=== PATIENT | female | born 1970 | race Caucasian/White ===

== ENCOUNTER 2016-11-12 00:38 | Emergency (ER) | payer MEDICARE, MEDICAID ==
[~2016-11-12] VITALS: Ht 149.9 cm; Wt 90.7 kg
[~2016-11-12 00:38] MED LIST: AC325T PO; ACET-461 PO; ACET-819 PO; ACHD5005 PO; ASP81CT; ASP81TEC PO; ASPI-875 PO; CLCX200C PO; CYAN100053 IM; DCS100C PO; ENXP40I.4 SC; FLT05NA16 NSEACH; FLUT16SP22 NSEACH; HYDR-2997 PO; INSA10V; INSASP10V SC; INSU100I10 SQ; INSU100I14 SQ; INSU100V6; LEVE1U SQ; LISI-594 PO; LISI5TAB PO; LOPE2TAB17 PO; LVT.112T PO; LVT.1T PO; MEDR150D4 IM; MEDR5TAB4; METF-380 PO; OXYC-12 PO; POLY17PO23 PO; SIMV20TA3 PO; SIMV40TA2; SRTR100T PO; TRM50T PO; VITAMIN B12 IM
--- OUTSIDE RECORDS SUMMARY | 2016-11-12 00:45 | XMS REPORT | Continuity of Care Document ---
Author Author [facility] Organization [facility] Address Unknown Phone Unavailable Care Team Providers Care Practice Architect Name Role Phone ELIZABETHOMAIRA HAMMOND III DO PP Insurance Providers Payer Name Policy Number Subscriber Name Relationship [facility] [id number] Leonides Cedeno 01 Self / Same As Patient Wps Medicare [id number] Leonides Cedeno Self / Same As Patient Advance Directives Directive Response Recorded Date Advance Directives N 01/07/13 3:52pm Health Care Power of Infant Lead Teacher N 01/07/13 3:52pm Organ Donor N 01/07/13 3:52pm Problems No Known Problems or Medical conditions. Social History History Response Recorded Date/Time Alcohol Use Denies Use 01/07/13 3:53pm Recreational Drug Use N 01/07/13 3:53pm Recent Foreign Travel N 01/07/13 3:53pm Recent Infectious Disease Exposure N 3:53pm Hospitalization with Isolation Denies 3:53pm Allergies, Adverse Reactions, Alerts Allergen Type Severity Reaction Last Updated Cephalexin Allergy Mild 04/22/09 Medications Medication Dose Units Route Sig Qty Days Levothyroxine Sodium (Levothyroxine 112 Mcg Tab) 1 Each PO daily@0630 Insulin Detemir (Levemir Pen) 24 Units SQ HS Insulin Aspart (Novolog) 10 Unit SQ 1700 Insulin Aspart (Novolog Vial) 3 Unit SC 06,11 Fluticasone Propionate (Flonase 0.05% Nasal Baggs) 1 Sprays NSEACH HS [vitamin b-12 inj] 1000 Mcg IM monthly Celecoxib (Celebrex) 1 Each PO BID Loperamide HCl (Imodium A-D) 0 PO UD Medroxyprogesterone Acet (Medroxyprogesterone Acetate) 150 Mg IM EVERY 3 MONTHS Sertraline HCl (Zoloft) 100 Mg PO HS Simvastatin 20 Mg PO HS Metformin HCl (Metformin 1000 Mg) 1000 Mg PO BID Acetaminophen (Pain Relief Extra Strength) 1000 Mg PO Q6H PRN Fluticasone Propionate (Flonase 0.05% Nasal Baggs) 1 Baggs NSEACH HS Insulin Glargine (Lantus Solostar) 24 Units SQ HS Aspirin (Aspirin Ec 81 Mg) 81 Mg PO DAILY Lisinopril (Zestril) 5 Mg PO DAILY Levothyroxine Sodium (Levothyroxine 100 Mcg Tab) 100 Mcg PO DAILY Acetaminophen/Hydrocodone Bitart (Lortab 7.5/500 Tablet) 1 Each PO Q4HR PRN 15 Tramadol HCl (Ultram) 1 Tab PO QID 40 Insulin Aspart (Novolog Mix 70/30) Medroxyprogesterone Acetate (Medroxyprogesterone Acetatae) Immunizations Name Given Type Date of Pneumonia Vaccine 12/18/09 H Date of Influenza Vaccine 05/17/12 H Response Recorded Date/Time Status not known Unknown Results Test Date Result Interp. Ref. Range Activated Partial Thromboplast Time December 18, 2012 2:45pm 32 SEC N 24-35 Adrenocorticotropic Hormone January 15, 2013 5:45am 14 PG/ML - Alanine Aminotransferase (ALT/SGPT) September 27, 2011 12: 30pm 38 U/L N 30-65 Albumin September 27, 2011 12:30pm 3.4 G/ DL N 3.4-5.0 Alkaline Phosphatase September 27, 2011 12:30pm 84 U/L N 50-136 Aspartate Amino Transf (AST/SGOT) September 27, 2011 12:30pm 19 U/L N 15-37 BUN/Creatinine Ratio January 08, 2013 5:55am 17 - Basophils # (Auto) December 18, 2012 2:45pm 0.0 10^3/uL N 0.0-0.1 Basophils (%) (Auto) December 18, 2012 2:45pm 1 % N 0-10 Blood Urea Nitrogen January 08, 2013 5:55am 25 MG/DL H 7-18 Calcium Level January 08, 2013 5:55am 8.0 MG/DL L 8.5-10.1 Carbon Dioxide Level January 08, 2013 5:55am 27 MMOL/L N 21-32 Chloride Level January 08, 2013 5:55am 111 MMOL/L H 101-110 Cholesterol Level September 27, 2011 12:30pm 127 MG/DL N -200 Cortisol Baseline January 10, 2013 8:06am 0 24.5 - Cortisol Response to ACTH 1 Hour January 10, 2013 8:06am 3480 32.7 - Cortisol Response to ACTH 1/2 Hour January 10, 2013 8:06am 1560 29.9 - Creatinine January 14, 2013 6:22am 1.2 MG/ DL N 0.6-1.3 Eosinophils # (Auto) December 18, 2012 2:45pm 0.2 10^3/uL N 0.0-0.3 Eosinophils (%) (Auto) December 18, 2012 2:45pm 2 % N 0-10 Glucose Level January 08, 2013 5:55am 173 MG/DL H 74-106 HDL Cholesterol September 27, 2011 12:30pm 41 MG/DL N 35-60 Hematocrit January 08, 2013 5:55am 24 % L 35-52 Hemoglobin January 08, 2013 5:55am 7.7 G/ DL L 11.5-16.0 Hemoglobin A1c September 27, 2011 12:30pm 6.2 % N 4.5-6.2 Human Growth Hormone January 15, 2013 5:45am 0.4 NG/ML - LDL Cholesterol September 27, 2011 12:30pm 60 MG/DL N 0-129 Lipase January 16, 2006 6:37pm 129 U/L N 114-286 Lymphocytes # (Auto) December 18, 2012 2:45pm 3.0 X 10^3 N 1.0-4.0 Lymphocytes (%) (Auto) December 18, 2012 2:45pm 42 % N 12-44 Mean Corpuscular Hemoglobin December 18, 2012 2:45pm 32 PG N 25-34 Mean Corpuscular Hemoglobin Concent December 18, 2012 2:45pm 33 G/DL N 32-36 Mean Corpuscular Volume December 18, 2012 2:45pm 97 FL N 80-99 Mean Platelet Volume December 18, 2012 2:45pm 9.4 FL N 7.4-10.4 Miscellaneous Test Result January 10, 2013 8:06am ANTI-ADRENAL AB - Monocytes # (Auto) December 18, 2012 2:45pm 0.6 X 10^3 N 0.0-1.0 Monocytes (%) (Auto) December 18, 2012 2:45pm 8 % N 0-12 Neutrophils # (Auto) December 18, 2012 2:45pm 3.4 X 10^3 N 1.8-7.8 Neutrophils (%) (Auto) December 18, 2012 2:45pm 48 % N 42-75 Platelet Count December 18, 2012 2:45pm 365 10^3/uL N 130-400 Potassium Level January 08, 2013 5:55am 5.9 MMOL/L H 3.6-5.0 Prolactin January 15, 2013 5:45am 18.2 NG/ ML - Prothrombin Time December 18, 2012 2:45pm 12.9 SEC N 12.2-14.7 Red Blood Count December 18, 2012 2:45pm 3.88 10^6/uL L 4.35-5.85 Red Cell Distribution Width December 18, 2012 2:45pm 14.2 % N 10.0-14.5 Serum Test, Qualitative April 22, 2009 6:50pm NEGATIVE - Sodium Level January 08, 2013 5:55am 141 MMOL/L N 135-145 Thyroid Stimulating Hormone (TSH) January 07, 2013 5:40am 2.53 UIU/ML N 0.34-5.60 Total Bilirubin September 27, 2011 12:30pm 0.3 MG/DL N 0.0-1.0 Total Cortisol January 08, 2013 5:55am 4.7 L UG/DL - Total Protein September 27, 2011 12:30pm 7.5 G/DL N 6.4-8.2 Triglycerides Level September 27, 2011 12:30pm 128 MG/DL N 30.0-150.0 Urine Bacteria December 18, 2012 2:45pm MODERATE /HPF H - Urine Bilirubin December 18, 2012 2:45pm NEGATIVE - Urine Casts December 18, 2012 2:45pm NONE / LPF - Urine Clarity December 18, 2012 2:45pm CLEAR - Urine Color December 18, 2012 2:45pm YELLOW - Urine Creatinine Calculated September 27, 2011 12:30pm 1.32 G/L - Urine Crystals December 18, 2012 2:45pm NONE /LPF - Urine Culture Indicated December 18, 2012 2:45pm YES - Urine Glucose (UA) December 18, 2012 2:45pm NEGATIVE - Urine HCG, Qualitative January 16, 2006 6:37pm Negative - Urine Hyaline Casts January 16, 2006 6:28pm 0 -2 H - Urine Ketones December 18, 2012 2:45pm NEGATIVE - Urine Leukocyte Esterase December 18, 2012 2:45pm TRACE H - Urine Microalbumin/Creatinine Ratio September 27, 2011 12: 30pm 214.9 H MG/GCR - Urine Mucus December 18, 2012 2:45pm NEGATIVE /LPF - Urine Nitrate January 16, 2006 6:28pm Negative - Urine Nitrite December 18, 2012 2:45pm NEGATIVE - Urine Test January 05, 2013 10:40am NEGATIVE - Urine Protein December 18, 2012 2:45pm 2+ H - Urine RBC December 18, 2012 2:45pm NONE / HPF - Urine Random Microalbumin September 27, 2011 12:30pm 283.7 H MG/L - Urine Specific Prole December 18, 2012 2:45pm 1.015 L - Urine Squamous Epithelial Cells December 18, 2012 2:45pm 0-2 /HPF - Urine Urobilinogen December 18, 2012 2:45pm NORMAL MG/DL - Urine WBC December 18, 2012 2:45pm 0-2 / HPF - Urine pH December 18, 2012 2:45pm 6 - VLDL Cholesterol September 27, 2011 12:30pm 26 MG/DL N 5-40 Vitamin B12 Level January 08, 2013 5:55am 223 PG/ML - White Blood Count December 18, 2012 2:45pm 7.2 10^3/uL N 4.3-11.0 Urine Creatinine mg/dL September 27, 2011 12:30pm 132 MG/DL - Glucometer January 16, 2013 11:00am 114 MG/ DL H 70-110 Smear Scan January 16, 2006 6:37pm Yes - Estimat Glomerular Filtration Rate December 18, 2012 2:45pm 42 - Urine RBC (Auto) December 18, 2012 2:45pm NEGATIVE - INR Comment December 18, 2012 2:45pm 1.0 N 0.8-1.4 Procedures Procedure Code Date TOTAL HIP REPLACEMENT 81.51 01/05/13 MRSA Screen 01/05/13 Urine Culture 12/18/12 Encounters Encounter Location Date/Time Discharged Inpatient [facility] 3:05pm Registered Emergency Room [facility] 12:00am Departed Emergency Room [facility] 12 :00am
[2016-11-12 01:00] LABS: BASOPHILS % (AUTO) 1 % (0-10); EOSINOPHILS # (AUTO) 0.1 10^3/uL (0.0-0.3); EOSINOPHILS % (AUTO) 1 % (0-10); LYMPHOCYTES # (AUTO) 2.2 X 10^3 (1.0-4.0); LYMPHOCYTES % (AUTO) 31 % (12-44); MEAN CORPUSCULAR HEMOGLOBIN 28 PG (25-34); MEAN CORPUSCULAR HGB CONC 31 G/DL (32-36); MEAN CORPUSCULAR VOLUME 90 FL (80-99); MONOCYTES # (AUTO) 0.7 X 10^3 (0.0-1.0); MONOCYTES % (AUTO) 9 % (0-12); NEUTROPHILS % (AUTO) 58 % (42-75); PLATELET COUNT 600 10^3/uL (130-400); RED BLOOD COUNT 3.08 10^6/uL (4.35-5.85); RED CELL DISTRIBUTION WIDTH 15.7 % (10.0-14.5); WHITE BLOOD COUNT 6.9 10^3/uL (4.3-11.0)
[2016-11-12] MEDS ORDERED: DEXTROSE 50% 50 ML (IMS) SYR IV ONE (01:00)
[2016-11-12 01:16] LABS: ALBUMIN 2.8 G/DL (3.2-4.5); BILIRUBIN,TOTAL 0.2 MG/DL (0.1-1.0); CALCIUM 8.5 MG/DL (8.5-10.1); CREATININE SERUM 2.76 MG/DL (0.60-1.30); POTASSIUM 5.5 MMOL/L (3.6-5.0)
[2016-11-12] MEDS ORDERED: D5 NS 1000 ML IV SOLUTION 1,000 ML IV ONE (01:57)
--- NOTE | 2016-11-12 02:15 | ED General ---
General Chief Complaint: Glucose Problems Stated Complaint: GLUCOSE PROBLEMS Nursing Triage Note: BROUGHT IN BY [facility] FOR C/O ALTERED MENTAL STATUS, LOW BLOOD GLUCOSE. Nursing Sepsis Screen: No Definite Risk Source of Information: Patient (LIMITED HISTORIAN), Caregiver (FACILITY NURSE) , EMS History of Present Illness Time Seen by Provider: 00:35 Initial Comments PT ARRIVES VIA EMS FROM [place] PT IS INSULIN DEPENDENT DIABETIC. BLOOD GLUCOSE WAS 68 AT [facility], WAS GIVEN LONG ACTING INSULIN AT 2100 AFTER A SNACK OF COTTAGE CHEESEALCIRA PER SPECIAL PROJECTS MANAGER. PT BEGAN TO HAVE DECREASED MENTATION AND ACCUCHECK WAS 23 PER [facility]FF EMS REPORT THAT ACCUCHECK WAS 43 ON THEIR ARRIVAL AND THEY GAVE PT ORAL GLUCOSE ACCUCHECK IS 44 ON ARRIVAL HERE PT HAS NO COMPLAINTS PT STATES SHE FEELS FINE. SPECIAL PROJECTS MANAGER REPORTS THAT BLOOD SUGAR WAS IN 300'S YESTERDAY. NO CHANGE IN INSULIN DOSE Allergies and Home Medications Allergies Coded Allergies: Cephalexin (Unverified Allergy, Mild, 04/22/09) Home Medications Acetaminophen 500 Mg Tablet 1,000 MG PO Q6H PRN PRN (Reported) PRN PAIN/ ELEVATED TEMP TAKES 2 OF 500MG TABS EVERY 6 HOURS NEEDED Acetaminophen 325 Mg Tablet 650 MG PO Q4hrs. PRN PRN (Reported) Aspirin 81 Mg Tablet.dr 81 MG PO DAILY (Reported) Cyanocobalamin 1,000 Mcg/Ml Vial 1,000 MCG IM MONTHLY (Reported) Docusate Sodium 100 Mg Capsule 100 MG PO DAILY PRN PRN (Reported) PRN CONSTIPATION WHILE TAKING PAIN MEDS Enoxaparin Sodium 40 Mg/0.4 Ml Soln 40 MG SC DAILY (Reported) Lovenox 40mg sc daily; STOP on 03/16/13. Fluticasone Propionate 16 Gm Naspr 1 SPRAY NSEACH HS (Reported) Insulin Glargine,Hum.rec.anlog 300 Unit/3 Ml Insuln.pen 24 UNITS SQ HS (Reported ) Levothyroxine Sodium 112 Mcg Tablet 112 MCG PO DAILY (Reported) Lisinopril 5 Mg Tablet 5 MG PO DAILY (Reported) Loperamide Hcl 2 Mg Tablet 0 PO UD PRN PRN (Reported) 2 CAPS INITIALLY, THEN 1 CAP AFTER EACH LOOSE STOOL. NOT TO EXCEED 8/24 HRS PRN PRN DIARRHEA Medroxyprogesterone Acet 150 Mg/1 Ml Disp.syrin 150 MG IM EVERY 3 MONTHS ( Reported) Metformin Hcl 1,000 Mg Tablet 1,000 MG PO BID (Reported) Oxycodone Hcl/Acetaminophen 1 Each Tablet #90 1-2 TAB PO Q4HRS. PRN PRN ( Reported) PERCOCET 5/325: 1-2 TABS P.O. Q4HRS.PRN PAIN. Polyethylene Glycol 17 Gm Pack 17 GM PO DAILY @ 1999 (Reported) Sertraline Hcl 100 Mg Tab 100 MG PO HS (Reported) Simvastatin 20 Mg Tablet 20 MG PO HS (Reported) Constitutional: see HPI Respiratory: no symptoms reportedNo short of breath Cardiovascular: no symptoms reportedNo chest pain, No syncope Gastrointestinal: no symptoms reported Genitourinary: other (CHRONIC RENAL INSUFFICIENCY--LAST GFR WAS 23 PER SPECIAL PROJECTS MANAGER) Musculoskeletal: other (PT RECENTLY HAD SURGERY ON LEFT LEG--POSTERIOR/ LATERAL TO LEFT KNEE. ---PT HAD PART OF HARDWARE REMOVED (HAD PLATE PLACED IN FEMUR AND SCREWS WERE POKING THROUGH SKIN) --SURGERY DONE IN [place] BY DR. ESPINOZA. WOUND HAS COMPLETELY DEHISCED. NO DRESSING IS OVER THE WOUND. NO DRAINAGE OR REDNESS FROM WOUND. PT IS NON-AMBULATORY) Skin: other ( ABOVE) Psychiatric/Neurological: See HPI Hematologic/Lymphatic: Anemia Past Sqaodte-Toyxlb-Ofknrp Hx Patient Social History Alcohol Use: Denies Use Recreational Drug Use: No Smoking Status: Never a Smoker Recent Foreign Travel: No Contact w/Someone Who Travel: No Recent Infectious Disease Expo: No Recent Hopitalizations: Yes (HARDWARE REMOVAL FROM LEFT LEG) Immunizations Up To Date Tetanus Booster (TDap): Less than 5yrs Date of Pneumonia Vaccine: Jun 15, 2011 Date of Influenza Vaccine: May 17, 2012 Seasonal Allergies Seasonal Allergies: No Surgeries HX Surgeries: Yes (LEFT HIP FUSION WHEN 4; LEFT HIP REPLACEMENT/ REMOVAL DUE TO FAILURE AND INFECTED HARDWARE AND FEMUR FRACTURE; REPAIR OF FEMUR FRACTURE AND REVISION OF HIP REPLACEMENT; PART OF HARDWARE REMOVED LEFT DISTAL FEMUR 2016--DR. ESPINOZA. ) Surgeries: Orthopedic Respiratory Hx Respiratory Disorders: No Cardiovascular Hx Cardiac Disorders: Yes Cardiac Disorders: Hypertension Neurological Hx Neurological Disorders: Yes (DOWN'S SYNDROME; MR) Neurological Disorders: Developmental Disorder Reproductive System : No Hx Reproductive Disorders: No Genitourinary Hx Genitourinary Disorders: Yes (CHRONIC RENAL FAILURE--GFR 23 PER SPECIAL PROJECTS MANAGER ON 11/12/16) Genitourinary Disorders: Renal Failure Gastrointestinal Hx Gastrointestinal Disorders: No Musculoskeletal Hx Musculoskeletal Disorders: Yes (LEFT HIP AND FEMUR SURGERIES. NON-AMBLATORY BUT CAN STAND FOR TRANSFERS WITH ASSIST, PER CAREGIVER ON 11/12/16) Musculoskeletal Disorders: Arthritis Endocrine Hx Endocrine Disorders: Yes Endocrine Disorders: Diabetes, Insulin dep, Hypothyroidsim HEENT HX ENT Disorders: Yes (GLASSES; POOR DENTITION) Cancer Hx Cancer: No Psychosocial Hx Psychiatric Problems: Yes (DOWN'S ; DEVELOPMENTAL DISORDER) Integumentary HX Skin/Integumentary Disorder: No Blood Transfusions Hx Blood Disorders: Yes (CHRONIC ANEMIA--BASELINE 9-10, PER SPECIAL PROJECTS MANAGER ON ) Physical Exam Vital Signs Vital Sign - Last 12Hours 11/12/16 00:41 Temp 97.9 Pulse 86 Resp 18 B/P 150/103 Pulse Ox 97 O2 Delivery Room Air Capillary Refill : Less Than 3 Seconds General Appearance: No Apparent Distress WD/WN Obese Other (SMILING, VERY TALKATIVE. ) HEENT: Other (POOR DENTITION) Neck: Normal Inspection Respiratory: Normal Breath Sounds No Accessory Muscle Use No Respiratory Distress Cardiovascular: Regular Rate, Rhythm No Murmur Normal Peripheral Pulses Gastrointestinal: Non Tender Soft Extremity: Other (APPROXIMATELY 3 X 4 CM DEHISCED WOUND TO LEFT POSTERIOR/ LATERAL KNEE AREA. NO DRAINAGE, NO SIGNIFICANT ERYTHEMA. LEFT LOWER LEG WITH HEAVY ЕЛЕНА BANDAGE-SPECIAL PROJECTS MANAGER REPORTS IT IS IN PLACE TO PREVENT SWELLING, BUT NO DRESSING IS OVER THE SURGICAL WOUND. ) Neurologic/Psychiatric: Alert No Motor/Sensory Deficits Normal Mood/Affect personnel technician II-XII Norm as Tested Other (NORMAL BASELINE OF --ORIENTED TO PERSON, KNOWS SHE LIVES IN [place], DOES NOT KNOW TIME, MONTH, YEAR. KNOWS SHE IS HERE BECAUSE BLOOD SUGAR WAS LOW BUT DOES NOT RECALL EVENTS OF TONIGHT. ) Skin: Normal Color Warm/Dry Other (SURGICAL WOUND ABOVE) Progress/Results/Core Measures Results/Orders Lab Results Laboratory Tests Test 11/12/16 00:43 11/12/16 00:55 11/12/16 01:41 11/12/16 02:25 Range/Units Glucometer 44 *L 141 H 70-110 MG/DL Alanine Aminotransferase (ALT/SGPT) 21 0-55 U/L Albumin 2.8 L 3.2-4.5 G/DL Alkaline Phosphatase 77 40-136 U/L Anion Gap 11 5-14 MMOL/L Aspartate Amino Transf (AST/SGOT) 21 5-34 U/L BUN/Creatinine Ratio 18 Basophils # (Auto) 0.0 0.0-0.1 10^3/uL Basophils (%) (Auto) 1 0-10 % Blood Urea Nitrogen 50 H 7-18 MG/DL Calcium Level 8.5 8.5-10.1 MG/DL Carbon Dioxide Level 20 L 21-32 MMOL/L Chloride Level 111 H 98-107 MMOL/L Creatinine 2.76 H 0.60-1.30 MG/DL Eosinophils # (Auto) 0.1 0.0-0.3 10^3/uL Eosinophils (%) (Auto) 1 0-10 % Estimat Glomerular Filtration Rate 19 Glucose Level 47 *L 70-105 MG/DL Hematocrit 28 L 35-52 % Hemoglobin 8.6 L 11.5-16.0 G/DL Lymphocytes # (Auto) 2.2 1.0-4.0 X 10^3 Lymphocytes (%) (Auto) 31 12-44 % Mean Corpuscular Hemoglobin 28 25-34 PG Mean Corpuscular Hemoglobin Concent 31 L 32-36 G/DL Mean Corpuscular Volume 90 80-99 FL Mean Platelet Volume 9.0 7.4-10.4 FL Monocytes # (Auto) 0.7 0.0-1.0 X 10^3 Monocytes (%) (Auto) 9 0-12 % Neutrophils # (Auto) 4.0 1.8-7.8 X 10^3 Neutrophils (%) (Auto) 58 42-75 % Platelet Count 600 H 130-400 10^3/uL Potassium Level 5.5 H 3.6-5.0 MMOL/L Red Blood Count 3.08 L 4.35-5.85 10^6/uL Red Cell Distribution Width 15.7 H 10.0-14.5 % Sodium Level 142 135-145 MMOL/L Total Bilirubin 0.2 0.1-1.0 MG/DL Total Protein 8.0 6.4-8.2 G/DL White Blood Count 6.9 4.3-11.0 10^3/uL Urine Bacteria NEGATIVE /HPF Urine Bilirubin NEGATIVE NEGATIVE Urine Casts NONE /LPF Urine Clarity CLEAR Urine Color YELLOW Urine Crystals NONE /LPF Urine Culture Indicated NO Urine Glucose (UA) NEGATIVE NEGATIVE Urine Ketones NEGATIVE NEGATIVE Urine Leukocyte Esterase 2+ H NEGATIVE Urine Mucus NEGATIVE /LPF Urine Nitrite NEGATIVE NEGATIVE Urine Protein 3+ H NEGATIVE Urine RBC NONE /HPF Urine RBC (Auto) 1+ H NEGATIVE Urine Specific Albin 1.015 L 1.016-1.022 Urine Squamous Epithelial Cells RARE /HPF Urine Urobilinogen NORMAL NORMAL MG/DL Urine WBC RARE /HPF Urine pH 6 5-9 Test 11/12/16 02:54 Range/Units Glucometer 323 H 70-110 MG/DL My Orders Orders-GABRIELLE WALLACE DO Accucheck Stat ONCE (11/12/16 00:51) Saline Lock/Iv-Start (11/12/16 00:51) Cbc With Automated Diff (11/12/16 00:51) Comprehensive Metabolic Panel (11/12/16 00:51) Ua Culture If Indicated (11/12/16 00:51) D50w (Emergency) Syringe (Dextrose 50% 5 (11/12/16 01:00) Saline Lock/Iv-Start (11/12/16 01:57) D5 Ns 1000 Ml Iv Solution (Dextrose 5%/0 (11/12/16 01:57) Accucheck Stat ONCE (11/12/16 02:52) Medications Given in ED Current Medications Medications Dose Ordered Sig/Merary Route Start Time Stop Time Status Last Admin Dose Admin Dextrose 50 ml 50 ml ONCE ONCE IV 11/12/16 01:00 11/12/16 01:01 DC 11/12/16 00:57 50 ML Dextrose/Sodium Chloride 1,000 ml @ 0 mls/hr Q0M ONCE IV 11/12/16 01:57 11/12/16 01:58 DC 11/12/16 02:05 0 MLS/HR Vital Signs/I&O Vital Sign - Last 12Hours 11/12/16 11/12/16 00:41 03:00 Temp 97.9 98.0 Pulse 86 84 Resp 18 16 B/P 150/103 Pulse Ox 97 100 O2 Delivery Room Air Blood Pressure Mean: 74 Point of Care Testing Finger Stick Blood Glucose: 141 Blood Glucose Action Taken: ERP NOTIFIED Progress Note : Progress Note REPEAT ACCUCHECK 141 REPEAT ACCUCHECK 323 PRIOR TO DISMISSAL DRESSING PLACED OVER WOUND TO LEFT LEG Departure Impression Impression: Primary Impression: Hypoglycemia associated with diabetes Disposition: HOME, SELF-CARE Condition: Improved Departure-Patient Inst. Referrals: PIERRE PEOPLES MD (PCP) Primary Care Physician Patient Instructions: HYPOGLYCEMIA Add. Discharge Instructions: CHECK BLOOD SUGAR EVERY HOUR X 4 TONIGHT, THEN IF STABLE, MAY RESUME ACCUCHECKS 4 TIMES A DAY-BEFORE EACH MEAL AND AT BEDTIME CONTINUE REGULAR INSULIN DOSES IF BLOOD SUGAR READINGS ARE >100 RETURN TO ER IF SYMPTOMS PERSIST All discharge instructions reviewed with patient and/or family. Voiced understanding. GABRIELLE WALLACE DO Nov 12, 2016 02:15
[2016-11-12 02:33] LABS: BILIRUBIN,URINE NEGATIVE (NEGATIVE); KETONES,URINE NEGATIVE (NEGATIVE); LEUKOCYTE ESTERASE ,URINE 2+ (NEGATIVE); NITRITE,URINE NEGATIVE (NEGATIVE); PH,URINE 6 (5-9); PROTEIN,URINE 3+ (NEGATIVE); UROBILINOGEN,URINE NORMAL (NORMAL)
[2016-11-12 02:44] LABS: SQUAMOUS EPITHELIAL CELL,UR RARE /HPF; WBC,URINE RARE /HPF
[2016-11-12 03:00] VITALS: BP 137/69
== END 2016-11-12 03:00 | disposition home or self-care (01) ==
LOC: EDUNIT# 00:38 → ER 00:40
DX: E11.649 Type 2 diabetes mellitus with hypoglycemia without coma (principal); Q90.9 Down syndrome, unspecified; T81.31XA Disruption of external operation (surgical) wound, not elsewhere classified, initial encounter; Z79.4 Long term (current) use of insulin; Z79.84 Long term (current) use of oral hypoglycemic drugs; Z79.899 Other long term (current) drug therapy
CPT/HCPCS: 36415; 80053; 81000; 82962; 85025; 96361; 96374

== ENCOUNTER → 2016-11-25 | Outpatient (CLI) | payer MEDICARE, MEDICAID ==
[2016-11-25 08:02] LABS: CALCIUM 8.2 MG/DL (8.5-10.1); CREATININE SERUM 2.28 MG/DL (0.60-1.30); POTASSIUM 5.2 MMOL/L (3.6-5.0)
== END ==
PROVIDERS: ATTEND Family Medicine
DX: Z51.81 Encounter for therapeutic drug level monitoring (principal); Z79.2 Long term (current) use of antibiotics
CPT/HCPCS: 80048; 80202

== ENCOUNTER → 2016-12-01 | Outpatient (CLI) | payer MEDICARE, MEDICAID ==
[2016-12-01 09:28] LABS: CALCIUM 8.1 MG/DL (8.5-10.1); CREATININE SERUM 2.12 MG/DL (0.60-1.30); POTASSIUM 5.2 MMOL/L (3.6-5.0)
== END ==
PROVIDERS: ATTEND Family Medicine
DX: M86.9 Osteomyelitis, unspecified (principal)
CPT/HCPCS: 80048; 80202

== ENCOUNTER → 2016-12-02 | Outpatient (CLI) | payer MEDICARE, MEDICAID | PROVIDERS: ATTEND Family Medicine | DX: M86.9 Osteomyelitis, unspecified (principal) | CPT/HCPCS: 80202 ==

== ENCOUNTER 2017-09-23 13:00 | Outpatient (RCR) | payer MEDICARE, MEDICAID | END 2017-10-31 16:11 | disposition home or self-care (01) | PROVIDERS: ATTEND Orthopaedic Surgery Sports Medicine | DX: Z98.890 Other specified postprocedural states (principal) ==

== ENCOUNTER 2017-10-08 13:43 | Outpatient (RCR) | payer MEDICARE, MEDICAID ==
[2017-08-01 13:36] LABS: ABSOLUTE RETIC # 49 10e9/L (24-90); BASOPHILS % (AUTO) 1 % (0-10); EOSINOPHILS # (AUTO) 0.1 10^3/uL (0.0-0.3); EOSINOPHILS % (AUTO) 2 % (0-10); HEMATOCRIT 27 % (35-52); HEMOGLOBIN 8.8 G/DL (11.5-16.0); LYMPHOCYTES # (AUTO) 2.5 X 10^3 (1.0-4.0); LYMPHOCYTES % (AUTO) 31 % (12-44); MEAN CORPUSCULAR HEMOGLOBIN 30 PG (25-34); MEAN CORPUSCULAR HGB CONC 32 G/DL (32-36); MEAN CORPUSCULAR VOLUME 93 FL (80-99); MEAN PLATELET VOLUME 9.3 FL (7.4-10.4); MONOCYTES # (AUTO) 0.6 X 10^3 (0.0-1.0); MONOCYTES % (AUTO) 8 % (0-12); NEUTROPHILS # (AUTO) 4.6 X 10^3 (1.8-7.8); NEUTROPHILS % (AUTO) 58 % (42-75); PLATELET COUNT 461 10^3/uL (130-400); RED BLOOD COUNT 2.93 10^6/uL (4.35-5.85); RED CELL DISTRIBUTION WIDTH 14.3 % (10.0-14.5); RETICULOCYTE % 1.68 % (0.50-2.40); WHITE BLOOD COUNT 7.9 10^3/uL (4.3-11.0)
[2017-08-01 14:13] LABS: BILIRUBIN,TOTAL 0.3 MG/DL (0.1-1.0); CALCIUM 9.1 MG/DL (8.5-10.1); CREATININE SERUM 3.92 MG/DL (0.60-1.30); POTASSIUM 4.3 MMOL/L (3.6-5.0); TOTAL PROTEIN 7.7 GM/DL (6.4-8.2)
[~2017-10-08 13:43] MED LIST changes: +DARBEPOETIN 40 MCG/ML (ARANESP) 1 ML VIAL SC SCH
== END 2017-10-30 | disposition home or self-care (01) ==
LOC: ONC 13:43
PROVIDERS: ATTEND Internal Medicine Hematology & Oncology
DX: N18.4 Chronic kidney disease, stage 4 (severe) (principal); D63.1 Anemia in chronic kidney disease; I12.9 Hypertensive chronic kidney disease with stage 1 through stage 4 chronic kidney disease, or unspecified chronic kidney disease; E11.22 Type 2 diabetes mellitus with diabetic chronic kidney disease; E03.9 Hypothyroidism, unspecified; D47.3 Essential (hemorrhagic) thrombocythemia; E66.01 Morbid (severe) obesity due to excess calories; Z68.41 Body mass index [BMI] 40.0-44.9, adult; Z79.899 Other long term (current) drug therapy
CPT/HCPCS: 36415; 80053; 82728; 83540; 85025; 85045; 96372

== ENCOUNTER 2018-02-11 13:52 | Outpatient (RCR) | payer MEDICARE, MEDICAID ==
[2017-12-03 13:47] LABS: ABSOLUTE RETIC # 38 10e9/L (24-90); BASOPHILS % (AUTO) 0 % (0-10); EOSINOPHILS # (AUTO) 0.1 10^3/uL (0.0-0.3); EOSINOPHILS % (AUTO) 2 % (0-10); HEMATOCRIT 30 % (35-52); HEMOGLOBIN 9.6 G/DL (11.5-16.0); LYMPHOCYTES # (AUTO) 2.1 X 10^3 (1.0-4.0); LYMPHOCYTES % (AUTO) 31 % (12-44); MEAN CORPUSCULAR HEMOGLOBIN 31 PG (25-34); MEAN CORPUSCULAR HGB CONC 32 G/DL (32-36); MEAN CORPUSCULAR VOLUME 96 FL (80-99); MEAN PLATELET VOLUME 9.3 FL (7.4-10.4); MONOCYTES # (AUTO) 0.6 X 10^3 (0.0-1.0); MONOCYTES % (AUTO) 8 % (0-12); NEUTROPHILS # (AUTO) 3.9 X 10^3 (1.8-7.8); NEUTROPHILS % (AUTO) 58 % (42-75); PLATELET COUNT 388 10^3/uL (130-400); RED BLOOD COUNT 3.12 10^6/uL (4.35-5.85); RED CELL DISTRIBUTION WIDTH 15.5 % (10.0-14.5); RETICULOCYTE % 1.21 % (0.50-2.40); WHITE BLOOD COUNT 6.7 10^3/uL (4.3-11.0)
[2017-12-03 14:04] LABS: ALBUMIN 3.2 GM/DL (3.2-4.5); BILIRUBIN,TOTAL 0.3 MG/DL (0.1-1.0); CALCIUM 9.1 MG/DL (8.5-10.1); CREATININE SERUM 4.3 MG/DL (0.60-1.30); POTASSIUM 4.5 MMOL/L (3.6-5.0); TOTAL PROTEIN 7.8 GM/DL (6.4-8.2)
[2018-02-11 14:06] LABS: BASOPHILS % (AUTO) 0 % (0-10); EOSINOPHILS # (AUTO) 0.2 10^3/uL (0.0-0.3); EOSINOPHILS % (AUTO) 2 % (0-10); HEMATOCRIT 31 % (35-52); HEMOGLOBIN 9.9 G/DL (11.5-16.0); LYMPHOCYTES # (AUTO) 2.3 X 10^3 (1.0-4.0); LYMPHOCYTES % (AUTO) 33 % (12-44); MEAN CORPUSCULAR HEMOGLOBIN 31 PG (25-34); MEAN CORPUSCULAR HGB CONC 32 G/DL (32-36); MEAN CORPUSCULAR VOLUME 96 FL (80-99); MEAN PLATELET VOLUME 9.6 FL (7.4-10.4); MONOCYTES # (AUTO) 0.5 X 10^3 (0.0-1.0); MONOCYTES % (AUTO) 7 % (0-12); NEUTROPHILS # (AUTO) 3.9 X 10^3 (1.8-7.8); NEUTROPHILS % (AUTO) 58 % (42-75); PLATELET COUNT 380 10^3/uL (130-400); RED BLOOD COUNT 3.18 10^6/uL (4.35-5.85); RED CELL DISTRIBUTION WIDTH 15.1 % (10.0-14.5); WHITE BLOOD COUNT 6.8 10^3/uL (4.3-11.0)
== END 2018-02-18 | disposition home or self-care (01) ==
LOC: ONC 13:52
PROVIDERS: ATTEND Internal Medicine Hematology & Oncology
DX: N18.4 Chronic kidney disease, stage 4 (severe) (principal); D63.1 Anemia in chronic kidney disease; I12.9 Hypertensive chronic kidney disease with stage 1 through stage 4 chronic kidney disease, or unspecified chronic kidney disease; E11.22 Type 2 diabetes mellitus with diabetic chronic kidney disease; E03.9 Hypothyroidism, unspecified; D47.3 Essential (hemorrhagic) thrombocythemia; E66.01 Morbid (severe) obesity due to excess calories; Z68.41 Body mass index [BMI] 40.0-44.9, adult; Z79.899 Other long term (current) drug therapy
CPT/HCPCS: 36415; 80053; 82728; 85025; 85045; 96372

== ENCOUNTER 2018-03-21 13:00 | Outpatient (RCR) | payer MEDICARE, MEDICAID ==
[~2018-03-21 13:00] MED LIST changes: -DARBEPOETIN 40 MCG/ML (ARANESP) 1 ML VIAL SC SCH
== END 2018-03-21 13:51 | disposition home or self-care (01) ==
PROVIDERS: ATTEND Internal Medicine Nephrology
DX: R26.9 Unspecified abnormalities of gait and mobility (principal); Z96.642 Presence of left artificial hip joint

== ENCOUNTER 2018-05-20 15:20 | Outpatient (RCR) | payer MEDICARE, MEDICAID ==
[2018-02-25 12:16] LABS: BASOPHILS % (AUTO) 1 % (0-10); EOSINOPHILS # (AUTO) 0.1 10^3/uL (0.0-0.3); EOSINOPHILS % (AUTO) 2 % (0-10); HEMATOCRIT 31 % (35-52); HEMOGLOBIN 10.4 G/DL (11.5-16.0); LYMPHOCYTES # (AUTO) 1.7 X 10^3 (1.0-4.0); LYMPHOCYTES % (AUTO) 30 % (12-44); MEAN CORPUSCULAR HEMOGLOBIN 32 PG (25-34); MEAN CORPUSCULAR HGB CONC 33 G/DL (32-36); MEAN CORPUSCULAR VOLUME 96 FL (80-99); MEAN PLATELET VOLUME 9.7 FL (7.4-10.4); MONOCYTES # (AUTO) 0.4 X 10^3 (0.0-1.0); MONOCYTES % (AUTO) 8 % (0-12); NEUTROPHILS # (AUTO) 3.4 X 10^3 (1.8-7.8); NEUTROPHILS % (AUTO) 60 % (42-75); PLATELET COUNT 380 10^3/uL (130-400); RED BLOOD COUNT 3.26 10^6/uL (4.35-5.85); RED CELL DISTRIBUTION WIDTH 14.8 % (10.0-14.5); WHITE BLOOD COUNT 5.7 10^3/uL (4.3-11.0)
[2018-03-11 12:55] LABS: BASOPHILS % (AUTO) 1 % (0-10); EOSINOPHILS # (AUTO) 0.1 10^3/uL (0.0-0.3); EOSINOPHILS % (AUTO) 2 % (0-10); HEMATOCRIT 31 % (35-52); HEMOGLOBIN 10.2 G/DL (11.5-16.0); LYMPHOCYTES # (AUTO) 1.9 X 10^3 (1.0-4.0); LYMPHOCYTES % (AUTO) 29 % (12-44); MEAN CORPUSCULAR HEMOGLOBIN 31 PG (25-34); MEAN CORPUSCULAR HGB CONC 33 G/DL (32-36); MEAN CORPUSCULAR VOLUME 95 FL (80-99); MEAN PLATELET VOLUME 9.1 FL (7.4-10.4); MONOCYTES # (AUTO) 0.4 X 10^3 (0.0-1.0); MONOCYTES % (AUTO) 6 % (0-12); NEUTROPHILS % (AUTO) 62 % (42-75); PLATELET COUNT 390 10^3/uL (130-400); RED BLOOD COUNT 3.27 10^6/uL (4.35-5.85); RED CELL DISTRIBUTION WIDTH 14.5 % (10.0-14.5); WHITE BLOOD COUNT 6.4 10^3/uL (4.3-11.0)
[2018-04-08 14:56] LABS: BASOPHILS % (AUTO) 1 % (0-10); EOSINOPHILS # (AUTO) 0.1 10^3/uL (0.0-0.3); EOSINOPHILS % (AUTO) 2 % (0-10); HEMATOCRIT 29 % (35-52); HEMOGLOBIN 9.3 G/DL (11.5-16.0); LYMPHOCYTES # (AUTO) 1.8 X 10^3 (1.0-4.0); LYMPHOCYTES % (AUTO) 28 % (12-44); MEAN CORPUSCULAR HEMOGLOBIN 32 PG (25-34); MEAN CORPUSCULAR HGB CONC 33 G/DL (32-36); MEAN CORPUSCULAR VOLUME 97 FL (80-99); MEAN PLATELET VOLUME 9.1 FL (7.4-10.4); MONOCYTES # (AUTO) 0.5 X 10^3 (0.0-1.0); MONOCYTES % (AUTO) 7 % (0-12); NEUTROPHILS # (AUTO) 4.2 X 10^3 (1.8-7.8); NEUTROPHILS % (AUTO) 63 % (42-75); PLATELET COUNT 374 10^3/uL (130-400); RED BLOOD COUNT 2.94 10^6/uL (4.35-5.85); RED CELL DISTRIBUTION WIDTH 15.2 % (10.0-14.5); WHITE BLOOD COUNT 6.6 10^3/uL (4.3-11.0)
[2018-04-23 10:54] LABS: BASOPHILS # (AUTO) 0.1 10^3/uL (0.0-0.1); BASOPHILS % (AUTO) 1 % (0-10); EOSINOPHILS # (AUTO) 0.1 10^3/uL (0.0-0.3); EOSINOPHILS % (AUTO) 2 % (0-10); HEMATOCRIT 32 % (35-52); HEMOGLOBIN 10.6 G/DL (11.5-16.0); LYMPHOCYTES # (AUTO) 1.9 X 10^3 (1.0-4.0); LYMPHOCYTES % (AUTO) 28 % (12-44); MEAN CORPUSCULAR HEMOGLOBIN 32 PG (25-34); MEAN CORPUSCULAR HGB CONC 33 G/DL (32-36); MEAN CORPUSCULAR VOLUME 98 FL (80-99); MEAN PLATELET VOLUME 9.5 FL (7.4-10.4); MONOCYTES # (AUTO) 0.5 X 10^3 (0.0-1.0); MONOCYTES % (AUTO) 8 % (0-12); NEUTROPHILS # (AUTO) 4.1 X 10^3 (1.8-7.8); NEUTROPHILS % (AUTO) 61 % (42-75); PLATELET COUNT 394 10^3/uL (130-400); RED BLOOD COUNT 3.28 10^6/uL (4.35-5.85); RED CELL DISTRIBUTION WIDTH 15.9 % (10.0-14.5); WHITE BLOOD COUNT 6.7 10^3/uL (4.3-11.0)
[~2018-05-20 15:20] MED LIST changes: +DARBEPOETIN 40 MCG/ML (ARANESP) 1 ML VIAL SC SCH
== END 2018-05-26 | disposition home or self-care (01) ==
LOC: ONC 15:20
PROVIDERS: ATTEND Internal Medicine Hematology & Oncology
DX: N18.4 Chronic kidney disease, stage 4 (severe) (principal); D63.1 Anemia in chronic kidney disease; I12.9 Hypertensive chronic kidney disease with stage 1 through stage 4 chronic kidney disease, or unspecified chronic kidney disease; E11.22 Type 2 diabetes mellitus with diabetic chronic kidney disease; E03.9 Hypothyroidism, unspecified; D47.3 Essential (hemorrhagic) thrombocythemia; E66.01 Morbid (severe) obesity due to excess calories; Z68.41 Body mass index [BMI] 40.0-44.9, adult; Z79.899 Other long term (current) drug therapy
CPT/HCPCS: 36415; 85025; 96372

== ENCOUNTER 2018-06-03 12:37 | Outpatient (RCR) | payer MEDICARE, MEDICAID | END 2018-06-15 | disposition home or self-care (01) | LOC: ONC 12:37 | PROVIDERS: ATTEND Internal Medicine Hematology & Oncology | DX: N18.4 Chronic kidney disease, stage 4 (severe) (principal); D63.1 Anemia in chronic kidney disease; I12.9 Hypertensive chronic kidney disease with stage 1 through stage 4 chronic kidney disease, or unspecified chronic kidney disease; E11.22 Type 2 diabetes mellitus with diabetic chronic kidney disease; E03.9 Hypothyroidism, unspecified; D47.3 Essential (hemorrhagic) thrombocythemia; E66.01 Morbid (severe) obesity due to excess calories; Z68.41 Body mass index [BMI] 40.0-44.9, adult; Z79.899 Other long term (current) drug therapy | CPT/HCPCS: 96372 ==

== ENCOUNTER 2018-08-28 13:43 | Emergency (ER) | payer MEDICARE ==
[~2018-08-28] VITALS: Ht 157.5 cm; Wt 85.7 kg
[~2018-08-28 13:43] MED LIST changes: -ENOX80DI12 SQ; -WARF3TAB56 PO
--- OUTSIDE RECORDS SUMMARY | 2018-08-28 13:52 | XMS REPORT ---
Author Author JANUSZ AVILA Organization [employer] Address Unknown Phone Unavailable Care Team Providers Care Offensive Coordinator Name Role Phone JANUSZ AVILA CP Unavailable Allergies No Known Allergies Problems Problem Type Condition ICD-9 Code Onset Dates Condition Status Assessment Dental examination V72.2 Active Medications No Known Medications Procedures Procedure Coding System Code Date INTRAORL-PERIAPICAL 1 FILM 71102 CPT-4 D0220 May 10, 2015 EXTRAC ERUPTED TOOTH/EXPOSED ROOT CPT-4 D7140 May 10, 2015 LTD ORAL EVALUATION - PROBLEM FOCUS CPT-4 D0140 May 10, 2015 Results No Known Results Summary Purpose [employer] Submission
--- OUTSIDE RECORDS SUMMARY | 2018-08-28 13:53 | XMS REPORT | Continuity of Care Document ---
Author Author [facility] Organization [facility] Address Unknown Phone Unavailable Care Team Providers Care Emery Grinder Name Role Phone PIERRE PEOPLES MD PP Insurance Providers Payer Name Policy Number Subscriber Name Relationship [facility] [id number] Leonides Cedeno 01 Self / Same As Patient Wps Medicare [id number] Leonides Cedeno Self / Same As Patient Advance Directives Directive Response Recorded Date Advance Directives N 02/20/13 1:07pm Health Care Power of Bread Wrapping Machine Feeder N 02/20/13 1:07pm Organ Donor N 02/20/13 1:07pm Problems No Known Problems or Medical conditions. Social History History Response Recorded Date/Time Alcohol Use Denies Use 02/20/13 4:33pm Recreational Drug Use N 02/20/13 4:33pm Recent Foreign Travel N 02/20/13 4:33pm Recent Infectious Disease Exposure N 03/28 4:33pm Hospitalization with Isolation Denies 4:34pm Allergies, Adverse Reactions, Alerts Allergen Type Severity Reaction Last Updated Cephalexin Allergy Mild 04/22/09 Medications Medication Dose Units Route Sig Qty Days Oxycodone Hcl/Acetaminophen (Percocet 5-325 Mg Tablet) 1 - 2 Tab PO Q4HRS. PRN 90 Enoxaparin Sodium (Lovenox Injection) 40 Mg SC DAILY Acetaminophen (Tylenol) 650 Mg PO Q4hrs. PRN Aspirin ([place] Aspirin) 81 Mg PO DAILY Lisinopril (Zestril) 5 Mg PO DAILY Polyethylene Glycol (Miralax 17 Gm Packet) 17 Gm PO DAILY @ 1999 Insulin Glargine (Lantus Solostar) 24 Units SQ HS Cyanocobalamin 1000 Mcg IM MONTHLY Acetaminophen (Tylenol Extra Strength [place]) 1000 Mg PO Q6H PRN Docusate Sodium (Colace) 100 Mg PO DAILY PRN Fluticasone Propionate (Flonase Nasal [place]) 1 [place] NSEACH HS Levothyroxine Sodium (Levothyroxine 112 Mcg Tab) 112 Mcg PO DAILY Loperamide HCl (Imodium A-D) 0 PO UD PRN Medroxyprogesterone Acet (Medroxyprogesterone Acetate) 150 Mg IM EVERY 3 MONTHS Sertraline HCl (Zoloft) 100 Mg PO HS Simvastatin 20 Mg PO HS Metformin HCl (Metformin 1000 Mg) 1000 Mg PO BID Insulin Detemir (Levemir Pen) 24 Units SQ HS Insulin Aspart (Novolog) 10 Unit SQ 1700 Insulin Aspart (Novolog Vial) 3 Unit SC [vitamin b-12 inj] 1000 Mcg IM monthly Acetaminophen (Pain Relief Extra Strength) 1000 Mg PO Q6H PRN Fluticasone Propionate (Flonase 0.05% Nasal [place]) 1 [place] NSEACH HS Insulin Glargine (Lantus Solostar) 24 [...] Name Given Type Date of Pneumonia Vaccine 06/15/11 H Date of Influenza Vaccine 05/17/12 H Response Recorded Date/Time Status not known Unknown Results Test Date Result Interp. Ref. Range Activated Partial Thromboplast Time February 17, 2013 2:00pm 27 SEC N 24-35 Adrenocorticotropic Hormone January 15, 2013 5:45am 14 PG/ML - Alanine Aminotransferase (ALT/SGPT) September 27, 2011 12: 30pm 38 U/L N 30-65 Albumin September 27, 2011 12:30pm 3.4 G/ DL N 3.4-5.0 Alkaline Phosphatase September 27, 2011 12:30pm 84 U/L N 50-136 Aspartate Amino Transf (AST/SGOT) September 27, 2011 12:30pm 19 U/L N 15-37 BUN/Creatinine Ratio February 17, 2013 2:00pm 28 - Basophils # (Auto) February 17, 2013 2:00pm 0.1 10^3/uL N 0.0-0.1 Basophils (%) (Auto) February 17, 2013 2:00pm 1 % N 0-10 Blood Urea Nitrogen February 17, 2013 2:00pm 44 MG/DL H 7-18 Calcium Level February 17, 2013 2:00pm 8.3 MG/DL L 8.5-10.1 Carbon Dioxide Level February 17, 2013 2:00pm 25 MMOL/L N 21-32 Chloride Level February 17, 2013 2:00pm 100 MMOL/L L 101-110 Cholesterol Level September 27, 2011 12:30pm 127 MG/DL N -200 Cortisol Baseline January 10, 2013 8:06am 0 24.5 - Cortisol Response to ACTH 1 Hour January 10, 2013 8:06am 3480 32.7 - Cortisol Response to ACTH 1/2 Hour January 10, 2013 8:06am 1560 29.9 - Creatinine February 17, 2013 2:00pm 1.6 MG/ DL H 0.6-1.3 Eosinophils # (Auto) February 17, 2013 2:00pm 0.3 10^3/uL N 0.0-0.3 Eosinophils (%) (Auto) February 17, 2013 2:00pm 4 % N 0-10 Glucose Level February 17, 2013 2:00pm 208 MG/DL H 74-106 HDL Cholesterol September 27, 2011 12:30pm 41 MG/DL N 35-60 Hematocrit February 17, 2013 2:00pm 33 % L 35-52 Hemoglobin February 17, 2013 2:00pm 10.3 G/ DL L 11.5-16.0 Hemoglobin A1c September 27, 2011 12:30pm 6.2 % N 4.5-6.2 Human Growth Hormone January 15, 2013 5:45am 0.4 NG/ML - LDL Cholesterol September 27, 2011 12:30pm 60 MG/DL N 0-129 Lipase January 16, 2006 6:37pm 129 U/L N 114-286 Lymphocytes # (Auto) February 17, 2013 2:00pm 2.4 X 10^3 N 1.0-4.0 Lymphocytes (%) (Auto) February 17, 2013 2:00pm 35 % N 12-44 Mean Corpuscular Hemoglobin February 17, 2013 2:00pm 31 PG N 25-34 Mean Corpuscular Hemoglobin Concent February 17, 2013 2:00pm 32 G/DL N 32-36 Mean Corpuscular Volume February 17, 2013 2:00pm 97 FL N 80-99 Mean Platelet Volume February 17, 2013 2:00pm 9.4 FL N 7.4-10.4 Miscellaneous Test Result January 10, 2013 8:06am ANTI-ADRENAL AB - Monocytes # (Auto) February 17, 2013 2:00pm 0.4 X 10^3 N 0.0-1.0 Monocytes (%) (Auto) February 17, 2013 2:00pm 6 % N 0-12 Neutrophils # (Auto) February 17, 2013 2:00pm 3.8 X 10^3 N 1.8-7.8 Neutrophils (%) (Auto) February 17, 2013 2:00pm 55 % N 42-75 Platelet Count February 17, 2013 2:00pm 468 10^3/uL H 130-400 Potassium Level February 17, 2013 2:00pm 5.1 MMOL/L H 3.6-5.0 Prolactin January 15, 2013 5:45am 18.2 NG/ ML - Prothrombin Time February 17, 2013 2:00pm 12.7 SEC N 12.2-14.7 Red Blood Count February 17, 2013 2:00pm 3.36 10^6/uL L 4.35-5.85 Red Cell Distribution Width February 17, 2013 2:00pm 15.8 % H 10.0-14.5 Serum Test, Qualitative April 22, 2009 6:50pm NEGATIVE - Sodium Level February 17, 2013 2:00pm 133 MMOL/L L 135-145 Thyroid Stimulating Hormone (TSH) January 07, 2013 5:40am 2.53 UIU/ML N 0.34-5.60 Total Bilirubin September 27, 2011 12:30pm 0.3 MG/DL N 0.0-1.0 Total Cortisol January 08, 2013 5:55am 4.7 L UG/DL - Total Protein September 27, 2011 12:30pm 7.5 G/DL N 6.4-8.2 Triglycerides Level September 27, 2011 12:30pm 128 MG/DL N 30.0-150.0 Urine Bacteria February 17, 2013 2:00pm FEW /HPF H - Urine Bilirubin February 17, 2013 2:00pm NEGATIVE - Urine Casts February 17, 2013 2:00pm NONE / LPF - Urine Clarity February 17, 2013 2:00pm CLEAR - Urine Color February 17, 2013 2:00pm YELLOW - Urine Creatinine Calculated September 27, 2011 12:30pm 1.32 G/L - Urine Crystals February 17, 2013 2:00pm NONE /LPF - Urine Culture Indicated February 17, 2013 2:00pm YES - Urine Glucose (UA) February 17, 2013 2:00pm NEGATIVE - Urine HCG, Qualitative January 16, 2006 6:37pm Negative - Urine Hyaline Casts January 16, 2006 6:28pm 0 -2 H - Urine Ketones February 17, 2013 2:00pm NEGATIVE - Urine Leukocyte Esterase February 17, 2013 2:00pm 1+ H - Urine Microalbumin/Creatinine Ratio September 27, 2011 12: 30pm 214.9 H MG/GCR - Urine Mucus February 17, 2013 2:00pm NEGATIVE /LPF - Urine Nitrate January 16, 2006 6:28pm Negative - Urine Nitrite February 17, 2013 2:00pm NEGATIVE - Urine Test January 05, 2013 10:40am NEGATIVE - Urine Protein February 17, 2013 2:00pm NEGATIVE - Urine RBC February 17, 2013 2:00pm NONE / HPF - Urine Random Microalbumin September 27, 2011 12:30pm 283.7 H MG/L - Urine Specific [place] February 17, 2013 2:00pm 1.020 - Urine Squamous Epithelial Cells February 17, 2013 2:00pm 0-2 /HPF - Urine Urobilinogen February 17, 2013 2:00pm NORMAL MG/DL - Urine WBC February 17, 2013 2:00pm 5-10 / HPF H - Urine pH February 17, 2013 2:00pm 5 - VLDL Cholesterol September 27, 2011 12:30pm 26 MG/DL N 5-40 Vitamin B12 Level January 08, 2013 5:55am 223 PG/ML - White Blood Count February 17, 2013 2:00pm 6.8 10^3/uL N 4.3-11.0 Urine Creatinine mg/dL September 27, 2011 12:30pm 132 MG/DL - Glucometer January 16, 2013 11:00am 114 MG/ DL H 70-110 Smear Scan January 16, 2006 6:37pm Yes - Estimat Glomerular Filtration Rate February 17, 2013 2:00pm 36 - Urine RBC (Auto) February 17, 2013 2:00pm NEGATIVE - INR Comment February 17, 2013 2:00pm 1.0 N 0.8-1.4 Procedures Procedure Code Date TOTAL HIP REPLACEMENT 81.51 01/05/13 ANGEL OF HIP REPLACEMENT, FEMORAL COMPONENT 00.72 02/20/13 MRSA Screen 02/17/13 Urine Culture 02/17/13 Encounters Encounter Location Date/Time Discharged Inpatient [facility] 6:56am Registered Emergency Room [facility] 12:00am Departed Emergency Room [facility] 12 :00am
--- OUTSIDE RECORDS SUMMARY | 2018-08-28 13:53 | XMS REPORT | Continuity of Care Document ---
Author Author [facility] Organization [facility] Address Unknown Phone Unavailable Care Team Providers Care Die Sinking Machine Operator Name Role Phone PIERRE PEOPLES MD PP Insurance Providers Payer Name Policy Number Subscriber Name Relationship [facility] [id number] Leonides Cedeno 01 Self / Same As Patient Wps Medicare [id number] Leonides Cedeno Self / Same As Patient Advance Directives Directive Response Recorded Date Advance Directives N 02/20/13 1:07pm Health Care Power of Auto Leasing Manager N 02/20/13 1:07pm Organ Donor N 02/20/13 [...] (Tylenol) 650 Mg PO Q4hrs. PRN Aspirin ([place] Aspirin) 81 Mg PO DAILY Lisinopril (Zestril) 5 Mg PO DAILY Polyethylene Glycol (Miralax 17 Gm Packet) 17 Gm PO DAILY @ 1999 Insulin Glargine (Lantus Solostar) 24 Units SQ HS Cyanocobalamin 1000 Mcg IM MONTHLY Acetaminophen (Tylenol Extra Strength Arthrit) 1000 Mg PO Q6H PRN Docusate Sodium (Colace) 100 Mg PO DAILY PRN Fluticasone Propionate (Flonase Nasal [place]) 1 [place] NSEACH HS Levothyroxine Sodium (Levothyroxine 112 Mcg [...] Q6H PRN Fluticasone Propionate (Flonase 0.05% Nasal [place]) 1 [place] NSEACH HS Insulin Glargine (Lantus Solostar) 24 [...] 12:30pm 283.7 H MG/L - Urine Specific [place] February 17, 2013 2:00pm 1.020 - Urine [...]
--- OUTSIDE RECORDS SUMMARY | 2018-08-28 13:55 | XMS REPORT | Continuity of Care Document ---
Author Author [facility] Organization [facility] Address Unknown Phone Unavailable Allergies Active Description Code Type Severity Reaction Onset Reported/Identified Relationship to Patient Clinical Status Yes KEFLEX KEFLEX UNKNOWN Yes ЕЛЕНА INHIBITORS UNKNOWN OTHER Yes KEFLEX UNKNOWN DERMATOLOGICAL - HIV Yes cephalexin [id number] Drug Allergy Mild N/A 04/22/2009 Medications Medication Packaging Start Date Stop Date Route Dosage Sig NORMAL SALINE 1000CC IV BAG INJ 0.9 % (NS 1000CC IV BAG) ml 11/06/2016 11/07/2016 CONTINUOUSEVERY 0 Hour CLINDAMYCIN 600MG/50CC BAG IV 600 MG/50CC (CLEOCIN PREMIX 600MG/ 50CC) MG 11/06/2016 11/06/2016 ONCE&0830 FENTANYL AMP INJ 100 MCG/2CC MCG 11/13/2016 ONCE&1023 MEDROXYPROGESTERONE SYRINGE INJ 150 MG (DEPO-PROVERA SYRINGE) MG 11/13/2016 11/13/2016 ONCE&1054 NORMAL SALINE 1000CC IV BAG INJ 0.9 % (NS 1000CC IV BAG) ml 11/13/2016 11/14/2016 CONTINUOUSEVERY 0 Hour CYANOCBALAMIN VIAL INJ 1000 MCG/CC (VIT B12 VIAL) MCG 11/13/2016 11/13/2016 PRN Q4WK MEDROXYPROGESTERONE SYRINGE INJ 150 MG (DEPO-PROVERA SYRINGE) MG 11/13/2016 11/13/2016 ONCE&1328 NORMAL SALINE 250CC IV BAG INJ 0.9 % (NS 250CC IV BAG) ml 11/13/2016 11/13/2016 ONCE&1345 HYDROCODONE/APAP 7.5/325 TAB 0 (NEGRITO-TAB 7.5/325) TAB 11/13/2016 11/28/2016 PRN Q4H ACETAMINOPHEN ORAL TABLET 325mg(Tylenol) MG 11/13/2016 11/23/2016 PRN EVERY 4 Hour D5 1/2 NS 1000CC IV BAG INJ 0 ml 11/20/2016 CONTINUOUSEVERY 0 Hour OXYCODONE 5MG/APAP 325MG TAB 0 (PERCOCET-5) TAB 11/13/2016 11/20/2016 PRN Q4H ONDANSETRON VIAL INJ 4 MG/2CC (ZOFRAN 2CC VIAL) MG 11/13/2016 11/20/2016 PRN Q4H MEPERIDINE SYRINGE INJ 75 MG/CC (DEMEROL SYRINGE) MG 11/13/2016 11/20/2016 PRN Q4H MEPERIDINE SYRINGE INJ 50 MG/CC (DEMEROL SYRINGE) MG 11/13/2016 11/20/2016 PRN Q4H Docusate sodium 100mg oral capsule (COLACE) MG 11/13/2016 11/23/2016 BID&0800,2000 INSULIN DETEMIR PEN INJ 100 UNITS/CC (LEVEMIR FLEXPEN) UNITS 11/13/2016 11/27/2016 QHS&2100 NORMAL SALINE 250CC IV BAG INJ 0.9 % (NS 250CC IV BAG) ml 11/13/2016 11/17/2016 Q12H - 11:59, 23:59&1159,2359 NORMAL SALINE 1000CC IV BAG INJ 0.9 % (NS 1000CC IV BAG) ml 11/14/2016 11/29/2016 CONTINUOUSEVERY 0 Hour NEOSTIGMINE VIAL INJ 1 MG/CC (BLOXIVERZ 10CC VIAL) MG 11/14/2016 11/29/2016 PRN Daily METOPROLOL XR TAB 25 MG (TOPROL XL) MG 11/14/2016 11/28/2016 Daily&0900 SERTRALINE TAB 50 MG (ZOLOFT) MG 12/13/2016 Daily&0900 CYANOCBALAMIN VIAL INJ 1000 MCG/CC (VIT B12 VIAL) MCG 11/14/2016 11/29/2016 PRN Q4WK FLUTICASONE NASAL INHALER MDI 50 MCG (FLONASE NOSE SPRAY) PUFF(S) 11/14/2016 11/28/2016 Daily&0900 GLIMEPIRIDE TAB 2 MG (AMARYL) MG 11/28/2016 Daily&0900 POLYETHYLENE GLYCOL POWDER UD PWD 0 (MIRALAX 17GM UNIT DOSE PAKS) gm 11/14/2016 11/28/2016 Daily&0900 LEVOTHYROXINE TAB 125 MCG (SYNTHROID) MCG 11/14/2016 11/28/2016 Daily&0900 FUROSEMIDE VIAL INJ 20 MG (LASIX VIAL) MG 11/14/2016 11/14/2016 ONCE&0925 INSULIN ASPART PEN INJ 100 UNITS/CC (NOVOLOG FLEXPEN) 11/14/2016 12/14/2016 ACHS&0630,1130,1630,2100 NORMAL SALINE 250CC IV BAG INJ 0.9 % (NS 250CC IV BAG) ml 11/14/2016 11/23/2016 Q24H&2359 ACETAMINOPHEN ORAL TABLET 325mg(Tylenol) MG 11/15/2016 11/25/2016 PRN EVERY 4 Hour D5 1/2 NS 1000CC IV BAG INJ 0 ml 11/22/2016 CONTINUOUSEVERY 0 Hour NORMAL SALINE 1000CC IV BAG INJ 0.9 % (NS 1000CC IV BAG) ml 11/15/2016 11/30/2016 CONTINUOUSEVERY 0 Hour OXYCODONE 5MG/APAP 325MG TAB 0 (PERCOCET-5) TAB 11/15/2016 11/22/2016 PRN Q4H ONDANSETRON VIAL INJ 4 MG/2CC (ZOFRAN 2CC VIAL) MG 11/15/2016 11/22/2016 PRN Q4H MEPERIDINE SYRINGE INJ 75 MG/CC (DEMEROL SYRINGE) MG 11/15/2016 11/22/2016 PRN Q4H INSULIN ASPART PEN INJ 100 UNITS/CC (NOVOLOG FLEXPEN) 11/16/2016 12/16/2016 ACHS&0630,1130,1630,2100 NORMAL SALINE 0.9 % (NS 100cc) (plain bag) ml 11/16/2016 11/25/2016 Q24H&2359 sodium polystyrene sulfonate (Kayexalate) oral suspension GMS 11/17/2016 11/17/2016 ONCE&0909 sodium polystyrene sulfonate (Kayexalate) oral suspension GMS 11/17/2016 11/17/2016 ONCE&1653 sodium polystyrene sulfonate (Kayexalate) oral suspension GMS 11/18/2016 11/19/2016 TID&1400,2200 sodium polystyrene sulfonate (Kayexalate) oral suspension GMS 11/18/2016 11/19/2016 TID&0800,2000 sodium polystyrene sulfonate (Kayexalate) oral suspension GMS 11/19/2016 11/19/2016 TID&1400,2200 HYDROCODONE/APAP 5MG/325MG TAB 5 MG/325MG (NEGRITO-TAB 5/325) TAB 08/13/2017 08/13/2017 ONCE&1259 NORMAL SALINE 250CC IV BAG INJ 0.9 % (NS 250CC IV BAG) ml 08/13/2017 08/13/2017 ONCE&1346 CALCIUM CARBONATE TAB 500 MG (TUMS) Dose(s) 08/13/2017 08/20/2017 PRN Q4H NORMAL SALINE 1000CC IV BAG INJ 0.9 % (NS 1000CC IV BAG) ml 08/13/2017 08/28/2017 CONTINUOUSEVERY 0 Hour HYDROCODONE/APAP 5MG/325MG TAB 5 MG/325MG (NEGRITO-TAB 5/325) TAB 08/13/2017 08/23/2017 PRN Q4H DIPHENHYDRAMINE CAP 25 MG (BENADRYL) Dose(s) 08/13/2017 08/20/2017 PRN Q6H ACETAMINOPHEN TAB 500 MG (TYLENOL) MG 08/13/2017 08/27/2017 PRN Q6H Docusate sodium 100mg oral capsule (COLACE) Dose(s) 08/13/2017 08/23/2017 BID&0800,2000 MILK OF IRINA JANSENQ Dose(s) 201608/20/2017 PRN BID SERTRALINE TAB 50 MG (ZOLOFT) Dose(s) 08/13/2017 08/19/2017 QHS&2100 FERROUS SULFATE TAB 325 MG (FEOSOL) MG 08/14/2017 08/20/2017 TID&0800,1400,2000 FLUTICASONE NASAL INHALER MDI 50 MCG (FLONASE NOSE SPRAY) Dose(s) 08/14/2017 08/20/2017 Daily&0900 GLIMEPIRIDE TAB 2 MG (AMARYL) Dose(s) 08/14/2017 08/20/2017 Daily&0900 POLYETHYLENE GLYCOL POWDER UD PWD (MIRALAX 17GM UNIT DOSE PAKS) Dose(s) 08/14/2017 08/20/2017 Daily&0900 METOPROLOL TAB 25 MG (LOPRESSOR) MG 08/14/2017 08/20/2017 Daily&0900 VITAMIN D-3 TAB 1000 UNITS (VITAMIN D-3) Dose( s) 08/14/2017 08/20/2017 Daily&0900 INSULIN ASPART PEN INJ 100 UNITS/CC (NOVOLOG FLEXPEN) UNITS 08/14/2017 09/12/2017 Daily&2100 LEVOTHYROXINE TAB 125 MCG (SYNTHROID) MCG 08/14/2017 08/20/2017 Daily&0900 PANTOPAZOLE VIAL INJ 40 MG (PROTONIX IV) MG 08/14/2017 08/20/2017 Daily&0900 INSULIN ASPART PEN INJ 100 UNITS/CC (NOVOLOG FLEXPEN) UNITS 08/14/2017 08/16/2017 Daily&1700 Problems Date Dx Coded Attending Type Code Diagnosis Diagnosed By 08/15/1350 ETHAN ORTEGA, BEATA Ot R26.9 UNSPECIFIED ABNORMALITIES OF GAIT AND MO 08/15/1350 ETHAN ORTEGA, BEATA Ot Z96.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 08/15/1610 OLGA ORTEGA, TUNG Aguilera Ot Z98.890 OTHER SPECIFIED POSTPROCEDURAL STATES 01/07/2013 Ot 244.9 01/07/2013 Ot 250.00 01/07/2013 Ot 272.4 01/07/2013 Ot 276.50 01/07/2013 Ot 276.7 01/07/2013 Ot 278.01 01/07/2013 Ot 285.1 01/07/2013 Ot 311 01/07/2013 Ot 401.9 01/07/2013 Ot 715.25 01/07/2013 Ot 755.63 01/07/2013 Ot 758.0 01/07/2013 Ot 788.5 01/07/2013 Ot 791.0 01/07/2013 Ot V85.41 03/03/2013 OMAIRA HAYS DO Ot 244.9 03/03/2013 OMAIRA HAYS DO Ot 250.00 03/03/2013 OMAIRA HAYS DO Ot 276.1 03/03/2013 OMAIRA HAYS DO Ot 276.7 03/03/2013 OMAIRA HAYS DO Ot 285.1 03/03/2013 OMAIRA HAYS DO Ot 403.90 03/03/2013 OMAIRA HAYS DO Ot 585.9 03/03/2013 OMAIRA HAYS DO Ot 758.0 03/03/2013 [facility] OMAIRA TRIPP Ot 996.44 03/03/2013 [facility] OMAIRA TRIPP Ot 996.47 03/03/2013 [facility] OMAIRA TRIPP Ot 996.66 03/03/2013 [facility] 998.32 03/03/2013 [facility] OMAIRA TRIPP Ot V43.64 11/03/2016 Chey Pascual 996.49 OTHER MECHANICAL COMPLICATION OF OTHER INTERNAL ORTHOPEDIC DEVICE, IMPLANT, AND GRAFT 11/03/2016 Chey Pascual T84.125A DISPLACEMENT OF INTERNAL FIXATION DEVICE OF LEFT FEMUR, INIT 11/06/2016 TUNG ESPINOZA 041.11 METHICILLIN SUSCEPTIBLE STAPHYLOCOCCUS AUREUS INFECTION IN CONDITIONS CLASSIFIED ELSEWHERE AND OF UNSPECIFIED SITE 11/06/2016 TUNG ESPINOZA 719.46 PAIN IN JOINT INVOLVING LOWER LEG 11/06/2016 TUNG ESPINOZA 758.0 DOWN' S SYNDROME 11/06/2016 TUNG ESPINOZA 996.49 OTHER MECHANICAL COMPLICATION OF OTHER INTERNAL ORTHOPEDIC DEVICE, IMPLANT, AND GRAFT 11/06/2016 TUNG ESPINOZA A49.01 METHICILLIN SUSCEP STAPH INFECTION, UNSP SITE 11/06/2016 TUNG ESPINOZA M25.562 PAIN IN LEFT KNEE 11/06/2016 TUNG ESPINOZA Q90.9 DOWN SYNDROME, UNSPECIFIED 11/06/2016 TUNG ESPINOZA T84.125A DISPLACEMENT OF INTERNAL FIXATION DEVICE OF LEFT FEMUR, INIT 11/12/2016 GABRIELLE WALLACE DO Ot E11.649 TYPE 2 DIABETES MELLITUS WITH HYPOGLYCEM 11/12/2016 GABRIELLE WALLACE DO K Ot Q90.9 DOWN SYNDROME, UNSPECIFIED 11/12/2016 GABRIELLE WALLACE DO K Ot T81.31XA DISRUPTION OF EXTERNAL OPERATION (SURGIC 11/12/2016 GABRIELLE WALLACE DO Ot Z79.4 ACID POLYMERIZATION OPERATOR (CURRENT) USE OF INSULIN 11/12/2016 [place] TRIPP GABRIELLE K Ot Z79.84 MCC (CURRENT) USE OF ORAL HYPOGLYC 11/12/2016 GABRIELLE WALLACE DO K Ot Z79.899 OTHER MCC (CURRENT) DRUG THERAPY 11/13/2016 TUNG ESPINOZA 244.9 11/13/2016 TUNG ESPINOZA 250.80 11/13/2016 OLGA, TUNG W 263.0 11/13/2016 OLGA, TUNG W 272.4 11/13/2016 OLGA, TUNG Villalba 285.21 11/13/2016 OLGA, TUNG W 401.0 11/13/2016 OLGA, TUNG Villalba B95.62 11/13/2016 OLGA, TUNG Villalba D63.1 ANEMIA IN CHRONIC KIDNEY DISEASE 11/13/2016 OLGA, TUNG Villalba E03.9 HYPOTHYROIDISM, UNSPECIFIED 11/13/2016 OLGA, TUNG Orly E11.649 11/13/2016 OLGA, TUNG Villalba E44.0 MODERATE PROTEIN-CALORIE MALNUTRITION 11/13/2016 OLGA, TUNG Orly E78.5 HYPERLIPIDEMIA, UNSPECIFIED 11/13/2016 OLGA, TUNG Villalba I10 ESSENTIAL (PRIMARY) HYPERTENSION 11/13/2016 OLGA, TUNG Villalba N18.4 11/13/2016 OLGA, TUNG Villalba T81.31XA 11/13/2016 OLGA, TUNG Villalba T81.4XXA 11/13/2016 GABRIELLE WALLACE DO Ot E11.649 TYPE 2 DIABETES MELLITUS WITH HYPOGLYCEM 11/13/2016 GABRIELLE WALLACE DO K Ot Q90.9 DOWN SYNDROME, UNSPECIFIED 11/13/2016 GABRIELLE WALLACE DO K Ot T81.31XA DISRUPTION OF EXTERNAL OPERATION (SURGIC 11/13/2016 GABRIELLE WALLACE DO K Ot Z79.4 MCC (CURRENT) USE OF INSULIN 11/13/2016 GABRIELLE WALLACE DO K Ot Z79.84 ACID POLYMERIZATION OPERATOR (CURRENT) USE OF ORAL HYPOGLYC 11/13/2016 GABRIELLE WALLACE DO Ot Z79.899 OTHER ACID POLYMERIZATION OPERATOR (CURRENT) DRUG THERAPY 11/18/2016 OLGA, TUNG Villalba 250.40 DIABETES MELLITUS WITH RENAL MANIFESTATIONS, TYPE II OR UNSPECIFIED TYPE, NOT STATED UNCONTROLLED 11/18/2016 OLGA, TUNG Villalba 276.7 HYPERPOTASSEMIA 11/18/2016 OLGA, TUNG Villalba 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ITH DIABETIC CHRONIC KIDNEY DISEASE 11/18/2016 OLGA, TUNG Villalba E87.5 HYPERKALEMIA 11/18/2016 OLGA, TUNG Villalba 041.12 METHICILLIN RESISTANT STAPHYLOCOCCUS AUREUS INFECTION IN CONDITIONS CLASSIFIED ELSEWHERE AND OF UNSPECIFIED SITE 11/18/2016 OLGA, TUNG W 250.40 DIABETES MELLITUS WITH RENAL MANIFESTATIONS, TYPE II OR UNSPECIFIED TYPE, NOT STATED UNCONTROLLED 11/18/2016 OLGA, TUNG W 276.7 HYPERPOTASSEMIA 11/18/2016 OLGA, TUNG W 585.4 CHRONIC KIDNEY DISEASE, STAGE IV (SEVERE) 11/18/2016 OLGA, TUNG W A41.02 SEPSIS DUE TO METHICILLIN RESISTANT STAPHYLOCOCCUS AUREUS 11/18/2016 OLGA, TUNG W 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ITH DIABETIC CHRONIC KIDNEY DISEASE 11/18/2016 OLGA, TUNG W E87.5 HYPERKALEMIA 11/18/2016 OLGA, TUNG W I12.9 HYPERTENSIVE CHRONIC KIDNEY DISEASE WITH STAGE 1 THROUGH STAGE 4 CHRONIC KIDNEY DISEASE, OR UNSPECIFIED CHRONIC KIDNEY DISEASE 11/19/2016 OLGA, TUNG W 041.12 METHICILLIN RESISTANT STAPHYLOCOCCUS AUREUS INFECTION IN CONDITIONS CLASSIFIED ELSEWHERE AND OF UNSPECIFIED SITE 11/19/2016 OLGA, TUNG Villalba 250.40 DIABETES MELLITUS WITH RENAL MANIFESTATIONS, TYPE II OR UNSPECIFIED TYPE, NOT STATED UNCONTROLLED 11/19/2016 OLGA, TUNG W 276.7 HYPERPOTASSEMIA 11/19/2016 OLGA, TUNG Villalba 585.4 CHRONIC KIDNEY DISEASE, STAGE IV (SEVERE) 11/19/2016 OLGA, TUNG Villalba A41.02 SEPSIS DUE TO METHICILLIN RESISTANT STAPHYLOCOCCUS AUREUS 11/19/2016 OLGA, TUNG W 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ITH DIABETIC CHRONIC KIDNEY DISEASE 11/19/2016 OLGA, TUNG W E87.5 HYPERKALEMIA 11/19/2016 OLGA, TUNG W I12.9 HYPERTENSIVE CHRONIC KIDNEY DISEASE WITH STAGE 1 THROUGH STAGE 4 CHRONIC KIDNEY DISEASE, OR UNSPECIFIED CHRONIC KIDNEY DISEASE 11/20/2016 OLGA, TUNG W 041.12 METHICILLIN RESISTANT STAPHYLOCOCCUS AUREUS INFECTION IN CONDITIONS CLASSIFIED ELSEWHERE AND OF UNSPECIFIED SITE 11/20/2016 OLGA, TUNG Villalba 250.40 DIABETES MELLITUS WITH RENAL MANIFESTATIONS, TYPE II OR UNSPECIFIED TYPE, NOT STATED UNCONTROLLED 11/20/2016 OLGA, TUNG 250.80 11/20/2016 OLGA, TUNG W 276.7 HYPERPOTASSEMIA 11/20/2016 OLGA, TUGN 285.21 11/20/2016 OLGA, TUNG Villalba 585.4 CHRONIC KIDNEY DISEASE, STAGE IV (SEVERE) 11/20/2016 OLGA, TUNG Villalba A41.02 SEPSIS DUE TO METHICILLIN RESISTANT STAPHYLOCOCCUS AUREUS 11/20/2016 OLGA, TUNG W 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ITH DIABETIC CHRONIC KIDNEY DISEASE 11/20/2016 TUNG ESPINOZA E87.5 HYPERKALEMIA 11/20/2016 TUNG ESPINOZA I12.9 HYPERTENSIVE CHRONIC KIDNEY DISEASE WITH STAGE 1 THROUGH STAGE 4 CHRONIC KIDNEY DISEASE, OR UNSPECIFIED CHRONIC KIDNEY DISEASE 11/28/2016 PIERRE PEOPLES MD, Ot Z51.81 ENCOUNTER FOR THERAPEUTIC DRUG LEVEL MON 11/28/2016 PIERRE PEOPLES MD Ot Z79.2 ACID POLYMERIZATION OPERATOR (CURRENT) USE OF ANTIBIOTICS 12/03/2016 PIERRE PEOPLES MD Ot M86.9 OSTEOMYELITIS, UNSPECIFIED 12/07/2016 PIERRE PEOPLES MD, Ot M86.9 OSTEOMYELITIS, UNSPECIFIED 12/18/2016 PIERRE PEOPLES MD, Ot Z51.81 ENCOUNTER FOR THERAPEUTIC DRUG LEVEL MON 12/18/2016 PIERRE PEOPLES MD, Ot Z79.2 MCC (CURRENT) USE OF ANTIBIOTICS 12/24/2016 PIERRE PEOPLES MD Ot M86.9 OSTEOMYELITIS, UNSPECIFIED 12/26/2016 PIERRE PEOPLES MD Ot M86.9 OSTEOMYELITIS, UNSPECIFIED 08/02/2017 YNES KURTZ MD Ot 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) THROMBOCYTHEMIA 08/02/2017 YNES KURTZ MD, Ot D63.1 ANEMIA IN CHRONIC KIDNEY DISEASE 08/02/2017 YNES KURTZ MD, Ot E03.9 HYPOTHYROIDISM, UNSPECIFIED 08/02/2017 YNES KURTZ MD, Ot 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 08/02/2017 YNES KURTZ MD, Ot E66.01 MORBID (SEVERE) OBESITY DUE TO EXCESS CA 08/02/2017 YNES KURTZ MD, Ot I12.9 HYPERTENSIVE CHRONIC KIDNEY DISEASE W ST 08/02/2017 YNES KURTZ MD Ot N18.4 CHRONIC KIDNEY DISEASE, STAGE 4 (SEVERE) 08/02/2017 YNES KURTZ MD, Ot Z68.41 BODY MASS INDEX (BMI) 40.0-44.9, ADULT 08/02/2017 YNES KURTZ MD, Ot Z79.899 OTHER ACID POLYMERIZATION OPERATOR (CURRENT) DRUG THERAPY 08/13/2017 TUNG ESPINOZA 585.9 CHRONIC KIDNEY DISEASE, UNSPECIFIED 08/13/2017 TUNG ESPINOZA 823.30 OPEN FRACTURE OF SHAFT OF TIBIA 08/13/2017 OLGA, TUNG Orly N19 UNSPECIFIED KIDNEY FAILURE 08/13/2017 OLGA, TUNG Villalba S82.20 UNSPECIFIED FRACTURE OF SHAFT OF TIBIA 08/13/2017 OLGA, TUNG Villalba S82.63 DISPLACED FRACTURE OF LATERAL MALLEOLUS OF UNSPECIFIED FIBULA 08/14/2017 OLGA, TUNG Villalba 585.9 CHRONIC KIDNEY DISEASE, UNSPECIFIED 08/14/2017 OLGA, TUNG Villalba 823.30 OPEN FRACTURE OF SHAFT OF TIBIA 08/14/2017 OLGA, TUNG W N19 UNSPECIFIED KIDNEY FAILURE 08/14/2017 OLGA, TUNG Villalba S82.20 UNSPECIFIED FRACTURE OF SHAFT OF TIBIA 08/14/2017 OLGA, TUNG Villalba S82.63 DISPLACED FRACTURE OF LATERAL MALLEOLUS OF UNSPECIFIED FIBULA 08/14/2017 OLGA, TUNG Villalba 585.9 CHRONIC KIDNEY DISEASE, UNSPECIFIED 08/14/2017 OLGA, TUNG Villalba 823.30 OPEN FRACTURE OF SHAFT OF TIBIA 08/14/2017 OLGA, TUNG Villalba N19 UNSPECIFIED KIDNEY FAILURE 08/14/2017 OLGA, TUNG Villalba S82.20 UNSPECIFIED FRACTURE OF SHAFT OF TIBIA 08/14/2017 OLAG, TUNG Villalba S82.63 DISPLACED FRACTURE OF LATERAL MALLEOLUS OF UNSPECIFIED FIBULA 08/14/2017 OLGA, TUNG Villalba 585.9 CHRONIC KIDNEY DISEASE, UNSPECIFIED 08/14/2017 OLGA, TUNG Villalba 823.30 OPEN FRACTURE OF SHAFT OF TIBIA 08/14/2017 OLGA, TUNG Villalba N19 UNSPECIFIED KIDNEY FAILURE 08/14/2017 OLGA, TUNG Villalba S82.20 UNSPECIFIED FRACTURE OF SHAFT OF TIBIA 08/14/2017 OLGA, TUNG Villalba S82.63 DISPLACED FRACTURE OF LATERAL MALLEOLUS OF UNSPECIFIED FIBULA 08/20/2017 TUNG ESPINOZA MD Ot Z98.890 OTHER SPECIFIED POSTPROCEDURAL STATES 09/02/2017 YNES KURTZ MD Ot 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) THROMBOCYTHEMIA 09/02/2017 YNES KURTZ MD, Ot D63.1 ANEMIA IN CHRONIC KIDNEY DISEASE 09/02/2017 YNES KURTZ MD Ot E03.9 HYPOTHYROIDISM, UNSPECIFIED 09/02/2017 YNES KURTZ MD Ot 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 09/02/2017 YNES KURTZ MD, Ot E66.01 MORBID (SEVERE) OBESITY DUE TO EXCESS CA 09/02/2017 YNES KURTZ MD, Ot I12.9 HYPERTENSIVE CHRONIC KIDNEY DISEASE W ST 09/02/2017 YNES KURTZ MD, Ot N18.4 CHRONIC KIDNEY DISEASE, STAGE 4 (SEVERE) 09/02/2017 YNES KURTZ MD Ot Z68.41 BODY MASS INDEX (BMI) 40.0-44.9, ADULT 09/02/2017 YNES KURTZ MD, Ot Z79.899 OTHER MCC (CURRENT) DRUG THERAPY 09/10/2017 TUNG ESPINOZA MD Ot Z98.890 OTHER SPECIFIED POSTPROCEDURAL STATES 09/27/2017 YNES KURTZ MD, Ot 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) THROMBOCYTHEMIA 09/27/2017 YNES KURTZ MD Ot D63.1 ANEMIA IN CHRONIC KIDNEY DISEASE 09/27/2017 YNES KURTZ MD Ot E03.9 HYPOTHYROIDISM, UNSPECIFIED 09/27/2017 YNES KURTZ MD Ot 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 09/27/2017 YNES KURTZ MD Ot E66.01 MORBID (SEVERE) OBESITY DUE TO EXCESS CA 09/27/2017 YNES KURTZ MD, Ot I12.9 HYPERTENSIVE CHRONIC KIDNEY DISEASE W ST 09/27/2017 YNES KURTZ MD, Ot N18.4 CHRONIC KIDNEY DISEASE, STAGE 4 (SEVERE) 09/27/2017 YNES KURTZ MD, Ot Z68.41 BODY MASS INDEX (BMI) 40.0-44.9, ADULT 09/27/2017 YNES KURTZ MD, Ot Z79.899 OTHER ACID POLYMERIZATION OPERATOR (CURRENT) DRUG THERAPY 10/14/2017 TUNG ESPINOZA MD, Ot Z98.890 OTHER SPECIFIED POSTPROCEDURAL STATES 10/30/2017 YNES KURTZ MD, Ot 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) THROMBOCYTHEMIA 10/30/2017 YNES KURTZ MD, Ot D63.1 ANEMIA IN CHRONIC KIDNEY DISEASE 10/30/2017 YNES KURTZ MD Ot E03.9 HYPOTHYROIDISM, UNSPECIFIED 10/30/2017 YNES KURTZ MD Ot 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 10/30/2017 YNES KURTZ MD Ot E66.01 MORBID (SEVERE) OBESITY DUE TO EXCESS CA 10/30/2017 YNES KURTZ MD Ot I12.9 HYPERTENSIVE CHRONIC KIDNEY DISEASE W ST 10/30/2017 YNES KURTZ MD, Ot N18.4 CHRONIC KIDNEY DISEASE, STAGE 4 (SEVERE) 10/30/2017 YNES KURTZ MD Ot Z68.41 BODY MASS INDEX (BMI) 40.0-44.9, ADULT 10/30/2017 YNES KURTZ MD Ot Z79.899 OTHER ACID POLYMERIZATION OPERATOR (CURRENT) DRUG THERAPY 10/31/2017 YNES KURTZ MD Ot 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) THROMBOCYTHEMIA 10/31/2017 YNES KURTZ MD Ot D63.1 ANEMIA IN CHRONIC KIDNEY DISEASE 10/31/2017 YNES KURTZ MD Ot E03.9 HYPOTHYROIDISM, UNSPECIFIED 10/31/2017 YNES KURTZ MD Ot 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 10/31/2017 YNES KURTZ MD Ot E66.01 MORBID (SEVERE) OBESITY DUE TO EXCESS CA 10/31/2017 YNES KURTZ MD Ot I12.9 HYPERTENSIVE CHRONIC KIDNEY DISEASE W ST 10/31/2017 YNES KURTZ MD Ot N18.4 CHRONIC KIDNEY DISEASE, STAGE 4 (SEVERE) 10/31/2017 YNES KURTZ MD Ot Z68.41 BODY MASS INDEX (BMI) 40.0-44.9, ADULT 10/31/2017 YNES KURTZ MD Ot Z79.899 OTHER MCC (CURRENT) DRUG THERAPY 10/31/2017 TUNG ESPINOZA MD Ot Z98.890 OTHER SPECIFIED POSTPROCEDURAL STATES 11/14/2017 YNES KURTZ MD, Ot 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) THROMBOCYTHEMIA 11/14/2017 YNES KURTZ MD Ot D63.1 ANEMIA IN CHRONIC KIDNEY DISEASE 11/14/2017 YNES KURTZ MD Ot E03.9 HYPOTHYROIDISM, UNSPECIFIED 11/14/2017 YNES KURTZ MD Ot 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 11/14/2017 YNES KURTZ MD Ot E66.01 MORBID (SEVERE) OBESITY DUE TO EXCESS CA 11/14/2017 YNES KURTZ MD Ot I12.9 HYPERTENSIVE CHRONIC KIDNEY DISEASE W ST 11/14/2017 YNES KURTZ MD Ot N18.4 CHRONIC KIDNEY DISEASE, STAGE 4 (SEVERE) 11/14/2017 YNES KURTZ MD Ot Z68.41 BODY MASS INDEX (BMI) 40.0-44.9, ADULT 11/14/2017 YNES KURTZ MD Ot Z79.899 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 ACID POLYMERIZATION OPERATOR (CURRENT) DRUG THERAPY 11/21/2017 YNES KURTZ MD, Ot 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) THROMBOCYTHEMIA 11/21/2017 YNES KURTZ MD Ot D63.1 ANEMIA IN CHRONIC KIDNEY DISEASE 11/21/2017 YNSE KURTZ MD Ot E03.9 HYPOTHYROIDISM, UNSPECIFIED 11/21/2017 YNES KURTZ MD Ot 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 11/21/2017 YNES KURTZ MD Ot E66.01 MORBID (SEVERE) OBESITY DUE TO EXCESS CA 11/21/2017 YNES KURTZ MD, Ot I12.9 HYPERTENSIVE CHRONIC KIDNEY DISEASE W ST 11/21/2017 YNES KURTZ MD Ot N18.4 CHRONIC KIDNEY DISEASE, STAGE 4 (SEVERE) 11/21/2017 YNES KURTZ MD Ot Z68.41 BODY MASS INDEX (BMI) 40.0-44.9, ADULT 11/21/2017 YNES KURTZ MD, Ot Z79.899 OTHER ACID POLYMERIZATION OPERATOR (CURRENT) DRUG THERAPY 01/08/2018 YNES KURTZ MD Ot 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) THROMBOCYTHEMIA 01/08/2018 YNES KURTZ MD Ot D63.1 ANEMIA IN CHRONIC KIDNEY DISEASE 01/08/2018 YNES KURTZ MD Ot E03.9 HYPOTHYROIDISM, UNSPECIFIED 01/08/2018 YNES KURTZ MD Ot 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 01/08/2018 YNES KURTZ MD Ot E66.01 MORBID (SEVERE) OBESITY DUE TO EXCESS CA 01/08/2018 YNES KURTZ MD Ot I12.9 HYPERTENSIVE CHRONIC KIDNEY DISEASE W ST 01/08/2018 YNES KURTZ MD Ot N18.4 CHRONIC KIDNEY DISEASE, STAGE 4 (SEVERE) 01/08/2018 YNES KURTZ MD Ot Z68.41 BODY MASS INDEX (BMI) 40.0-44.9, ADULT 01/08/2018 YNES KURTZ MD Ot Z79.899 OTHER [facility] (CURRENT) DRUG THERAPY 01/17/2018 YNES KURTZ MD Ot 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) THROMBOCYTHEMIA 01/17/2018 YNES KURTZ MD Ot D63.1 ANEMIA IN CHRONIC KIDNEY DISEASE 01/17/2018 YNES KURTZ MD Ot E03.9 HYPOTHYROIDISM, UNSPECIFIED 01/17/2018 YNES KURTZ MD Ot 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 01/17/2018 YNES KURTZ MD Ot E66.01 MORBID (SEVERE) OBESITY DUE TO EXCESS CA 01/17/2018 YNES KURTZ MD Ot I12.9 HYPERTENSIVE CHRONIC KIDNEY DISEASE W ST 01/17/2018 YNES KURTZ MD Ot N18.4 CHRONIC KIDNEY DISEASE, STAGE 4 (SEVERE) 01/17/2018 YNES KURTZ MD, Ot Z68.41 BODY MASS INDEX (BMI) 40.0-44.9, ADULT 01/17/2018 YNES KURTZ MD Ot Z79.899 OTHER ACID POLYMERIZATION OPERATOR (CURRENT) DRUG THERAPY 02/18/2018 YNES KURTZ MD, Ot 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) THROMBOCYTHEMIA 02/18/2018 YNES KURTZ MD Ot D63.1 ANEMIA IN CHRONIC KIDNEY DISEASE 02/18/2018 YNES KURTZ MD Ot E03.9 HYPOTHYROIDISM, UNSPECIFIED 02/18/2018 YNES KURTZ MD Ot 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 02/18/2018 YNES KURTZ MD Ot E66.01 MORBID (SEVERE) OBESITY DUE TO EXCESS CA 02/18/2018 YNES KURTZ MD Ot I12.9 HYPERTENSIVE CHRONIC KIDNEY DISEASE W ST 02/18/2018 YNES KURTZ MD Ot N18.4 CHRONIC KIDNEY DISEASE, STAGE 4 (SEVERE) 02/18/2018 YNES KURTZ MD Ot Z68.41 BODY MASS INDEX (BMI) 40.0-44.9, ADULT 02/18/2018 YNES KURTZ MD Ot Z79.899 OTHER [facility] (CURRENT) DRUG THERAPY 02/24/2018 YNES KURTZ MD Ot 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) THROMBOCYTHEMIA 02/24/2018 YNES KURTZ MD Ot D63.1 ANEMIA IN CHRONIC KIDNEY DISEASE 02/24/2018 YNES KURTZ MD Ot E03.9 HYPOTHYROIDISM, UNSPECIFIED 02/24/2018 YNES KURTZ MD Ot 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 02/24/2018 YNES KURTZ MD Ot E66.01 MORBID (SEVERE) OBESITY DUE TO EXCESS CA 02/24/2018 YNES KURTZ MD Ot I12.9 HYPERTENSIVE CHRONIC KIDNEY DISEASE W ST 02/24/2018 YNES KURTZ MD Ot N18.4 CHRONIC KIDNEY DISEASE, STAGE 4 (SEVERE) 02/24/2018 YNES KURTZ MD, Ot Z68.41 BODY MASS INDEX (BMI) 40.0-44.9, ADULT 02/24/2018 YNES KURTZ MD, Ot Z79.899 OTHER M[facility] (CURRENT) DRUG THERAPY 02/26/2018 YNES KURTZ MD, Ot 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) THROMBOCYTHEMIA 02/26/2018 YNES KURTZ MD Ot D63.1 ANEMIA IN CHRONIC KIDNEY DISEASE 02/26/2018 YNES KURTZ MD Ot E03.9 HYPOTHYROIDISM, UNSPECIFIED 02/26/2018 YNES KURTZ MD Ot 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 02/26/2018 YNES KURTZ MD Ot E66.01 MORBID (SEVERE) OBESITY DUE TO EXCESS CA 02/26/2018 YNES KURTZ MD, Ot I12.9 HYPERTENSIVE CHRONIC KIDNEY DISEASE W ST 02/26/2018 YNES KURTZ MD, Ot N18.4 CHRONIC KIDNEY DISEASE, STAGE 4 (SEVERE) 02/26/2018 YNES KURTZ MD, Ot Z68.41 BODY MASS INDEX (BMI) 40.0-44.9, ADULT 02/26/2018 YNES KURTZ MD, Ot Z79.899 OTHER ACID POLYMERIZATION OPERATOR (CURRENT) DRUG THERAPY 03/06/2018 BEATA LONG MD Ot R26.9 UNSPECIFIED ABNORMALITIES OF GAIT AND MO 03/06/2018 BEATA LONG MD Ot Z96.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 03/10/2018 BEATA LONG MD Ot R26.9 UNSPECIFIED ABNORMALITIES OF GAIT AND MO 03/10/2018 ETHAN ORTEGA, BEATA Ot Z96.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 03/21/2018 BEATA LONG MD Ot R26.9 UNSPECIFIED ABNORMALITIES OF GAIT AND MO 03/21/2018 BEATA LONG MD Ot Z96.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 04/07/2018 YNES KURTZ MD, Ot 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) THROMBOCYTHEMIA 04/07/2018 YNES KURTZ MD, Ot D63.1 ANEMIA IN CHRONIC KIDNEY DISEASE 04/07/2018 YNES KURTZ MD Ot E03.9 HYPOTHYROIDISM, UNSPECIFIED 04/07/2018 YNES KURTZ MD Ot 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 04/07/2018 YNES KURTZ MD Ot E66.01 MORBID (SEVERE) OBESITY DUE TO EXCESS CA 04/07/2018 YNES KURTZ MD Ot I12.9 HYPERTENSIVE CHRONIC KIDNEY DISEASE W ST 04/07/2018 YNES KURTZ MD Ot N18.4 CHRONIC KIDNEY DISEASE, STAGE 4 (SEVERE) 04/07/2018 YNES KURTZ MD Ot Z68.41 BODY MASS INDEX (BMI) 40.0-44.9, ADULT 04/07/2018 YNES KURTZ MD Ot Z79.899 OTHER [facility] (CURRENT) DRUG THERAPY 05/26/2018 YENS KURTZ MD, Ot 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) THROMBOCYTHEMIA 05/26/2018 YNES KURTZ MD Ot D63.1 ANEMIA IN CHRONIC KIDNEY DISEASE 05/26/2018 YNES KURTZ MD Ot E03.9 HYPOTHYROIDISM, UNSPECIFIED 05/26/2018 YNES KUTRZ MD Ot 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 05/26/2018 YNES KURTZ MD Ot E66.01 MORBID (SEVERE) OBESITY DUE TO EXCESS CA 05/26/2018 YNES KURTZ MD Ot I12.9 HYPERTENSIVE CHRONIC KIDNEY DISEASE W ST 05/26/2018 YNES KURTZ MD Ot N18.4 CHRONIC KIDNEY DISEASE, STAGE 4 (SEVERE) 05/26/2018 YNES KURTZ MD Ot Z68.41 BODY MASS INDEX (BMI) 40.0-44.9, ADULT 05/26/2018 YNES UKRTZ MD Ot Z79.899 OTHER ACID POLYMERIZATION OPERATOR (CURRENT) DRUG THERAPY 06/03/2018 YNES KURTZ MD Ot 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) THROMBOCYTHEMIA 06/03/2018 YNES KURTZ MD Ot D63.1 ANEMIA IN CHRONIC KIDNEY DISEASE 06/03/2018 YNES KURTZ MD Ot E03.9 HYPOTHYROIDISM, UNSPECIFIED 06/03/2018 YNES KURTZ MD Ot 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 06/03/2018 YNES KURTZ MD Ot E66.01 MORBID (SEVERE) OBESITY DUE TO EXCESS CA 06/03/2018 YNES KURTZ MD Ot I12.9 HYPERTENSIVE CHRONIC KIDNEY DISEASE W ST 06/03/2018 YNES KURTZ MD Ot N18.4 CHRONIC KIDNEY DISEASE, STAGE 4 (SEVERE) 06/03/2018 YNES KURTZ MD Ot Z68.41 BODY MASS INDEX (BMI) 40.0-44.9, ADULT 06/03/2018 YNES KURTZ MD Ot Z79.899 OTHER ACID POLYMERIZATION OPERATOR (CURRENT) DRUG THERAPY 06/04/2018 YNES KURTZ MD Ot 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) THROMBOCYTHEMIA 06/04/2018 YNES KURTZ MD Ot D63.1 ANEMIA IN CHRONIC KIDNEY DISEASE 06/04/2018 YNES KURTZ MD Ot E03.9 HYPOTHYROIDISM, UNSPECIFIED 06/04/2018 YNES KURTZ MD Ot 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 06/04/2018 YNES KURTZ MD Ot E66.01 MORBID (SEVERE) OBESITY DUE TO EXCESS CA 06/04/2018 YNES KURTZ MD Ot I12.9 HYPERTENSIVE CHRONIC KIDNEY DISEASE W ST 06/04/2018 YNES KURTZ MD Ot N18.4 CHRONIC KIDNEY DISEASE, STAGE 4 (SEVERE) 06/04/2018 YNES KURTZ MD Ot Z68.41 BODY MASS INDEX (BMI) 40.0-44.9, ADULT 06/04/2018 YNES KURTZ MD Ot Z79.899 OTHER [facility] (CURRENT) DRUG THERAPY 06/15/2018 YNES KURTZ MD Ot 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) THROMBOCYTHEMIA 06/15/2018 YNES KURTZ MD, Ot D63.1 ANEMIA IN CHRONIC KIDNEY DISEASE 06/15/2018 YNES KURTZ MD, Ot E03.9 HYPOTHYROIDISM, UNSPECIFIED 06/15/2018 YNES KURTZ MD, Ot 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 06/15/2018 YNES KURTZ MD, Ot E66.01 MORBID (SEVERE) OBESITY DUE TO EXCESS CA 06/15/2018 YNES KURTZ MD, Ot I12.9 HYPERTENSIVE CHRONIC KIDNEY DISEASE W ST 06/15/2018 YNES KURTZ MD, Ot N18.4 CHRONIC KIDNEY DISEASE, STAGE 4 (SEVERE) 06/15/2018 YNES KURTZ MD, Ot Z68.41 BODY MASS INDEX (BMI) 40.0-44.9, ADULT 06/15/2018 YNES KURTZ MD, Ot Z79.899 OTHER [facility] (CURRENT) DRUG THERAPY 06/29/2018 PIERRE PEOPLES 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 06/29/2018 PIERRE PEOPLES M66.0 RUPTURE OF POPLITEAL CYST 06/29/2018 PIERRE PEOPLES V13.59 PERSONAL HISTORY OF OTHER MUSCULOSKELETAL DISORDERS 06/29/2018 PIERRE PEOPLES Z87.39 PERSONAL HISTORY OF OTHER DISEASES OF THE MUSCULOSKELETAL SYSTEM AND CONNECTIVE TISSUE 06/29/2018 PIERRE PEOPLES 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 06/29/2018 PIERRE PEOPLES M66.0 RUPTURE OF POPLITEAL CYST 06/29/2018 PIERRE PEOPLES V13.59 PERSONAL HISTORY OF OTHER MUSCULOSKELETAL DISORDERS 06/29/2018 PIERRE PEOPLES Z87.39 PERSONAL HISTORY OF OTHER DISEASES OF THE MUSCULOSKELETAL SYSTEM AND CONNECTIVE TISSUE 08/26/2018 ETHAN ORTEGA, BEATA Ot E11.29 TYPE 2 DIABETES MELLITUS W OTH DIABETIC 08/28/2018 OMAIRA HAYS DO Ot V58.81 FIT/ADJ VASCULAR CATHETER 08/28/2018 OMAIRA HAYS DO Ot 733.82 NONUNION OF FRACTURE 08/28/2018 OMAIRA HAYS DO Ot 996.67 INFEC INFLAM REAC DUE OT INTRN ORTH D 08/28/2018 OMAIRA HAYS DO Ot 719.46 JOINT PAIN-L/LEG 08/28/2018 OMAIRA HAYS DO Ot 729.5 PAIN IN LIMB 08/28/2018 OMAIRA HAYS DO Ot 733.42 ASEPTIC NECROSIS FEMUR 08/28/2018 OMAIRA HAYS DO Ot 785.6 ENLARGEMENT LYMPH NODES 08/28/2018 PIERRE PEOPLES MD, Ot Z51.81 ENCOUNTER FOR THERAPEUTIC DRUG LEVEL MON 08/28/2018 PIERRE PEOPLES MD, Ot Z79.2 ACID POLYMERIZATION OPERATOR (CURRENT) USE OF ANTIBIOTICS 08/28/2018 PIERRE PEOPLES MD Ot M86.9 OSTEOMYELITIS, UNSPECIFIED 08/28/2018 PIERRE PEOPLES MD, Ot M86.9 OSTEOMYELITIS, UNSPECIFIED 08/28/2018 YNES KURTZ MD, Ot 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) THROMBOCYTHEMIA 08/28/2018 YNES KURTZ MD, Ot D63.1 ANEMIA IN CHRONIC KIDNEY DISEASE 08/28/2018 YNES KURTZ MD Ot E03.9 HYPOTHYROIDISM, UNSPECIFIED 08/28/2018 YNES KURTZ MD Ot 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 Results Test Result Range Other Culture - 10/15/16 09:45 FINAL CULTURE RESULTS No Growth 48 hours MEDIA PLATED Setup at 16:40 on 10/15/2016 EKG - 11/06/16 06:49 EKG Complete MRSA Screen - 11/06/16 06:49 FINAL CULTURE RESULTS MRSA POSITIVE Nasal Culture MEDIA PLATED Setup at 07:20 on 11/06/2016 Other Culture - 11/06/16 08:49 PRELIM CULTURE RESULTS Moderate Coag Positive Staph JOCELYN/ID to Follow MEDIA PLATED Setup at 09:59 on 11/06/2016 Sensi - 11/06/16 08:49 FINAL CULTURE RESULTS Staphylococcus aureus (Isolate 1) Ampicillin/Sulbactam <=8/4 Ampicillin 4 Amoxicillin/K Clavulanate <=4/2 Ceftriaxone <=8 Clindamycin >4 Cefoxitin Screen <=4 Ciprofloxacin >2 Daptomycin <=0.5 Erythromycin >4 Nitrofurantoin <=32 Gentamicin <=4 Gentamicin Synergy Screen N/R Inducible Clindamycin N/R Levofloxacin >4 Linezolid 4 Moxifloxacin >4 Oxacillin 0.5 Penicillin >8 Rifampin <=1 Streptomycin Synergy N/R Synercid <=0.5 Trimethoprim/ Sulfamethoxazole <=0.5/9.5 Tetracycline <=4 Vancomycin 1 Anaerobic Culture - 11/06/16 08:49 ANAEROBIC CULTURE FINAL REPORT RESULT 1 NO ANAEROBIC GROWTH IN 72 HOURS. Capillary blood glucose measurement by glucometer (mass/volume) - 11/12/16 00: 43 Capillary blood glucose measurement by glucometer (mass/volume) 44 mg/dL 70-110 Complete blood count (CBC) with automated white blood cell (WBC) differential - 11/12/16 00:55 Blood leukocytes automated count (number/volume) 6.9 10*3/uL 4.3-11.0 Blood erythrocytes automated count (number/volume) 3.08 10*6/uL 4.35-5.85 Venous blood hemoglobin measurement (mass/volume) 8.6 g/dL 11.5-16.0 Blood hematocrit (volume fraction) 28 % 35-52 Automated erythrocyte mean corpuscular volume 90 [foz_us] 80-99 Automated erythrocyte mean corpuscular hemoglobin (mass per erythrocyte) 28 pg 25-34 Automated erythrocyte mean corpuscular hemoglobin concentration measurement ( mass/volume) 31 g/dL 32-36 Automated erythrocyte distribution width ratio 15.7 % 10.0-14.5 Automated blood platelet count (count/volume) 600 10*3/uL 130-400 Automated blood platelet mean volume measurement 9.0 [foz_us] 7.4-10.4 Automated blood neutrophils/100 leukocytes 58 % 42-75 Automated blood lymphocytes/100 leukocytes 31 % 12-44 Blood monocytes/100 leukocytes 9 % 0-12 Automated blood eosinophils/100 leukocytes 1 % 0-10 Automated blood basophils/100 leukocytes 1 % 0-10 Blood neutrophils automated count (number/volume) 4.0 10*3 1.8-7.8 Blood lymphocytes automated count (number/volume) 2.2 10*3 1.0-4.0 Blood monocytes automated count (number/volume) 0.7 10*3 0.0-1.0 Automated eosinophil count 0.1 10*3/uL 0.0-0.3 Automated blood basophil count (count/volume) 0.0 10*3/uL 0.0-0.1 Comprehensive metabolic panel - 11/12/16 00:55 Serum or plasma sodium measurement (moles/volume) 142 mmol/L 135-145 Serum or plasma potassium measurement (moles/volume) 5.5 mmol/L 3.6-5.0 Serum or plasma chloride measurement (moles/volume) 111 mmol/L 98-107 Carbon dioxide 20 mmol/L 21-32 Serum or plasma anion gap determination (moles/volume) 11 mmol/L 5-14 Serum or plasma urea nitrogen measurement (mass/volume) 50 mg/dL 7-18 Serum or plasma creatinine measurement (mass/volume) 2.76 mg/dL 0.60-1.30 Serum or plasma urea nitrogen/creatinine mass ratio 18 NRG Serum or plasma creatinine measurement with calculation of estimated glomerular filtration rate 19 NRG Serum or plasma glucose measurement (mass/volume) 47 mg/dL 70-105 Serum or plasma calcium measurement (mass/volume) 8.5 mg/dL 8.5-10.1 Serum or plasma total bilirubin measurement (mass/volume) 0.2 mg/dL 0.1-1.0 Serum or plasma alkaline phosphatase measurement (enzymatic activity/volume) 77 U/L 40-136 Serum or plasma aspartate aminotransferase measurement (enzymatic activity/ volume) 21 U/L 5-34 Serum or plasma alanine aminotransferase measurement (enzymatic activity/volume ) 21 U/L 0-55 Serum or plasma protein measurement (mass/volume) 8.0 g/dL 6.4-8.2 Serum or plasma albumin measurement (mass/volume) 2.8 g/dL 3.2-4.5 Capillary blood glucose measurement by glucometer (mass/volume) - 11/12/16 01: 41 Capillary blood glucose measurement by glucometer (mass/volume) 141 mg/dL 70-110 Complete urinalysis with reflex to culture - 11/12/16 02:25 Urine color determination YELLOW NRG Urine clarity determination CLEAR NRG Urine pH measurement by test strip 6 5-9 Specific gravity of urine by test strip 1.015 1.016- 1.022 Urine protein assay by test strip, semi-quantitative 3+ NEGATIVE Urine glucose detection by automated test strip NEGATIVE NEGATIVE Erythrocytes detection in urine sediment by light microscopy 1+ NEGATIVE Urine ketones detection by automated test strip NEGATIVE NEGATIVE Urine nitrite detection by test strip NEGATIVE NEGATIVE Urine total bilirubin detection by test strip NEGATIVE NEGATIVE Urine urobilinogen measurement by automated test strip (mass/volume) NORMAL NORMAL Urine leukocyte esterase detection by dipstick 2+ NEGATIVE Automated urine sediment erythrocyte count by microscopy (number/high power field) NONE NRG Automated urine sediment leukocyte count by microscopy (number/high power field ) RARE NRG Bacteria detection in urine sediment by light microscopy NEGATIVE NRG Squamous epithelial cells detection in urine sediment by light microscopy RARE NRG Crystals detection in urine sediment by light microscopy NONE NRG Casts detection in urine sediment by light microscopy NONE NRG Mucus detection in urine sediment by light microscopy NEGATIVE NRG Complete urinalysis with reflex to culture NO NRG Capillary blood glucose measurement by glucometer (mass/volume) - 11/12/16 02: 54 Capillary blood glucose measurement by glucometer (mass/volume) 323 mg/dL 70-110 Other Culture - 11/13/16 10:07 PRELIM CULTURE RESULTS Moderate Coag Positive Staph JOCELYN/ID to follow MEDIA PLATED Setup at 10:36 on 11/13/2016 Sensi - 11/13/16 10:07 FINAL CULTURE RESULTS Methicillin Resistant Staphylococcus aureus ( Isolate 1) Ampicillin/Sulbactam <=8/4 Ampicillin 8 Amoxicillin/K Clavulanate >4/2 Ceftriaxone 32 Clindamycin >4 Cefoxitin Screen >4 Ciprofloxacin >2 Daptomycin <=0.5 Erythromycin >4 Nitrofurantoin <=32 Gentamicin <=4 Gentamicin Synergy Screen N/R Inducible Clindamycin N/R Levofloxacin >4 Linezolid 4 Moxifloxacin >4 Oxacillin >2 Penicillin 8 Rifampin <=1 Streptomycin Synergy N/R Synercid <=0.5 Trimethoprim/ Sulfamethoxazole <=0.5/9.5 Tetracycline <=4 Vancomycin 1 Anaerobic Culture - 11/13/16 10:07 ANAEROBIC CULTURE FINAL REPORT RESULT 1 NO ANAEROBIC GROWTH IN 72 HOURS. Comprehensive Metabolic Panel - 11/13/16 12:08 Albumin 2.5 g/dL 3.6-5.1 ALP 56 U/L 35-130 ALT 27 U/L 6-45 Anion Gap 13 6-14 AST 26 U/L 2-40 BUN 46 mg/dL 5-25 Calcium 8.3 mg/dL 8.3-10.4 Chloride 112 mmol/L 95-114 CO2 21 mEq/L 22-33 Creat 2.45 mg/dL 0.50-1.50 eGFR 21 mL/min/1.73m2 >59 Globulin 5.1 g/dL 2.3-3.5 Glucose 92 mg/dL 70-110 Osmo 302 280-295 Potassium 5.0 mmol/L 3.5-5.3 Sodium 141 mmol/L 134-148 TBil 0.2 mg/dL 0.2-1.2 TP 7.6 g/dL 6.0-8.3 Anaerobic Culture - 11/13/16 13:50 ANAEROBIC CULTURE FINAL REPORT RESULT 1 NO ANAEROBIC GROWTH IN 72 HOURS. Other Culture - 11/13/16 13:55 PRELIM CULTURE RESULTS Abundant Coag Positive Staph JOCELYN/ID to follow MEDIA PLATED Setup at 15:34 on 11/13/2016 Sensi - 11/13/16 13:55 FINAL CULTURE RESULTS Methicillin Resistant Staphylococcus aureus ( Isolate 1) Ampicillin/Sulbactam <=8/4 Ampicillin 8 Amoxicillin/K Clavulanate >4/2 Ceftriaxone 32 Clindamycin >4 Cefoxitin Screen >4 Ciprofloxacin >2 Daptomycin <=0.5 Erythromycin >4 Nitrofurantoin <=32 Gentamicin <=4 Gentamicin Synergy Screen N/R Inducible Clindamycin N/R Levofloxacin >4 Linezolid 2 Moxifloxacin >4 Oxacillin >2 Penicillin 8 Rifampin <=1 Streptomycin Synergy N/R Synercid <=0.5 Trimethoprim/ Sulfamethoxazole <=0.5/9.5 Tetracycline <=4 Vancomycin 1 Hemoglobin - 11/14/16 05:20 Hgb 7.1 g/dL 13.0-15.0 Vancomycin Trough - 11/14/16 10:22 Vanco Trough 24.3 ug/mL 10.0-20.0 Leukoreduced Packed RBC Unit Checkout - 11/14/16 13:39 LRPRBC Checkout Checked Out. Leukoreduced Packed RBC Unit Checkout - 11/14/16 21:05 LRPRBC Checkout Checked Out. HH - 11/15/16 02:20 Hct 29.0 % 36.0-46.0 Hgb 9.3 g/dL 13.0-15.0 CBC with Auto Diff - 11/15/16 07:11 Baso% 0.50 % 0.00-2.50 Eos 0.2 K/uL 0.0-0.7 Eos% 3.0 % 0.0-7.0 Hct 29.9 % 36.0-46.0 Hgb 9.4 g/dL 13.0-15.0 Lym 2.39 K/uL 0.60-3.40 Lym% 40.4 % 10.0-50.0 MCH 29.1 pg 27.0-31.0 MCHC 31.4 g/dL 32.0-36.0 MCV 92.6 fL 80.0-97.0 [place]% 10.3 % 0.0-12.0 MPV 9.8 fL 7.4-10.0 Ginny% 45.8 % 37.0-80.0 Plt 459 K/uL 150-400 RBC 3.23 M/uL 3.60-5.00 RDW 15.8 % 11.6-14.8 WBC 5.92 K/uL 5.00-10.00 Ginny 2.71 K/uL 2.00-6.90 [place] 0.6 K/uL 0.0-0.9 Baso 0.0 K/uL 0.0-0.2 Gram Stain - 11/15/16 09:30 GRAM STAIN Gram Positive Cocci in [id number] to surgery CULTURE SOURCE left knee Vancomycin Trough - 11/15/16 23:00 Vanco Trough 23.1 ug/mL 10.0-20.0 BMP - 11/16/16 06:02 Anion Gap 14 6-14 BUN 45 mg/dL 5-25 Calcium 7.9 mg/dL 8.3-10.4 Chloride 113 mmol/L 95-114 CO2 21 mEq/L 22-33 Creat 1.93 mg/dL 0.50-1.50 eGFR 28 mL/min/1.73m2 >59 Glucose 47 mg/dL 70-110 Osmo 301 280-295 Potassium 5.5 mmol/L 3.5-5.3 Sodium 142 mmol/L 134-148 Other Culture - 11/16/16 08:00 PRELIM CULTURE RESULTS No Growth 24 hours FINAL CULTURE RESULTS No Growth 48 hours MEDIA PLATED Setup at 13:13 on 11/16/2016 Vancomycin Trough - 11/16/16 23:00 Vanco Trough 25.5 ug/mL 10.0-20.0 CBC with Auto Diff - 11/17/16 07:00 Baso% 0.50 % 0.00-2.50 Eos 0.2 K/uL 0.0-0.7 Eos% 3.2 % 0.0-7.0 Hct 30.6 % 36.0-46.0 Hgb 9.7 g/dL 13.0-15.0 Lym 2.71 K/uL 0.60-3.40 Lym% 42.8 % 10.0-50.0 MCH 29.2 pg 27.0-31.0 MCHC 31.7 g/dL 32.0-36.0 MCV 92.2 fL 80.0-97.0 [place]% 7.4 % 0.0-12.0 MPV 9.1 fL 7.4-10.0 Ginny% 46.1 % 37.0-80.0 Plt 422 K/uL 150-400 RBC 3.32 M/uL 3.60-5.00 RDW 15.7 % 11.6-14.8 WBC 6.33 K/uL 5.00-10.00 Ginny 2.92 K/uL 2.00-6.90 [place] 0.5 K/uL 0.0-0.9 Baso 0.0 K/uL 0.0-0.2 BMP - 11/17/16 07:00 Anion Gap 14 6-14 BUN 49 mg/dL 5-25 Calcium 8.2 mg/dL 8.3-10.4 Chloride 113 mmol/L 95-114 CO2 20 mEq/L 22-33 Creat 2.17 mg/dL 0.50-1.50 eGFR 25 mL/min/1.73m2 >59 Glucose 129 mg/dL 70-110 Osmo 305 280-295 Potassium 6.2 mmol/L 3.5-5.3 Sodium 141 mmol/L 134-148 Potassium - 11/17/16 16:00 Potassium 5.6 mmol/L 3.5-5.3 Vancomycin Trough - 11/17/16 22:58 Vanco Trough 17.3 ug/mL 10.0-20.0 BMP - 11/18/16 07:00 Anion Gap 13 6-14 BUN 48 mg/dL 5-25 Calcium 8.2 mg/dL 8.3-10.4 Chloride 112 mmol/L 95-114 CO2 23 mEq/L 22-33 Creat 2.05 mg/dL 0.50-1.50 eGFR 26 mL/min/1.73m2 >59 Glucose 94 mg/dL 70-110 Osmo 305 280-295 Potassium 5.9 mmol/L 3.5-5.3 Sodium 142 mmol/L 134-148 BMP - 11/19/16 07:00 Anion Gap 14 6-14 BUN 48 mg/dL 5-25 Calcium 7.9 mg/dL 8.3-10.4 Chloride 112 mmol/L 95-114 CO2 23 mEq/L 22-33 Creat 2.02 mg/dL 0.50-1.50 eGFR 27 mL/min/1.73m2 >59 Glucose 83 mg/dL 70-110 Osmo 308 280-295 Potassium 4.5 mmol/L 3.5-5.3 Sodium 144 mmol/L 134-148 BMP - 11/20/16 07:00 Anion Gap 16 6-14 BUN 49 mg/dL 5-25 Calcium 8.2 mg/dL 8.3-10.4 Chloride 110 mmol/L 95-114 CO2 21 mEq/L 22-33 Creat 2.15 mg/dL 0.50-1.50 eGFR 25 mL/min/1.73m2 >59 Glucose 107 mg/dL 70-110 Osmo 306 280-295 Potassium 4.6 mmol/L 3.5-5.3 Sodium 142 mmol/L 134-148 Whole blood basic metabolic panel - 11/25/16 06:30 Serum or plasma sodium measurement (moles/volume) 143 mmol/L 135-145 Serum or plasma potassium measurement (moles/volume) 5.2 mmol/L 3.6-5.0 Serum or plasma chloride measurement (moles/volume) 114 mmol/L 98-107 Carbon dioxide 21 mmol/L 21-32 Serum or plasma anion gap determination (moles/volume) 8 mmol/L 5-14 Serum or plasma urea nitrogen measurement (mass/volume) 56 mg/dL 7-18 Serum or plasma creatinine measurement (mass/volume) 2.28 mg/dL 0.60-1.30 Serum or plasma urea nitrogen/creatinine mass ratio 25 NRG Serum or plasma creatinine measurement with calculation of estimated glomerular filtration rate 23 NRG Serum or plasma glucose measurement (mass/volume) 134 mg/dL 70-105 Serum or plasma calcium measurement (mass/volume) 8.2 mg/dL 8.5-10.1 Vancomycin trough - 11/25/16 06:30 Vancomycin trough 19.9 ug/mL 10.0-20.0 Whole blood basic metabolic panel - 12/01/16 08:43 Serum or plasma sodium measurement (moles/volume) 138 mmol/L 135-145 Serum or plasma potassium measurement (moles/volume) 5.2 mmol/L 3.6-5.0 Serum or plasma chloride measurement (moles/volume) 109 mmol/L 98-107 Carbon dioxide 22 mmol/L 21-32 Serum or plasma anion gap determination (moles/volume) 7 mmol/L 5-14 Serum or plasma urea nitrogen measurement (mass/volume) 57 mg/dL 7-18 Serum or plasma creatinine measurement (mass/volume) 2.12 mg/dL 0.60-1.30 Serum or plasma urea nitrogen/creatinine mass ratio 27 NRG Serum or plasma creatinine measurement with calculation of estimated glomerular filtration rate 25 NRG Serum or plasma glucose measurement (mass/volume) 208 mg/dL 70-105 Serum or plasma calcium measurement (mass/volume) 8.1 mg/dL 8.5-10.1 Vancomycin trough - 12/01/16 08:43 Vancomycin trough 17.7 ug/mL 10.0-20.0 Vancomycin trough - 12/02/16 07:20 Vancomycin trough 13.2 ug/mL 10.0-20.0 Renal Panel - 01/02/17 09:35 Albumin 3.0 g/dL 3.6-5.1 BUN 64 mg/dL 5-25 Calcium 8.3 mg/dL 8.3-10.4 Chloride 110 mmol/L 95-114 CO2 22 mEq/L 22-33 Creat 2.67 mg/dL 0.50-1.50 eGFR 19 mL/min/1.73m2 >59 Glucose 219 mg/dL 70-110 Phosphorus 5.7 mg/dL 2.5-4.8 Potassium 5.3 mmol/L 3.5-5.3 Sodium 140 mmol/L 134-148 Comprehensive Metabolic Panel - 08/13/17 13:13 Albumin 3.1 g/dL 3.6-5.1 ALP 57 U/L 35-130 ALT 16 U/L 6-45 Anion Gap 16 6-14 AST 17 U/L 2-40 BUN 73 mg/dL 5-25 Calcium 9.6 mg/dL 8.3-10.4 Chloride 107 mmol/L 95-114 CO2 21 mEq/L 22-33 Creat 4.27 mg/dL 0.50-1.50 eGFR 11 mL/min/1.73m2 >59 Globulin 5.1 g/dL 2.3-3.5 Glucose 321 mg/dL 70-110 Osmo 318 280-295 Potassium 4.6 mmol/L 3.5-5.3 Sodium 139 mmol/L 134-148 TBil 0.4 mg/dL 0.2-1.2 TP 8.2 g/dL 6.0-8.3 [facility] - 08/14/17 05:28 Anion Gap 14 6-14 BUN 63 mg/dL 5-25 Calcium 8.8 mg/dL 8.3-10.4 Chloride 112 mmol/L 95-114 CO2 22 mEq/L 22-33 Creat 3.85 mg/dL 0.50-1.50 eGFR 13 mL/min/1.73m2 >59 Glucose 89 mg/dL 70-110 Osmo 311 280-295 Potassium 4.7 mmol/L 3.5-5.3 Sodium 143 mmol/L 134-148 Gram Stain - 07/23/18 14:18 GRAM STAIN No WBCs or organisms seen. CULTURE SOURCE L [id number]\ Other Culture - 07/23/18 14:18 PRELIM CULTURE RESULTS No Growth 24 hours FINAL CULTURE RESULTS No Growth 48 hours MEDIA PLATED Setup at 14:29 on 07/23/2018 Encounters ACCT No. Visit Date/Time Discharge Status Pt. Type Provider Facility Loc./Unit Complaint [id number] 06/20/2018 11:00:00 06/20/2018 23:59:59 CLS Preadmit RICHELLE ORTEGA, PIERRE Jacinto [facility] CARD HEART MURMUR [id number] 06/03/2018 12:37:00 06/15/2018 00:01:00 DIS Outpatient YNES KURTZ MD [facility] ONC [id number] 05/20/2018 15:20:00 05/26/2018 00:01:00 DIS Outpatient YNES KURTZ MD [facility] ONC [id number] 03/21/2018 13:00:00 03/21/2018 13:51:00 DIS Outpatient BEATA LONG MD [facility] REHAB GAIT INSTABILITY; DECONDITIONING [id number] 02/11/2018 13:52:00 02/18/2018 00:01:00 DIS Outpatient YNES KURTZ MD [facility] ONC [id number] 09/23/2017 13:00:00 10/31/2017 16:11:00 DIS Outpatient TUNG ESPINOZA MD [facility] REHAB S/P L TIB/FIB FX [id number] 10/08/2017 13:43:00 10/30/2017 00:01:00 DIS Outpatient YNES KURTZ MD [facility] ONC [id number] 12/02/2016 07:51:00 12/02/2016 23:59:59 CLS Outpatient PIERRE PEOPLES MD [facility] M86.9, IV THERAPY [id number] 12/01/2016 09:09:00 12/01/2016 23:59:59 CLS Outpatient PIERRE PEOPLES MD [facility] OSTEOMYELITIS, UNSPECIFIED [id number] 11/25/2016 07:37:00 11/25/2016 23:59:59 CLS Outpatient PIERRE PEOPLES MD [facility] VANCO THERAPY [id number] 11/12/2016 00:40:00 11/12/2016 03:00:00 DIS Emergency GABRIELLE WALLACE DO [facility] ER GLUCOSE PROBLEMS [id number] 02/23/2014 09:47:00 02/23/2014 23:59:59 CLS Outpatient OMAIRA HAYS DO [facility] RAD LEFT HIP/FEMUR PAIN [id number] 07/28/2013 10:32:00 07/28/2013 23:59:59 CLS Outpatient OMAIRA HAYS DO [facility] RAD NON UNION FX,FEMORAL SHAFT FX,INFECTED HARDWARE [id number] 04/23/2013 14:48:00 04/23/2013 23:59:59 CLS Outpatient ELIZABETHTEROMAIRA REYEZ DO [facility] SDC DISCONT PICC LINE [id number] 02/20/2013 06:56:00 03/03/2013 14:10:00 DIS Inpatient SATTEROMAIAR REYEZ DO [facility] ICU [id number] 02/16/2013 11:14:00 02/24/2013 14:28:00 DIS Outpatient [id number] 02/17/2013 13:31:00 02/17/2013 23:59:59 CLS Outpatient [id number] 01/07/2013 15:05:00 01/16/2013 16:45:00 DIS Inpatient [id number] 08/28/2018 13:43:00 ACT Emergency LUIS ORTEGA, BLAKE Correa [facility] ER BLOOD CLOT IN L ARM [id number] 08/28/2018 12:45:00 ACT Outpatient BEATA LONG MD [facility] RAD CHRONIC KIDNEY DISEASE STAGE III [id number] 08/28/2018 11:58:00 ACT Outpatient JERARDO ORTEGA, YNES [facility] ONC [id number] 01/05/2013 11:12:00 Document Registration [id number] 07/23/2018 14:16:00 07/23/2018 23:59:00 DIS Outpatient TUNG ESPINOZA [id number] 06/29/2018 07:37:00 06/29/2018 23:59:00 DIS Outpatient PIERRE PEOPLES [id number] 11/15/2017 09:21:00 11/15/2017 23:59:00 DIS Outpatient TUNG ESPINOZA [id number] 10/04/2017 09:35:00 10/04/2017 23:59:00 DIS Outpatient TUNG ESPINOZA [id number] 08/30/2017 11:07:00 08/30/2017 23:59:00 DIS Outpatient OLGA, TUNG [id number] 08/21/2017 10:52:00 08/21/2017 23:59:00 DIS Outpatient OLGA, TUNG [id number] 08/13/2017 12:32:00 08/14/2017 11:30:00 DIS Outpatient OLGA, [facility] [id number] 08/13/2017 11:55:00 08/13/2017 23:59:00 DIS Outpatient PIERRE PEOPLES [id number] 01/02/2017 09:14:00 01/02/2017 23:59:00 DIS Outpatient OLGATUNG KERN [id number] 11/13/2016 00:00:00 11/20/2016 13:20:00 DIS Inpatient OLGA TUNG [id number] 11/06/2016 00:00:00 11/06/2016 15:45:00 DIS Outpatient OLGATUNG KERN [id number] 11/03/2016 11:05:00 11/03/2016 12:00:00 DIS Outpatient Ankur, Chey [id number] 10/31/2016 09:57:00 10/31/2016 23:59:00 DIS Outpatient TUNG ESPINOZA [id number] 10/15/2016 13:57:00 10/15/2016 23:59:00 DIS Outpatient RICHELLE PIERRE [id number] 11/13/2016 10:06:00 Document Registration [id number] 11/13/2016 10:02:12 Document Registration [id number] 11/06/2016 08:40:40 Document Registration
[2018-08-28 14:31] LABS: BASOPHILS # (AUTO) 0.1 10^3/uL (0.0-0.1); BASOPHILS % (AUTO) 2 % (0-10); EOSINOPHILS # (AUTO) 0.3 10^3/uL (0.0-0.3); EOSINOPHILS % (AUTO) 4 % (0-10); HEMATOCRIT 27 % (35-52); HEMOGLOBIN 8.2 G/DL (11.5-16.0); LYMPHOCYTES # (AUTO) 1.5 X 10^3 (1.0-4.0); LYMPHOCYTES % (AUTO) 24 % (12-44); MEAN CORPUSCULAR HEMOGLOBIN 30 PG (25-34); MEAN CORPUSCULAR HGB CONC 30 G/DL (32-36); MEAN CORPUSCULAR VOLUME 100 FL (80-99); MEAN PLATELET VOLUME 9.3 FL (7.4-10.4); MONOCYTES # (AUTO) 0.5 X 10^3 (0.0-1.0); MONOCYTES % (AUTO) 9 % (0-12); NEUTROPHILS # (AUTO) 3.9 X 10^3 (1.8-7.8); NEUTROPHILS % (AUTO) 62 % (42-75); PLATELET COUNT 545 10^3/uL (130-400); RED BLOOD COUNT 2.71 10^6/uL (4.35-5.85); RED CELL DISTRIBUTION WIDTH 18.8 % (10.0-14.5); WHITE BLOOD COUNT 6.3 10^3/uL (4.3-11.0)
--- NOTE | 2018-08-28 14:45 | ED Upper Extremity ---
General Chief Complaint: Upper Extremity Stated Complaint: BLOOD CLOT IN L ARM Nursing Triage Note: TO ED PER W/C FROM [facility] WAS SENT FROM [facility] WITH CLOT IN L ARM. IS GETTING IV ANTIBIOTICS FOR LEG INFECTION. Nursing Sepsis Screen: No Definite Risk Source: patient Exam Limitations: no limitations (BLAKE SMITH MD) History of Present Illness Date Seen by Provider: Aug 28, 2018 Time Seen by Provider: 14:01 Initial Comments Here with concerns of blood clot in the left arm. Patient was a ultrasound and had findings. Ultrasound contacted ordered provider which was the fryline attendant in [place]. She wondered patient sent to the ER for evaluation. Patient here now for evaluation. Apparently she had PICC line in the left arm and accidentally pulled that. Afterwards she had swelling at some point later and this caused the concerns for evaluation. She is on chronic antibiotics IV for right leg wound. Onset: last week Severity: moderate Pain/Injury Location: left arm Method of Injury: unknown Modifying Factors: Worse With Movement; Improves With Rest (BLAKE SMITH MD) Allergies and Home Medications Allergies Coded Allergies: cephalexin (Unverified Allergy, Mild, 04/22/09) Home Medications Acetaminophen 500 Mg Tablet, 1,000 MG PO Q6H PRN, (Reported) PRN PAIN/ ELEVATED TEMP TAKES 2 OF 500MG TABS EVERY 6 HOURS NEEDED Acetaminophen 325 Mg Tablet, 650 MG PO Q4hrs. PRN, (Reported) Aspirin 81 Mg Tablet.dr, 81 MG PO DAILY, (Reported) Cyanocobalamin 1,000 Mcg/Ml Vial, 1,000 MCG IM MONTHLY, (Reported) Docusate Sodium 100 Mg Capsule, 100 MG PO DAILY PRN, (Reported) PRN CONSTIPATION WHILE TAKING PAIN MEDS Enoxaparin Sodium 40 Mg/0.4 Ml Soln, 40 MG SC DAILY, (Reported) Lovenox 40mg sc daily; STOP on 03/16/13. Enoxaparin Sodium 80 Mg/0.8 Ml Syringe, 80 MG SQ DAILY Prescribed by: QUYEN CRONIN on 08/28/18 1510 Fluticasone Propionate 16 Gm Naspr, 1 SPRAY NSEACH HS, (Reported) Insulin Glargine,Hum.rec.anlog 300 Unit/3 Ml Insuln.pen, 24 UNITS SQ HS, ( Reported) Levothyroxine Sodium 112 Mcg Tablet, 112 MCG PO DAILY, (Reported) Lisinopril 5 Mg Tablet, 5 MG PO DAILY, (Reported) Loperamide Hcl 2 Mg Tablet, 0 PO UD PRN, (Reported) 2 CAPS INITIALLY, THEN 1 CAP AFTER EACH LOOSE STOOL. NOT TO EXCEED 8/24 HRS PRN PRN DIARRHEA Medroxyprogesterone Acet 150 Mg/1 Ml Disp.syrin, 150 MG IM EVERY 3 MONTHS, ( Reported) Metformin Hcl 1,000 Mg Tablet, 1,000 MG PO BID, (Reported) Oxycodone Hcl/Acetaminophen 1 Each Tablet, 1-2 TAB PO Q4HRS. PRN, (Reported) PERCOCET 5/325: 1-2 TABS P.O. Q4HRS.PRN PAIN. Polyethylene Glycol 17 Gm Pack, 17 GM PO DAILY @ 1999, (Reported) Sertraline Hcl 100 Mg Tab, 100 MG PO HS, (Reported) Simvastatin 20 Mg Tablet, 20 MG PO HS, (Reported) Warfarin Sodium 3 Mg Tablet, 3 MG PO DAILY Prescribed by: QUYEN CRONIN on 08/28/18 1510 Patient Home Medication List Home Medication List Reviewed: Yes (BLAKE SMITH MD) Review of Systems Constitutional: see HPI; No chills, No fever Respiratory: no symptoms reported Cardiovascular: no symptoms reported Musculoskeletal: see HPI, muscle pain, other (swelling of left arm) Skin: change in color (redness to the left arm); No lesions (BLAKE SMITH MD) Past Ixezaef-Nlbdaq-Dnqhxd Hx Past Med/Social Hx: Reviewed Nursing Past Med/Soc Hx (BLAKE SMITH MD) Patient Social History Alcohol Use: Denies Use Recreational Drug Use: No Smoking Status: Never a Smoker Recent Foreign Travel: No Contact w/Someone Who Travel: No Recent Infectious Disease Expo: No Recent Hopitalizations: Yes (HARDWARE REMOVAL FROM LEFT LEG) (BLAKE SMITH MD) Immunizations Up To Date Tetanus Booster (TDap): Less than 5yrs Date of Pneumonia Vaccine: Jun 15, 2011 Date of Influenza Vaccine: May 17, 2012 (BLAKE SMITH MD) Seasonal Allergies Seasonal Allergies: No (BLAKE SMITH MD) Past Medical History Surgeries: Yes Orthopedic Respiratory: No Cardiac: Yes Hypertension Neurological: Yes (DOWN'S SYNDROME; MR) Developmental Disorder Reproductive Disorders: No Renal Failure Gastrointestinal: No Musculoskeletal: Yes Arthritis Endocrine: Yes Diabetes, Insulin dep, Hypothyroidsim Cancer: No Psychosocial: Yes (DOWN'S ; DEVELOPMENTAL DISORDER) Integumentary: No Blood Disorders: Yes (CHRONIC ANEMIA--BASELINE 9-10, 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 oz. [id number]; BMI Method:Stated General Appearance: WD/WN, no apparent distress Neck: full range of motion, supple Cardiovascular: regular rate, rhythm, no murmur Respiratory: lungs clear, normal breath sounds Gastrointestinal: non tender, soft Elbow/Forearm: normal ROM, Left, soft tissue tenderness, swelling (swelling from shoulder to hand) Wrist: Yes normal ROM Hand: normal ROM Neurologic/Psychiatric: alert, oriented x 3 Skin: warm/dry, other (mild redness of the left arm) (BLAKE SMITH MD) Progress/Results/Core Measures Results/Orders Lab Results Laboratory Tests Test 08/28/18 14:23 Range/Units White Blood Count 6.3 4.3-11.0 10^3/uL Red Blood Count 2.71 L 4.35-5.85 10^6/uL Hemoglobin 8.2 L 11.5-16.0 G/DL Hematocrit 27 L 35-52 % Mean Corpuscular Volume 100 H 80-99 FL Mean Corpuscular Hemoglobin 30 25-34 PG Mean Corpuscular Hemoglobin Concent 30 L 32-36 G/DL Red Cell Distribution Width 18.8 H 10.0-14.5 % Platelet Count 545 H 130-400 10^3/uL Mean Platelet Volume 9.3 7.4-10.4 FL Neutrophils (%) (Auto) 62 42-75 % Lymphocytes (%) (Auto) 24 12-44 % Monocytes (%) (Auto) 9 0-12 % Eosinophils (%) (Auto) 4 0-10 % Basophils (%) (Auto) 2 0-10 % Neutrophils # (Auto) 3.9 1.8-7.8 X 10^3 Lymphocytes # (Auto) 1.5 1.0-4.0 X 10^3 Monocytes # (Auto) 0.5 0.0-1.0 X 10^3 Eosinophils # (Auto) 0.3 0.0-0.3 10^3/uL Basophils # (Auto) 0.1 0.0-0.1 10^3/uL Sodium Level 141 135-145 MMOL/L Potassium Level 5.2 H 3.6-5.0 MMOL/L Chloride Level 107 98-107 MMOL/L Carbon Dioxide Level 22 21-32 MMOL/L Anion Gap 12 5-14 MMOL/L Blood Urea Nitrogen 39 H 7-18 MG/DL Creatinine 3.83 H 0.60-1.30 MG/DL Estimat Glomerular Filtration Rate 13 BUN/Creatinine Ratio 10 Glucose Level 192 H 70-105 MG/DL Calcium Level 9.1 8.5-10.1 MG/DL Corrected Calcium 10.1 8.5-10.1 MG/DL Total Bilirubin 0.2 0.1-1.0 MG/DL Aspartate Amino Transf (AST/SGOT) 11 5-34 U/L Alanine Aminotransferase (ALT/SGPT) 12 0-55 U/L Alkaline Phosphatase 47 40-136 U/L Total Protein 8.0 6.4-8.2 GM/DL Albumin 2.7 L 3.2-4.5 GM/DL (QUYEN CRONIN APRN) My Orders Orders - QUYEN CRONIN APRN Cbc With Automated Diff (08/28/18 14:01) Comprehensive Metabolic Panel (08/28/18 14:01) (QUYEN CRONIN APRN) Vital Signs/I&O 08/28/18 13:51 Temp 98.0 Pulse 99 Resp 18 B/P (MAP) Pulse Ox 97 (QUYEN CRONIN APRN) Progress Progress Note : Progress Note Seen and evaluated. Labs ordered. Monitor patient. (BLAKE SMITH MD) Diagnostic Imaging Diagonstic Imaging: Ultrasound Comments NAME: LEONIDES KRISHNAN [facility] REC#: [id number] PT STATUS: REG CLI : 1970 PHYSICIAN: BEATA LONG MD ADMIT DATE: 08/28/18/RAD Signed Date of Exam: 08/28/18 US VENOUS UPPER EXT LT INDICATION: Left arm pain and swelling. History of PICC line Left arm venous Doppler study performed in the routine fashion with color flow Doppler and waveform analysis. The left internal jugular vein, left subclavian vein, and left axillary vein are patent and compressible. There is thrombus seen in the left brachial vein throughout the upper arm as well as in the basilic vein in the upper arm. Cephalic vein is patent. Visualized portions of the radial vein are patent. Ulnar vein could not be visualized. IMPRESSION: Evidence of thrombus in the left basilic vein in the upper arm as well as in the brachial vein. Remaining structures were patent. Dictated by: Dictated on workstation # [id number] Dict: 08/28/18 1404 Trans: 08/28/18 1414 Interpreted by: RIMA SHEARER MD Electronically signed by: RIMA SHEARER MD 08/28/18 1414 (BLAKE SMITH MD) Departure Communication (Admissions) Her weight-based Lovenox dose should be 85 mg once a day while initiating warfarin. I'll start the warfarin 3 mg daily. The new her oral anticoagulants are not indicated in the case of severe renal impairment. Based on the severe renal impairment her Lovenox dosage will be adjusted to 85 mg subcutaneously once per day. I discussed with patient's primary care provider Dr. Brothers. She agrees with this plan and will touch base with nephrology to ensure there are no other concerns. First dose of Lovenox to be given here prior to discharge. (QUYEN CRONIN APRN) Impression Primary Impression: Deep vein thrombosis (DVT) of left upper extremity Qualified Codes: I82.622 - Acute embolism and thrombosis of deep veins of left upper extremity Disposition: 01 HOME, SELF-CARE Condition: Stable Departure-Patient Inst. Decision time for Depature: 15:07 (QUYEN CRONIN APRN) Referrals: PIERRE BROTHERS MD (PCP) Primary Care Physician Patient Instructions: Deep Vein Thrombosis (Blood Clots in the Legs) Add. Discharge Instructions: 1. Take both the warfarin and the Lovenox as directed. Lovenox is daily and warfarin is daily. She will need to have blood drawn in 2 days which would be on Saturday for determination of how to adjust her warfarin dosing. All discharge instructions reviewed with patient and/or family. Voiced understanding. Scripts Warfarin Sodium (Warfarin Sodium) 3 Mg Tablet 3 MG PO DAILY, #10 TAB Prov: QUYEN CRONIN APRN 08/28/18 Enoxaparin Sodium (Lovenox) 80 Mg/0.8 Ml Syringe 80 MG SQ DAILY, #5 SYRINGE Prov: QUYEN CRONIN APRN 08/28/18 Copy Copies To 1: PIERRE BROTHERS MD, TIMOTHY D MD Aug 28, 2018 14:45 QUYEN CRONIN APRN Aug 28, 2018 15:11
[2018-08-28 14:55] LABS: ALBUMIN 2.7 GM/DL (3.2-4.5); BILIRUBIN,TOTAL 0.2 MG/DL (0.1-1.0); CALCIUM 9.1 MG/DL (8.5-10.1); CREATININE SERUM 3.83 MG/DL (0.60-1.30); POTASSIUM 5.2 MMOL/L (3.6-5.0)
[2018-08-28] MEDS ORDERED: WARF3TAB56 PO (15:10)
[2018-08-28] MEDS ORDERED: ENOX80DI12 SQ (15:10)
[2018-08-28] MEDS: ENOXAPARIN 80 MG/0.8 ML (LOVENOX) SYR SC ONE (15:41)
[2018-08-28 15:44] VITALS: BP 0/0
== END 2018-08-28 15:43 | disposition home or self-care (01) ==
LOC: EDUNIT# 13:43 → ER 13:43
DX: I82.622 Acute embolism and thrombosis of deep veins of left upper extremity (principal); I10 Essential (primary) hypertension; E11.9 Type 2 diabetes mellitus without complications; E03.9 Hypothyroidism, unspecified; Q90.9 Down syndrome, unspecified; Z95.9 Presence of cardiac and vascular implant and graft, unspecified; Z88.8 Allergy status to other drugs, medicaments and biological substances; Z79.82 Long term (current) use of aspirin; Z79.4 Long term (current) use of insulin; Z79.01 Long term (current) use of anticoagulants
CPT/HCPCS: 36415; 80053; 85025; 96372; 99282

== ENCOUNTER → 2018-08-28 | Outpatient (CLI) | payer MEDICAID, MEDICARE ==
[~2018-08-28] MED LIST changes: -DARBEPOETIN 40 MCG/ML (ARANESP) 1 ML VIAL SC SCH; +ENOX80DI12 SQ; +WARF3TAB56 PO
--- NOTE | 2018-08-28 14:10 | Diagnostic Imaging Report ---
INDICATION: Left arm pain and swelling. History of PICC line Left arm venous Doppler study performed in the routine fashion with color flow Doppler and waveform analysis. The left internal jugular vein, left subclavian vein, and left axillary vein are patent and compressible. There is thrombus seen in the left brachial vein throughout the upper arm as well as in the basilic vein in the upper arm. Cephalic vein is patent. Visualized portions of the radial vein are patent. Ulnar vein could not be visualized. IMPRESSION: Evidence of thrombus in the left basilic vein in the upper arm as well as in the brachial vein. Remaining structures were patent. Dictated by: Dictated on workstation # [id number]
== END ==
LOC: RAD 12:45
PROVIDERS: ATTEND Internal Medicine Nephrology
DX: I82.612 Acute embolism and thrombosis of superficial veins of left upper extremity (principal); I82.622 Acute embolism and thrombosis of deep veins of left upper extremity; E11.22 Type 2 diabetes mellitus with diabetic chronic kidney disease; I13.11 Hypertensive heart and chronic kidney disease without heart failure, with stage 5 chronic kidney disease, or end stage renal disease; D64.9 Anemia, unspecified; E87.5 Hyperkalemia; E78.5 Hyperlipidemia, unspecified; M86.9 Osteomyelitis, unspecified; E55.9 Vitamin D deficiency, unspecified; E87.2 Acidosis; N18.5 Chronic kidney disease, stage 5; T45.2X1A Poisoning by vitamins, accidental (unintentional), initial encounter; I77.0 Arteriovenous fistula, acquired; Z95.828 Presence of other vascular implants and grafts

== ENCOUNTER 2018-09-25 09:38 | Outpatient (RCR) | payer MEDICARE, MEDICAID ==
[2018-07-29 14:22] LABS: BASOPHILS % (AUTO) 1 % (0-10); EOSINOPHILS # (AUTO) 0.1 10^3/uL (0.0-0.3); EOSINOPHILS % (AUTO) 1 % (0-10); HEMATOCRIT 33 % (35-52); HEMOGLOBIN 10.2 G/DL (11.5-16.0); LYMPHOCYTES # (AUTO) 1.9 X 10^3 (1.0-4.0); LYMPHOCYTES % (AUTO) 28 % (12-44); MEAN CORPUSCULAR HEMOGLOBIN 30 PG (25-34); MEAN CORPUSCULAR HGB CONC 31 G/DL (32-36); MEAN CORPUSCULAR VOLUME 97 FL (80-99); MEAN PLATELET VOLUME 9.5 FL (7.4-10.4); MONOCYTES # (AUTO) 0.7 X 10^3 (0.0-1.0); MONOCYTES % (AUTO) 9 % (0-12); NEUTROPHILS # (AUTO) 4.2 X 10^3 (1.8-7.8); NEUTROPHILS % (AUTO) 61 % (42-75); PLATELET COUNT 456 10^3/uL (130-400); RED BLOOD COUNT 3.43 10^6/uL (4.35-5.85); RED CELL DISTRIBUTION WIDTH 13.8 % (10.0-14.5); WHITE BLOOD COUNT 6.9 10^3/uL (4.3-11.0)
[2018-07-29 14:43] LABS: ALBUMIN 3.3 GM/DL (3.2-4.5); BILIRUBIN,TOTAL 0.3 MG/DL (0.1-1.0); CALCIUM 10.4 MG/DL (8.5-10.1); CREATININE SERUM 4.11 MG/DL (0.60-1.30); POTASSIUM 4.4 MMOL/L (3.6-5.0); TOTAL PROTEIN 8.7 GM/DL (6.4-8.2)
[~2018-09-25 09:38] MED LIST changes: +DARBEPOETIN 40 MCG/ML (ARANESP) 1 ML VIAL SC SCH; +DARBEPOETIN 60 MCG/ML ARANESP (CANCER CTR) INJ SCH; +ENOX80DI12 SQ; +WARF3TAB56 PO
[2018-09-25 10:18] LABS: BASOPHILS # (AUTO) 0.1 10^3/uL (0.0-0.1); BASOPHILS % (AUTO) 1 % (0-10); EOSINOPHILS # (AUTO) 0.3 10^3/uL (0.0-0.3); EOSINOPHILS % (AUTO) 4 % (0-10); HEMATOCRIT 29 % (35-52); LYMPHOCYTES # (AUTO) 1.7 X 10^3 (1.0-4.0); LYMPHOCYTES % (AUTO) 25 % (12-44); MEAN CORPUSCULAR HEMOGLOBIN 31 PG (25-34); MEAN CORPUSCULAR HGB CONC 31 G/DL (32-36); MEAN CORPUSCULAR VOLUME 99 FL (80-99); MEAN PLATELET VOLUME 9.4 FL (7.4-10.4); MONOCYTES # (AUTO) 0.5 X 10^3 (0.0-1.0); MONOCYTES % (AUTO) 7 % (0-12); NEUTROPHILS # (AUTO) 4.3 X 10^3 (1.8-7.8); NEUTROPHILS % (AUTO) 63 % (42-75); PLATELET COUNT 492 10^3/uL (130-400); RED BLOOD COUNT 2.94 10^6/uL (4.35-5.85); WHITE BLOOD COUNT 6.9 10^3/uL (4.3-11.0)
[2018-09-25 10:38] LABS: ALBUMIN 3.1 GM/DL (3.2-4.5); BILIRUBIN,TOTAL 0.2 MG/DL (0.1-1.0); CALCIUM 9.1 MG/DL (8.5-10.1); CREATININE SERUM 4.15 MG/DL (0.60-1.30); POTASSIUM 5.6 MMOL/L (3.6-5.0); TOTAL PROTEIN 8.1 GM/DL (6.4-8.2)
== END 2018-09-29 | disposition home or self-care (01) ==
LOC: ONC 09:38
PROVIDERS: ATTEND Internal Medicine Hematology & Oncology
DX: N18.4 Chronic kidney disease, stage 4 (severe) (principal); D63.1 Anemia in chronic kidney disease; I12.9 Hypertensive chronic kidney disease with stage 1 through stage 4 chronic kidney disease, or unspecified chronic kidney disease; E11.22 Type 2 diabetes mellitus with diabetic chronic kidney disease; E03.9 Hypothyroidism, unspecified; D47.3 Essential (hemorrhagic) thrombocythemia; E66.01 Morbid (severe) obesity due to excess calories; Z68.41 Body mass index [BMI] 40.0-44.9, adult; Z79.899 Other long term (current) drug therapy
CPT/HCPCS: 36415; 80053; 82728; 83540; 85025; 96372

== ENCOUNTER → 2018-10-03 | Outpatient (CLI) | payer MEDICARE ==
[~2018-10-03] MED LIST changes: -DARBEPOETIN 40 MCG/ML (ARANESP) 1 ML VIAL SC SCH; -DARBEPOETIN 60 MCG/ML ARANESP (CANCER CTR) INJ SCH
--- NOTE | 2018-10-03 15:49 | Diagnostic Imaging Report ---
INDICATION: Chronic osteomyelitis and draining sinus. TIME OF EXAM: 2:45 p.m. COMPARISON: Correlation is made with prior study from 03/02/2013. FINDINGS: Frontal and lateral views of the left knee were obtained. There is a lateral plate and screws transfixing the distal femur. There is now interruption of the distal femur in the supracondylar location with a gap of approximately 1 cm. A cerclage wire encircles the proximal portion. This appears to be chronic. Hardware is intact. There are degenerative changes at the knee. There appears to be soft tissue swelling about the knee. The tibia and fibula themselves appear to be intact without bony destructive changes. No acute fracture is seen. IMPRESSION: Chronic appearing deformity to the distal femur, as described. No acute abnormality is seen. Dictated by: Dictated on workstation # [id number]
== END ==
LOC: RAD 13:59
PROVIDERS: ATTEND Surgery
DX: M86.462 Chronic osteomyelitis with draining sinus, left tibia and fibula (principal)
CPT/HCPCS: 73560

== ENCOUNTER → 2018-10-03 | Outpatient (CLI) | payer MEDICARE | LOC: WOUNDCARE 12:13 | PROVIDERS: ATTEND Surgery | DX: E11.622 Type 2 diabetes mellitus with other skin ulcer (principal); M86.462 Chronic osteomyelitis with draining sinus, left tibia and fibula; L97.224 Non-pressure chronic ulcer of left calf with necrosis of bone; Z90.2 Acquired absence of lung [part of]; N18.5 Chronic kidney disease, stage 5; R53.81 Other malaise; B95.62 Methicillin resistant Staphylococcus aureus infection as the cause of diseases classified elsewhere | CPT/HCPCS: 99213 ==

== ENCOUNTER → 2018-10-17 | Outpatient (CLI) | payer MEDICARE | LOC: WOUNDCARE 09:31 | PROVIDERS: ATTEND Surgery | DX: E11.622 Type 2 diabetes mellitus with other skin ulcer (principal); M86.462 Chronic osteomyelitis with draining sinus, left tibia and fibula; L97.224 Non-pressure chronic ulcer of left calf with necrosis of bone; Z90.2 Acquired absence of lung [part of]; N18.5 Chronic kidney disease, stage 5; R53.81 Other malaise; B95.62 Methicillin resistant Staphylococcus aureus infection as the cause of diseases classified elsewhere | CPT/HCPCS: 99213 ==

== ENCOUNTER → 2018-10-28 | Outpatient (CLI) | payer MEDICARE ==
--- NOTE | 2018-10-28 16:48 | Diagnostic Imaging Report ---
INDICATION: Wrist pain. COMPARISON: None. FINDINGS: Three radiographic views of the left wrist were obtained and demonstrate advanced erosive appearance to the scaphoid and lunate. As a result, there is significant collapse and narrowing of the first carpal row. There is no prior available for comparison. Other remaining carpals appear to be intact. Included portions of the distal radius are unremarkable. There may be an old ulnar styloid fracture. No unexpected radiopaque foreign bodies are seen. There is significant soft tissue swelling and calcified arterial sclerosis. IMPRESSION: 1. 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 Correlation with known underlying arthritides is recommended. Dictated by: Dictated on workstation # [id number]
--- NOTE | 2018-10-28 18:07 | Diagnostic Imaging Report ---
INDICATION: Pain. COMPARISON: No priors. FINDINGS: There is chronic volume loss, sclerosis, and fragmentation of the scaphoid and lunate. The distal carpal row is unremarkable. There is a well-corticated density which is probably an old avulsed fragment off the tip of the ulnar styloid as a chronic finding. No acute abnormality. IMPRESSION: Profound volume loss, sclerosis, fragmentation, and loss of the scapholunate bones with likely old ulnar tip avulsion. Distal carpal row appears unremarkable. Dictated on workstation # [id number]
== END ==
LOC: RAD 15:23
PROVIDERS: ATTEND Family Medicine
DX: M89.9 Disorder of bone, unspecified (principal); M85.88 Other specified disorders of bone density and structure, other site; M25.532 Pain in left wrist; M79.642 Pain in left hand
CPT/HCPCS: 73110; 73130

== ENCOUNTER 2018-11-01 00:55 | Emergency (ER) | payer MEDICARE, MEDICAID ==
[~2018-11-01] VITALS: Ht 157.5 cm; Wt 85.7 kg
--- OUTSIDE RECORDS SUMMARY | 2018-11-01 01:04 | XMS REPORT | Continuity of Care Document ---
Author Author [facility] Organization [facility] Address Unknown Phone Unavailable Allergies Active Description Code Type Severity Reaction Onset Reported/Identified Relationship to Patient Clinical Status Yes KEFLEX KEFLEX UNKNOWN Yes ЕЛЕНА INHIBITORS UNKNOWN OTHER Yes KEFLEX UNKNOWN DERMATOLOGICAL - HIV Yes cephalexin [id number] Drug Allergy Mild N/A 04/22/2009 Medications Medication [...] Dose(s) 08/13/2017 08/23/2017 BID&0800,2000 MILK OF IRINA LIQ Dose(s) 201608/20/2017 PRN BID SERTRALINE TAB 50 [...] 03/03/2013 OMAIRA HAYS DO Ot 758.0 03/03/2013 [facility] OMAIRA TRIPP Ot 996.44 03/03[facility]2013 [facility] Ot 996.47 03/03/2013 [facility] Ot 996.66 03/03/2013 [facility] Ot 998.32 03/03/2013 [facility] Ot V43.64 11/03/2016 Chey Pascual 996.49 OTHER [...] MELLITUS WITH HYPOGLYCEM 11/12/2016 GABRIELLE WALLACE DO Ot Q90.9 DOWN SYNDROME, UNSPECIFIED 11/12/2016 GABRIELLE WALLACE DO Ot T81.31XA DISRUPTION OF EXTERNAL OPERATION (SURGIC 11/12/2016 GABRIELLE WALLACE DO Ot Z79.4 SUPERINTENDENT METERS (CURRENT) USE OF INSULIN 11/12/2016 GABRIELLE WALLACE DO Ot Z79.84 USP (CURRENT) USE OF ORAL HYPOGLYC 11/12/2016 GABRIELLE WALLACE DO K Ot Z79.899 OTHER USP (CURRENT) DRUG THERAPY 11/13/2016 TUNG ESPINOZA 244.9 11/13/2016 TUNG ESPINOZA 250.80 11/13/2016 OLGA, TUNG W 263.0 11/13/2016 OLGA, TUNG W 272.4 11/13/2016 OLGA, TUNG W 285.21 11/13/2016 OLGA, TUNG W 401.0 11/13/2016 OLGA, TUNG Villalba B95.62 11/13/2016 OLGA, TUNG Villalba D63.1 ANEMIA IN CHRONIC KIDNEY DISEASE 11/13/2016 OLGA, TUNG Villalba E03.9 HYPOTHYROIDISM, UNSPECIFIED 11/13/2016 OLGA, TUNG Orly E11.649 11/13/2016 OLAG, TUNG Villalba E44.0 MODERATE PROTEIN-CALORIE MALNUTRITION 11/13/2016 OLGA, TUNG Orly E78.5 HYPERLIPIDEMIA, UNSPECIFIED 11/13/2016 OLGA, TUNG Villalba I10 ESSENTIAL (PRIMARY) HYPERTENSION 11/13/2016 OLGA, TUNG Villalba N18.4 11/13/2016 OLGA, TUNG Villalba T81.31XA 11/13/2016 OLGA, TUNG Villalba T81.4XXA 11/13/2016 GABRIELLE WALLACE DO Ot E11.649 TYPE 2 DIABETES MELLITUS WITH HYPOGLYCEM 11/13/2016 GABRIELLE WALLACE DO K Ot Q90.9 DOWN SYNDROME, UNSPECIFIED 11/13/2016 SUDHIR WALLACE DOA K Ot T81.31XA DISRUPTION OF EXTERNAL OPERATION (SURGIC 11/13/2016 SUDHIR WALLACE DOA K Ot Z79.4 SUPERINTENDENT METERS (CURRENT) USE OF INSULIN 11/13/2016 MADISON TRIPP GABRIELLE K Ot Z79.84 SUPERINTENDENT METERS (CURRENT) USE OF ORAL HYPOGLYC 11/13/2016 GABRIELLE WALLACE DO K Ot Z79.899 OTHER SUPERINTENDENT METERS (CURRENT) DRUG THERAPY 11/18/2016 OLGA, TUNG Villalba [...] AND OF UNSPECIFIED SITE 11/18/2016 OLGA, TUNG Villalba 250.40 DIABETES MELLITUS [...] TYPE, NOT STATED UNCONTROLLED 11/19/2016 OLGA, TUNG Villalba 276.7 HYPERPOTASSEMIA 11/19/2016 OLGA, TUNG Villalba 585.4 CHRONIC KIDNEY DISEASE, STAGE IV (SEVERE) 11/19/2016 OLGA, TUNG Villalba A41.02 SEPSIS DUE TO METHICILLIN RESISTANT STAPHYLOCOCCUS AUREUS 11/19/2016 OLGA, TUNG W 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ITH DIABETIC CHRONIC KIDNEY DISEASE 11/19/2016 OLGA, TUNG Villalba E87.5 HYPERKALEMIA 11/19/2016 OLGA, TUNG W I12.9 [...] 11/20/2016 OLGA, TUNG 250.80 11/20/2016 OLGA, TUNG Villalba 276.7 HYPERPOTASSEMIA 11/20/2016 OLGA, TUNG 285.21 11/20/2016 OLGA, TUNG Villalba 585.4 CHRONIC KIDNEY DISEASE, STAGE IV (SEVERE) 11/20/2016 OLGA, TUNG Villalba A41.02 SEPSIS DUE TO METHICILLIN RESISTANT STAPHYLOCOCCUS AUREUS 11/20/2016 OLGA, TUNG Villalba 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ITH DIABETIC CHRONIC KIDNEY DISEASE 11/20/2016 TUNG ESPINOZA E87.5 HYPERKALEMIA 11/20/2016 TUNG ESPINOZA I12.9 HYPERTENSIVE CHRONIC KIDNEY DISEASE WITH STAGE 1 THROUGH STAGE 4 CHRONIC KIDNEY DISEASE, OR UNSPECIFIED CHRONIC KIDNEY DISEASE 11/28/2016 PIERRE PEOPLES MD, Ot Z51.81 ENCOUNTER FOR THERAPEUTIC DRUG LEVEL MON 11/28/2016 PIERRE PEOPLES MD Ot Z79.2 SUPERINTENDENT METERS (CURRENT) USE OF ANTIBIOTICS 12/03/2016 PIERRE PEOPLES MD Ot M86.9 OSTEOMYELITIS, UNSPECIFIED 12/07/2016 PIERRE PEOPLES MD, Ot M86.9 OSTEOMYELITIS, UNSPECIFIED 12/18/2016 PIERRE PEOPLES MD, Ot Z51.81 ENCOUNTER FOR THERAPEUTIC DRUG LEVEL MON 12/18/2016 PIERRE PEOPLES MD, Ot Z79.2 SUPERINTENDENT METERS (CURRENT) USE OF ANTIBIOTICS 12/24/2016 PIERRE PEOPLES MD Ot M86.9 OSTEOMYELITIS, UNSPECIFIED 12/26/2016 PIERRE PEOPLES MD, Ot M86.9 OSTEOMYELITIS, UNSPECIFIED 08/02/2017 YNES KURTZ MD Ot 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) THROMBOCYTHEMIA 08/02/2017 YNES KURTZ MD, Ot D63.1 ANEMIA IN CHRONIC KIDNEY DISEASE 08/02/2017 YNES KURTZ MD, Ot E03.9 HYPOTHYROIDISM, UNSPECIFIED 08/02/2017 YNES KURTZ MD Ot 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 08/02/2017 YNES KURTZ MD Ot E66.01 MORBID (SEVERE) OBESITY DUE TO EXCESS CA 08/02/2017 YNES KURTZ MD Ot I12.9 HYPERTENSIVE CHRONIC KIDNEY DISEASE W ST 08/02/2017 YNES KURTZ MD Ot N18.4 CHRONIC KIDNEY DISEASE, STAGE 4 (SEVERE) 08/02/2017 YNES KURTZ MD, Ot Z68.41 BODY MASS INDEX (BMI) 40.0-44.9, ADULT 08/02/2017 YNES KURTZ MD, Ot Z79.899 OTHER USP (CURRENT) DRUG THERAPY 08/13/2017 TUNG ESPINOZA 585.9 CHRONIC KIDNEY DISEASE, UNSPECIFIED 08/13/2017 TUNG ESPINOZA 823.30 OPEN FRACTURE OF SHAFT OF TIBIA 08/13/2017 OLGA, TUNG Villalba N19 UNSPECIFIED KIDNEY FAILURE 08/13/2017 OLGA, TUNG [...] 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 09/02/2017 YNES KURTZ MD Ot E66.01 MORBID (SEVERE) OBESITY DUE TO EXCESS CA 09/02/2017 YNES KURTZ MD, Ot I12.9 HYPERTENSIVE CHRONIC KIDNEY DISEASE W ST 09/02/2017 YNES KURTZ MD, Ot N18.4 CHRONIC KIDNEY DISEASE, STAGE 4 (SEVERE) 09/02/2017 YNES KURTZ MD, Ot Z68.41 BODY MASS INDEX (BMI) 40.0-44.9, ADULT 09/02/2017 YNES KURTZ MD, Ot Z79.899 OTHER USP (CURRENT) DRUG THERAPY 09/10/2017 TUNG ESPINOZA MD, Ot Z98.890 OTHER SPECIFIED POSTPROCEDURAL STATES 09/27/2017 YNES KURTZ MD, Ot 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) THROMBOCYTHEMIA 09/27/2017 YNES KURTZ MD, Ot D63.1 ANEMIA IN CHRONIC KIDNEY DISEASE 09/27/2017 YNES KURTZ MD Ot E03.9 HYPOTHYROIDISM, UNSPECIFIED 09/27/2017 YNES KURTZ MD Ot 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 09/27/2017 YNES KURTZ MD, Ot E66.01 MORBID (SEVERE) OBESITY DUE TO EXCESS CA 09/27/2017 YNES KURTZ MD, Ot I12.9 HYPERTENSIVE CHRONIC KIDNEY DISEASE W ST 09/27/2017 YNES KURTZ MD, Ot N18.4 CHRONIC KIDNEY DISEASE, STAGE 4 (SEVERE) 09/27/2017 YNES KURTZ MD, Ot Z68.41 BODY MASS INDEX (BMI) 40.0-44.9, ADULT 09/27/2017 YNES KURTZ MD, Ot Z79.899 OTHER SUPERINTENDENT METERS (CURRENT) DRUG THERAPY 10/14/2017 TUNG ESPINOZA MD, Ot Z98.890 OTHER SPECIFIED POSTPROCEDURAL STATES 10/30/2017 YNES KURTZ MD, Ot 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) THROMBOCYTHEMIA 10/30/2017 YNES KURTZ MD, Ot D63.1 ANEMIA IN CHRONIC KIDNEY DISEASE 10/30/2017 YNES KURTZ MD Ot E03.9 HYPOTHYROIDISM, UNSPECIFIED 10/30/2017 YNES KURTZ MD Ot 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 10/30/2017 YNES KURTZ MD Ot E66.01 MORBID (SEVERE) OBESITY DUE TO EXCESS CA 10/30/2017 YNES KURTZ MD Ot I12.9 HYPERTENSIVE CHRONIC KIDNEY DISEASE W ST 10/30/2017 YNES KURTZ MD Ot N18.4 CHRONIC KIDNEY DISEASE, STAGE 4 (SEVERE) 10/30/2017 YNES KURTZ MD Ot Z68.41 BODY MASS INDEX (BMI) 40.0-44.9, ADULT 10/30/2017 YNES KURTZ MD, Ot Z79.899 OTHER SUPERINTENDENT METERS (CURRENT) DRUG THERAPY 10/31/2017 YNES KURTZ MD Ot 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) THROMBOCYTHEMIA 10/31/2017 YNES KURTZ MD Ot D63.1 ANEMIA IN CHRONIC KIDNEY DISEASE 10/31/2017 YNES KURTZ MD Ot E03.9 HYPOTHYROIDISM, UNSPECIFIED 10/31/2017 YNES KURTZ MD Ot 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 10/31/2017 YNES KURTZ MD Ot E66.01 MORBID (SEVERE) OBESITY DUE TO EXCESS CA 10/31/2017 YNES KURTZ MD Ot I12.9 HYPERTENSIVE CHRONIC KIDNEY DISEASE W ST 10/31/2017 YNES KURTZ MD Ot N18.4 CHRONIC KIDNEY DISEASE, STAGE 4 (SEVERE) 10/31/2017 YNES KURTZ MD Ot Z68.41 BODY MASS INDEX (BMI) 40.0-44.9, ADULT 10/31/2017 YNES KURTZ MD Ot Z79.899 OTHER USP (CURRENT) DRUG THERAPY 10/31/2017 TUNG ESPINOZA MD Ot Z98.890 OTHER SPECIFIED POSTPROCEDURAL STATES 11/14/2017 YNES KURTZ MD Ot 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) THROMBOCYTHEMIA 11/14/2017 YNES KURTZ MD Ot D63.1 ANEMIA IN CHRONIC KIDNEY DISEASE 11/14/2017 YNES KURTZ MD Ot E03.9 HYPOTHYROIDISM, UNSPECIFIED 11/14/2017 YNES KURTZ MD Ot 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 11/14/2017 YNES KURTZ MD Ot E66.01 MORBID (SEVERE) OBESITY DUE TO EXCESS CA 11/14/2017 YNES KURTZ MD Ot I12.9 HYPERTENSIVE CHRONIC KIDNEY DISEASE W ST 11/14/2017 YNES KURTZ MD Ot N18.4 CHRONIC KIDNEY DISEASE, STAGE 4 (SEVERE) 11/14/2017 YNES KURTZ MD Ot Z68.41 BODY MASS INDEX (BMI) 40.0-44.9, ADULT 11/14/2017 YNES KURTZ MD Ot Z79.899 OTHER USP (CURRENT) DRUG THERAPY 11/21/2017 YNES KURTZ MD Ot 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) THROMBOCYTHEMIA 11/21/2017 YNES KURTZ MD Ot D63.1 ANEMIA IN CHRONIC KIDNEY DISEASE 11/21/2017 YNES KURTZ MD Ot E03.9 HYPOTHYROIDISM, UNSPECIFIED 11/21/2017 YNES KURTZ MD Ot 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 11/21/2017 YNES KURTZ MD Ot E66.01 MORBID (SEVERE) OBESITY DUE TO EXCESS CA 11/21/2017 YNES KURTZ MD Ot I12.9 HYPERTENSIVE CHRONIC KIDNEY DISEASE W ST 11/21/2017 YNES KURTZ MD Ot N18.4 CHRONIC KIDNEY DISEASE, STAGE 4 (SEVERE) 11/21/2017 YNES KURTZ MD Ot Z68.41 BODY MASS INDEX (BMI) 40.0-44.9, ADULT 11/21/2017 YNES KURTZ MD, Ot Z79.899 OTHER USP (CURRENT) DRUG THERAPY 01/08/2018 YNES KURTZ MD Ot 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) THROMBOCYTHEMIA 01/08/2018 YNES KURTZ MD Ot D63.1 ANEMIA IN CHRONIC KIDNEY DISEASE 01/08/2018 YNES KURTZ MD Ot E03.9 HYPOTHYROIDISM, UNSPECIFIED 01/08/2018 YNES KURTZ MD Ot 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 01/08/2018 YNES KURTZ MD Ot E66.01 MORBID (SEVERE) OBESITY DUE TO EXCESS CA 01/08/2018 YNES KURTZ MD Ot I12.9 HYPERTENSIVE CHRONIC KIDNEY DISEASE W ST 01/08/2018 YNES KURTZ MD Ot N18.4 CHRONIC KIDNEY DISEASE, STAGE 4 (SEVERE) 01/08/2018 YNES KURTZ MD Ot Z68.41 BODY MASS INDEX (BMI) 40.0-44.9, ADULT 01/08/2018 YNES KURTZ MD Ot Z79.899 OTHER USP (CURRENT) DRUG THERAPY 01/17/2018 YNES KURTZ MD, Ot 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) THROMBOCYTHEMIA 01/17/2018 YNES KURTZ MD Ot D63.1 ANEMIA IN CHRONIC KIDNEY DISEASE 01/17/2018 YNES KURTZ MD, Ot E03.9 HYPOTHYROIDISM, UNSPECIFIED 01/17/2018 YNES KURTZ MD Ot 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 01/17/2018 YNES KURTZ MD Ot E66.01 MORBID (SEVERE) OBESITY DUE TO EXCESS CA 01/17/2018 YNES KURTZ MD Ot I12.9 HYPERTENSIVE CHRONIC KIDNEY DISEASE W ST 01/17/2018 YNES KURTZ MD Ot N18.4 CHRONIC KIDNEY DISEASE, STAGE 4 (SEVERE) 01/17/2018 YNES KURTZ MD, Ot Z68.41 BODY MASS INDEX (BMI) 40.0-44.9, ADULT 01/17/2018 YNES KURTZ MD, Ot Z79.899 OTHER USP (CURRENT) DRUG THERAPY 02/18/2018 YNES KURTZ MD, Ot 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) THROMBOCYTHEMIA 02/18/2018 YNES KURTZ MD Ot D63.1 ANEMIA IN CHRONIC KIDNEY DISEASE 02/18/2018 YNES KURTZ MD Ot E03.9 HYPOTHYROIDISM, UNSPECIFIED 02/18/2018 YNES KURTZ MD Ot 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 02/18/2018 YNES KURTZ MD Ot E66.01 MORBID (SEVERE) OBESITY DUE TO EXCESS CA 02/18/2018 YNES KURTZ MD Ot I12.9 HYPERTENSIVE CHRONIC KIDNEY DISEASE W ST 02/18/2018 YNES KURTZ MD Ot N18.4 CHRONIC KIDNEY DISEASE, STAGE 4 (SEVERE) 02/18/2018 YNES KURTZ MD, Ot Z68.41 BODY MASS INDEX (BMI) 40.0-44.9, ADULT 02/18/2018 YNES KURTZ MD, Ot Z79.899 OTHER SUPERINTENDENT METERS (CURRENT) DRUG THERAPY 02/24/2018 YNES KURTZ MD Ot 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) THROMBOCYTHEMIA 02/24/2018 YNES KURTZ MD Ot D63.1 ANEMIA IN CHRONIC KIDNEY DISEASE 02/24/2018 YNES KURTZ MD Ot E03.9 HYPOTHYROIDISM, UNSPECIFIED 02/24/2018 YNES KURTZ MD Ot 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 02/24/2018 YNES KURTZ MD Ot E66.01 MORBID (SEVERE) OBESITY DUE TO EXCESS CA 02/24/2018 YNES KURTZ MD Ot I12.9 HYPERTENSIVE CHRONIC KIDNEY DISEASE W ST 02/24/2018 YNES KURTZ MD Ot N18.4 CHRONIC KIDNEY DISEASE, STAGE 4 (SEVERE) 02/24/2018 YNES KURTZ MD Ot Z68.41 BODY MASS INDEX (BMI) 40.0-44.9, ADULT 02/24/2018 YNES KURTZ MD, Ot Z79.899 OTHER USP (CURRENT) DRUG THERAPY 02/26/2018 YNES KURTZ MD, Ot 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) THROMBOCYTHEMIA 02/26/2018 YNES KURTZ MD Ot D63.1 ANEMIA IN CHRONIC KIDNEY DISEASE 02/26/2018 YNES KURTZ MD Ot E03.9 HYPOTHYROIDISM, UNSPECIFIED 02/26/2018 YNES KURTZ MD Ot 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 02/26/2018 YNES KURTZ MD Ot E66.01 MORBID (SEVERE) OBESITY DUE TO EXCESS CA 02/26/2018 YNES KURTZ MD, Ot I12.9 HYPERTENSIVE CHRONIC KIDNEY DISEASE W ST 02/26/2018 YNES KURTZ MD, Ot N18.4 CHRONIC KIDNEY DISEASE, STAGE 4 (SEVERE) 02/26/2018 YNES KRUTZ MD, Ot Z68.41 BODY MASS INDEX (BMI) 40.0-44.9, ADULT 02/26/2018 YNES KURTZ MD, Ot Z79.899 OTHER USP (CURRENT) DRUG THERAPY 03/06/2018 BEATA LONG MD Ot R26.9 UNSPECIFIED ABNORMALITIES OF GAIT AND MO 03/06/2018 BEATA LONG MD Ot Z96.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 03/10/2018 BEATA LONG MD Ot R26.9 UNSPECIFIED ABNORMALITIES OF GAIT AND MO 03/10/2018 BEATA LONG MD Ot Z96.642 PRESENCE OF [...] 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 04/07/2018 YNES KURTZ MD Ot E66.01 MORBID (SEVERE) OBESITY DUE TO EXCESS CA 04/07/2018 YNES KURTZ MD Ot I12.9 HYPERTENSIVE CHRONIC KIDNEY DISEASE W ST 04/07/2018 YNES KURTZ MD Ot N18.4 CHRONIC KIDNEY DISEASE, STAGE 4 (SEVERE) 04/07/2018 YNES KURTZ MD Ot Z68.41 BODY MASS INDEX (BMI) 40.0-44.9, ADULT 04/07/2018 YNES KURTZ MD Ot Z79.899 OTHER SUPERINTENDENT METERS (CURRENT) DRUG THERAPY 05/26/2018 YNES KURTZ MD, Ot 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) THROMBOCYTHEMIA 05/26/2018 YNES KURTZ MD, Ot D63.1 ANEMIA IN CHRONIC KIDNEY DISEASE 05/26/2018 YNES KURTZ MD Ot E03.9 HYPOTHYROIDISM, UNSPECIFIED 05/26/2018 YNES KURTZ MD Ot 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 05/26/2018 YNES KURTZ MD Ot E66.01 MORBID (SEVERE) OBESITY DUE TO EXCESS CA 05/26/2018 YNES KURTZ MD Ot I12.9 HYPERTENSIVE CHRONIC KIDNEY DISEASE W ST 05/26/2018 YNES KURTZ MD Ot N18.4 CHRONIC KIDNEY DISEASE, STAGE 4 (SEVERE) 05/26/2018 YNES KURTZ MD Ot Z68.41 BODY MASS INDEX (BMI) 40.0-44.9, ADULT 05/26/2018 YNES KURTZ MD Ot Z79.899 OTHER USP (CURRENT) DRUG THERAPY 06/03/2018 YNES KURTZ MD, Ot 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) THROMBOCYTHEMIA 06/03/2018 YNES KURTZ MD Ot D63.1 ANEMIA IN CHRONIC KIDNEY DISEASE 06/03/2018 YNES KURTZ MD Ot E03.9 HYPOTHYROIDISM, UNSPECIFIED 06/03/2018 YNES KURTZ MD Ot 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 06/03/2018 YNES KURTZ MD Ot E66.01 MORBID (SEVERE) OBESITY DUE TO EXCESS CA 06/03/2018 YNES KURTZ MD Ot I12.9 HYPERTENSIVE CHRONIC KIDNEY DISEASE W ST 06/03/2018 YNES KURTZ MD Ot N18.4 CHRONIC KIDNEY DISEASE, STAGE 4 (SEVERE) 06/03/2018 YNES KURTZ MD Ot Z68.41 BODY MASS INDEX (BMI) 40.0-44.9, ADULT 06/03/2018 YNES KURTZ MD Ot Z79.899 OTHER SUPERINTENDENT METERS (CURRENT) DRUG THERAPY 06/04/2018 YNES KURTZ MD Ot 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) THROMBOCYTHEMIA 06/04/2018 YNES KURTZ MD Ot D63.1 ANEMIA IN CHRONIC KIDNEY DISEASE 06/04/2018 YNES KURTZ MD Ot E03.9 HYPOTHYROIDISM, UNSPECIFIED 06/04/2018 YNES KURTZ MD Ot 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 06/04/2018 YNES KURTZ MD Ot E66.01 MORBID (SEVERE) OBESITY DUE TO EXCESS CA 06/04/2018 YNES KURTZ MD Ot I12.9 HYPERTENSIVE CHRONIC KIDNEY DISEASE W ST 06/04/2018 YNES KURTZ MD Ot N18.4 CHRONIC KIDNEY DISEASE, STAGE 4 (SEVERE) 06/04/2018 YNES KURTZ MD Ot Z68.41 BODY MASS INDEX (BMI) 40.0-44.9, ADULT 06/04/2018 YNES KURTZ MD Ot Z79.899 OTHER SUPERINTENDENT METERS (CURRENT) DRUG THERAPY 06/15/2018 YNES KURTZ MD Ot 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) THROMBOCYTHEMIA 06/15/2018 YNES KURTZ MD, Ot D63.1 ANEMIA IN CHRONIC KIDNEY DISEASE 06/15/2018 YNES KURTZ MD, Ot E03.9 HYPOTHYROIDISM, UNSPECIFIED 06/15/2018 YNES KURTZ MD, Ot 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 06/15/2018 YNES KURTZ MD, Ot E66.01 MORBID (SEVERE) OBESITY DUE TO EXCESS CA 06/15/2018 YNES KURTZ MD, Ot I12.9 HYPERTENSIVE CHRONIC KIDNEY DISEASE W ST 06/15/2018 YNES KURTZ MD, Ot N18.4 CHRONIC KIDNEY DISEASE, STAGE 4 (SEVERE) 06/15/2018 YNES KURTZ MD, Ot Z68.41 BODY MASS INDEX (BMI) 40.0-44.9, ADULT 06/15/2018 YNES KURTZ MD, Ot Z79.899 OTHER SUPERINTENDENT METERS (CURRENT) DRUG THERAPY 06/29/2018 PIERRE PEOPLES 727.51 [...] HAYS DO Ot 719.46 JOINT PAIN-L/LEG 08/28/2018 SAÚL TRIPP, OMAIRA Moore Ot 729.5 PAIN IN LIMB 08/28/2018 SAÚL TRIPP OMAIRA Moore Ot 733.42 ASEPTIC NECROSIS FEMUR 08/28/2018 SAÚL TRIPP OMAIRA Moore Ot 785.6 ENLARGEMENT LYMPH NODES 08/28/2018 PIERRE PEOPLES MD, Ot Z51.81 ENCOUNTER FOR THERAPEUTIC DRUG LEVEL [facility] 08/28/2018 PIERRE PEOPLES MD, Ot Z79.2 SUPERINTENDENT METERS (CURRENT) USE OF ANTIBIOTICS 08/28/2018 PIERRE PEOPLES MD Ot M86.9 OSTEOMYELITIS, UNSPECIFIED 08/28/2018 PIERRE PEOPLES MD, Ot M86.9 OSTEOMYELITIS, UNSPECIFIED 08/28/2018 YNES KURTZ MD, Ot 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) THROMBOCYTHEMIA 08/28/2018 YNES KURTZ MD Ot D63.1 ANEMIA IN CHRONIC KIDNEY DISEASE 08/28/2018 YNES KURTZ MD Ot E03.9 HYPOTHYROIDISM, UNSPECIFIED 08/28/2018 YNES KURTZ MD Ot 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 08/28/2018 YNES KURTZ MD Ot E66.01 MORBID (SEVERE) OBESITY DUE TO EXCESS CA 08/28/2018 NYES KURTZ MD, Ot I12.9 HYPERTENSIVE CHRONIC KIDNEY DISEASE W ST 08/28/2018 YNES KURTZ MD, Ot N18.4 CHRONIC KIDNEY DISEASE, STAGE 4 (SEVERE) 08/28/2018 YNES KURTZ MD, Ot Z68.41 BODY MASS INDEX (BMI) 40.0-44.9, ADULT 08/28/2018 YNES KURTZ MD, Ot Z79.899 OTHER USP (CURRENT) DRUG THERAPY 08/28/2018 BEATA LONG MD Ot E11.29 TYPE 2 DIABETES MELLITUS W OTH DIABETIC 08/28/2018 ODETTE LONG MDINE Ot E11.29 TYPE 2 DIABETES MELLITUS W OTH DIABETIC 08/28/2018 BLAKE SMITH MD Ot D64.9 ANEMIA, UNSPECIFIED 08/28/2018 BLAKE SMITH MD Ot E03.9 HYPOTHYROIDISM, UNSPECIFIED 08/28/2018 BLAKE SMITH MD Ot 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 08/28/2018 BLAKE SMITH MD, Ot E55.9 VITAMIN D DEFICIENCY, UNSPECIFIED 08/28/2018 BLAKE SMITH MD, Ot E78.5 HYPERLIPIDEMIA, UNSPECIFIED 08/28/2018 BLAKE SMITH MD, Ot E87.2 ACIDOSIS 08/28/2018 BLAKE SMITH MD, Ot E87.5 HYPERKALEMIA 08/28/2018 BLAKE SMITH MD, Ot 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, W 08/28/2018 BLAKE SMITH MD, Ot 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, ACQUIRED 08/28/2018 BLAKE SMITH MD, Ot I82.612 ACUTE EMBOLISM AND THOMBOS OF SUPERFIC V 08/28/2018 BLAKE SMITH MD, Ot I82.622 ACUTE EMBOLISM AND THROMBOSIS OF DEEP VE 08/28/2018 BLAKE SMITH MD, Ot M86.9 OSTEOMYELITIS, UNSPECIFIED 08/28/2018 BLAKE SMITH MD Ot N18.5 CHRONIC KIDNEY DISEASE, STAGE 5 08/28/2018 BLAKE SMITH MD Ot Q90.9 DOWN SYNDROME, UNSPECIFIED 08/28/2018 BLAKE SMITH MD Ot T45.2X1A POISONING BY VITAMINS, ACCIDENTAL (UNINT 08/28/2018 BLAKE SMITH MD, Ot Z79.01 SUPERINTENDENT METERS (CURRENT) USE OF ANTICOAGULANT 08/28/2018 BLAKE SMITH MD Ot Z79.4 USP (CURRENT) USE OF INSULIN 08/28/2018 BLAKE SMITH MD Ot Z79.82 USP (CURRENT) USE OF ASPIRIN 08/28/2018 BLAKE SMITH MD Ot Z88.8 ALLERGY STATUS TO OT DRUG/MEDS/BIOL SUB 08/28/2018 BLAKE SMITH MD, Ot Z95.828 PRESENCE OF OTHER VASCULAR IMPLANTS AND 08/29/2018 BEATA LONG MD Ot D64.9 ANEMIA, UNSPECIFIED 08/29/2018 BEATA LONG MD Ot 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 08/29/2018 BEATA LONG MD Ot E55.9 VITAMIN D DEFICIENCY, UNSPECIFIED 08/29/2018 BEATA LONG MD Ot E78.5 HYPERLIPIDEMIA, UNSPECIFIED 08/29/2018 BEATA LONG MD Ot E87.2 ACIDOSIS 08/29/2018 BEATA LONG MD Ot E87.5 HYPERKALEMIA 08/29/2018 BEATA LONG MD Ot 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, W 08/29/2018 BEATA LONG MD Ot 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, ACQUIRED 08/29/2018 BEATA LONG MD Ot I82.612 ACUTE EMBOLISM AND THOMBOS OF SUPERFIC V 08/29/2018 BEATA LONG MD, Ot I82.622 ACUTE EMBOLISM AND THROMBOSIS OF DEEP VE 08/29/2018 BEATA LONG MD Ot M86.9 OSTEOMYELITIS, UNSPECIFIED 08/29/2018 BEATA LONG MD Ot N18.5 CHRONIC KIDNEY DISEASE, STAGE 5 08/29/2018 BEATA LONG MD Ot T45.2X1A POISONING BY VITAMINS, ACCIDENTAL (UNINT 08/29/2018 BEATA LONG MD Ot Z95.828 PRESENCE OF OTHER VASCULAR IMPLANTS AND 09/01/2018 BLAKE SMITH MD Ot E03.9 HYPOTHYROIDISM, UNSPECIFIED 09/01/2018 BLAKE SMITH MD Ot E11.9 TYPE 2 DIABETES MELLITUS WITHOUT COMPLIC 09/01/2018 BLAKE SMITH MD Ot I10 ESSENTIAL (PRIMARY) HYPERTENSION 09/01/2018 BLAKE SMITH MD Ot I82.622 ACUTE EMBOLISM AND THROMBOSIS OF DEEP VE 09/01/2018 BLAKE SMITH MD Ot Q90.9 DOWN SYNDROME, UNSPECIFIED 09/01/2018 BLAKE SMITH MD Ot Z79.01 USP (CURRENT) USE OF ANTICOAGULANT 09/01/2018 BLAKE SMITH MD Ot Z79.4 SUPERINTENDENT METERS (CURRENT) USE OF INSULIN 09/01/2018 BLAKE SMITH MD Ot Z79.82 SUPERINTENDENT METERS (CURRENT) USE OF ASPIRIN 09/01/2018 BLAKE SMITH MD Ot Z88.8 ALLERGY STATUS TO OTH DRUG/MEDS/BIOL SUB 09/01/2018 BLAKE SMITH MD Ot Z95.9 PRESENCE OF CARDIAC AND VASCULAR IMPLANT 09/03/2018 BEATA LONG MD Ot D64.9 ANEMIA, UNSPECIFIED 09/03/2018 BEATA LONG MD Ot 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 09/03/2018 BEATA LONG MD Ot E55.9 VITAMIN D DEFICIENCY, UNSPECIFIED 09/03/2018 BEATA LONG MD Ot E78.5 HYPERLIPIDEMIA, UNSPECIFIED 09/03/2018 BEATA LONG MD Ot E87.2 ACIDOSIS 09/03/2018 BEATA LONG MD, Ot E87.5 HYPERKALEMIA 09/03/2018 BEATA LONG MD Ot 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, W 09/03/2018 BEATA LONG MD Ot 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, ACQUIRED 09/03/2018 BEATA LONG MD Ot I82.612 ACUTE EMBOLISM AND THOMBOS OF SUPERFIC V 09/03/2018 BEATA LONG MD Ot I82.622 ACUTE EMBOLISM AND THROMBOSIS OF DEEP VE 09/03/2018 BEATA LONG MD Ot M86.9 OSTEOMYELITIS, UNSPECIFIED 09/03/2018 BEATA LONG MD Ot N18.5 CHRONIC KIDNEY DISEASE, STAGE 5 09/03/2018 BEATA LONG MD Ot T45.2X1A POISONING BY VITAMINS, ACCIDENTAL (UNINT 09/03/2018 BEATA LONG MD Ot Z95.828 PRESENCE OF OTHER VASCULAR IMPLANTS AND 09/03/2018 BLAKE SMITH MD Ot E03.9 HYPOTHYROIDISM, UNSPECIFIED 09/03/2018 BLAKE SMITH MD Ot E11.9 TYPE 2 DIABETES MELLITUS WITHOUT COMPLIC 09/03/2018 BLAKE SMITH MD Ot I10 ESSENTIAL (PRIMARY) HYPERTENSION 09/03/2018 BLAKE SMITH MD Ot I82.622 ACUTE EMBOLISM AND THROMBOSIS OF DEEP VE 09/03/2018 BLAKE SMITH MD Ot Q90.9 DOWN SYNDROME, UNSPECIFIED 09/03/2018 BLAKE SMITH MD, Ot Z79.01 SUPERINTENDENT METERS (CURRENT) USE OF ANTICOAGULANT 09/03/2018 BLAKE SMITH MD, Ot Z79.4 USP (CURRENT) USE OF INSULIN 09/03/2018 BLAKE SMITH MD, Ot Z79.82 SUPERINTENDENT METERS (CURRENT) USE OF ASPIRIN 09/03/2018 BLAKE SMITH MD, Ot Z88.8 ALLERGY STATUS TO OTH DRUG/MEDS/BIOL SUB 09/03/2018 BLAKE SMITH MD Ot Z95.9 PRESENCE OF CARDIAC AND VASCULAR IMPLANT 09/12/2018 BLAKE SMITH MD, Ot D64.9 ANEMIA, UNSPECIFIED 09/12/2018 BLAKE SMITH MD Ot E03.9 HYPOTHYROIDISM, UNSPECIFIED 09/12/2018 BLAKE SMITH MD Ot 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 09/12/2018 BLAKE SMITH MD Ot E55.9 VITAMIN D DEFICIENCY, UNSPECIFIED 09/12/2018 BLAKE SMITH MD Ot E78.5 HYPERLIPIDEMIA, UNSPECIFIED 09/12/2018 BLAKE SMITH MD Ot E87.2 ACIDOSIS 09/12/2018 BLAKE SMITH MD, Ot E87.5 HYPERKALEMIA 09/12/2018 BLAKE SMITH MD Ot 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, W 09/12/2018 BLAKE SMITH MD Ot 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, ACQUIRED 09/12/2018 BLAKE SMITH MD Ot I82.612 ACUTE EMBOLISM AND THOMBOS OF SUPERFIC V 09/12/2018 BLAKE SMITH MD Ot I82.622 ACUTE EMBOLISM AND THROMBOSIS OF DEEP VE 09/12/2018 BLAKE SMITH MD Ot M86.9 OSTEOMYELITIS, UNSPECIFIED 09/12/2018 BLAKE SMITH MD Ot N18.5 CHRONIC KIDNEY DISEASE, STAGE 5 09/12/2018 BLAKE SMITH MD Ot Q90.9 DOWN SYNDROME, UNSPECIFIED 09/12/2018 BLAKE SMITH MD Ot T45.2X1A POISONING BY VITAMINS, ACCIDENTAL (UNINT 09/12/2018 BLAKE SMITH MD Ot Z79.01 SUPERINTENDENT METERS (CURRENT) USE OF ANTICOAGULANT 09/12/2018 BLAKE SMITH MD, Ot Z79.4 SUPERINTENDENT METERS (CURRENT) USE OF INSULIN 09/12/2018 BLAKE SMITH MD, Ot Z79.82 SUPERINTENDENT METERS (CURRENT) USE OF ASPIRIN 09/12/2018 BLAKE SMITH MD, Ot Z88.8 ALLERGY STATUS TO OTH DRUG/MEDS/BIOL SUB 09/12/2018 BLAKE SMITH MD, Ot Z95.828 PRESENCE OF OTHER VASCULAR IMPLANTS AND 09/12/2018 YNES KURTZ MD, Ot 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) THROMBOCYTHEMIA 09/12/2018 YNES KURTZ MD, Ot D63.1 ANEMIA IN CHRONIC KIDNEY DISEASE 09/12/2018 YNES KURTZ MD, Ot E03.9 HYPOTHYROIDISM, UNSPECIFIED 09/12/2018 YNES KURTZ MD Ot 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 09/12/2018 YNES KURTZ MD, Ot E66.01 MORBID (SEVERE) OBESITY DUE TO EXCESS CA 09/12/2018 YNES KURTZ MD Ot I12.9 HYPERTENSIVE CHRONIC KIDNEY DISEASE W ST 09/12/2018 YNES KURTZ MD, Ot N18.4 CHRONIC KIDNEY DISEASE, STAGE 4 (SEVERE) 09/12/2018 YNES KURTZ MD Ot Z68.41 BODY MASS INDEX (BMI) 40.0-44.9, ADULT 09/12/2018 YNES KURTZ MD, Ot Z79.899 OTHER USP (CURRENT) DRUG THERAPY 09/29/2018 YNES KURTZ MD, Ot 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) THROMBOCYTHEMIA 09/29/2018 YNES KURTZ MD, Ot D63.1 ANEMIA IN CHRONIC KIDNEY DISEASE 09/29/2018 YNES KURTZ MD, Ot E03.9 HYPOTHYROIDISM, UNSPECIFIED 09/29/2018 YNES KURTZ MD, Ot 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 09/29/2018 YNES KURTZ MD, Ot E66.01 MORBID (SEVERE) OBESITY DUE TO EXCESS CA 09/29/2018 YNES KURTZ MD Ot I12.9 HYPERTENSIVE CHRONIC KIDNEY DISEASE W ST 09/29/2018 YNES KURTZ MD Ot N18.4 CHRONIC KIDNEY DISEASE, STAGE 4 (SEVERE) 09/29/2018 YNES KURTZ MD, Ot Z68.41 BODY MASS INDEX (BMI) 40.0-44.9, ADULT 09/29/2018 YNES KURTZ MD, Ot Z79.899 OTHER SUPERINTENDENT METERS (CURRENT) DRUG THERAPY 09/30/2018 YNES KURTZ MD, Ot 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) THROMBOCYTHEMIA 09/30/2018 YNES KURTZ MD, Ot D63.1 ANEMIA IN CHRONIC KIDNEY DISEASE 09/30/2018 YNES KURTZ MD, Ot E03.9 HYPOTHYROIDISM, UNSPECIFIED 09/30/2018 YNES KURTZ MD Ot 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 09/30/2018 YNES KURTZ MD, Ot E66.01 MORBID (SEVERE) OBESITY DUE TO EXCESS CA 09/30/2018 YNES KURTZ MD, Ot I12.9 HYPERTENSIVE CHRONIC KIDNEY DISEASE W ST 09/30/2018 YNES KURTZ MD, Ot N18.4 CHRONIC KIDNEY DISEASE, STAGE 4 (SEVERE) 09/30/2018 YNES KURTZ MD, Ot Z68.41 BODY MASS INDEX (BMI) 40.0-44.9, ADULT 09/30/2018 YNES KURTZ MD, Ot Z79.899 OTHER USP (CURRENT) DRUG THERAPY 10/01/2018 OMAIRA HAYS DO Ot V58.81 FIT/ADJ VASCULAR CATHETER 10/01/2018 [facility] Ot 733.82 NONUNION OF FRACTURE 10/01/2018 [facility] Ot 996.67 INFEC INFLAM REAC DUE OTH INTRN ORTH D 10/01/2018 [facility] Ot 719.46 JOINT PAIN-L/LEG 10/01/2018 OMAIRA HAYS DO Ot 729.5 PAIN IN LIMB 10/01/2018 [facility] Ot 733.42 ASEPTIC NECROSIS FEMUR 10/01/2018 [facility] Ot 785.6 ENLARGEMENT LYMPH NODES 10/01/2018 RICHELLE ORTEGA, PIERRE Jacinto Ot Z51.81 ENCOUNTER FOR THERAPEUTIC DRUG LEVEL MON 10/01/2018 PIERRE PEOPLES MD, Ot Z79.2 USP (CURRENT) USE OF ANTIBIOTICS 10/01/2018 RICHELLE ORTEGA, PIERRE Jacinto Ot M86.9 OSTEOMYELITIS, UNSPECIFIED 10/01/2018 PIERRE PEOPLES MD Ot M86.9 OSTEOMYELITIS, UNSPECIFIED 10/01/2018 BEATA LONG MD Ot D64.9 ANEMIA, UNSPECIFIED 10/01/2018 BEATA LONG MD Ot 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 10/01/2018 BEATA LONG MD Ot E55.9 VITAMIN D DEFICIENCY, UNSPECIFIED 10/01/2018 BEATA LONG MD Ot E78.5 HYPERLIPIDEMIA, UNSPECIFIED 10/01/2018 BEATA LONG MD Ot E87.2 ACIDOSIS 10/01/2018 BEATA LONG MD, Ot E87.5 HYPERKALEMIA 10/01/2018 BEATA LONG MD Ot 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, W 10/01/2018 BEATA LONG MD Ot 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, ACQUIRED 10/01/2018 BEATA LONG MD Ot I82.612 ACUTE EMBOLISM AND THOMBOS OF SUPERFIC V 10/01/2018 BEATA LONG MD Ot I82.622 ACUTE EMBOLISM AND THROMBOSIS OF DEEP VE 10/01/2018 BEATA LONG MD Ot M86.9 OSTEOMYELITIS, UNSPECIFIED 10/01/2018 BEATA LONG MD Ot N18.5 CHRONIC KIDNEY DISEASE, STAGE 5 10/01/2018 BEATA LONG MD Ot T45.2X1A POISONING BY VITAMINS, ACCIDENTAL (UNINT 10/01/2018 BEATA LONG MD Ot Z95.828 PRESENCE OF OTHER VASCULAR IMPLANTS AND 10/01/2018 YNES KURTZ MD Ot 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) THROMBOCYTHEMIA 10/01/2018 YNES KURTZ MD Ot D63.1 ANEMIA IN CHRONIC KIDNEY DISEASE 10/01/2018 YNES KURTZ MD Ot E03.9 HYPOTHYROIDISM, UNSPECIFIED 10/01/2018 YNES KURTZ MD Ot 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 10/01/2018 YNES KURTZ MD Ot E66.01 MORBID (SEVERE) OBESITY DUE TO EXCESS CA 10/01/2018 YNES KURTZ MD, Ot I12.9 HYPERTENSIVE CHRONIC KIDNEY DISEASE W ST 10/01/2018 YNES KURTZ MD, Ot N18.4 CHRONIC KIDNEY DISEASE, STAGE 4 (SEVERE) 10/01/2018 YNES KURTZ MD, Ot Z68.41 BODY MASS INDEX (BMI) 40.0-44.9, ADULT 10/01/2018 YNES KURTZ MD, Ot Z79.899 OTHER USP (CURRENT) DRUG THERAPY 10/02/2018 PIERRE PEOPLES 730.20 UNSPECIFIED OSTEOMYELITIS, SITE UNSPECIFIED 10/02/2018 PIERRE PEOPLES M86.9 OSTEOMYELITIS, UNSPECIFIED 10/02/2018 PIERRE PEOPLES 730.20 UNSPECIFIED OSTEOMYELITIS, SITE UNSPECIFIED 10/02/2018 PIERRE PEOPLES M86.9 OSTEOMYELITIS, UNSPECIFIED 10/06/2018 JAIRON WINSTON MD, Ot M86.462 CHRONIC OSTEOMYELIT W DRAINING SINUS, LE 10/06/2018 JAIRON WINSTON MD, Ot B95.62 METHICILLIN RESIS STAPH INFCT CAUSING DI 10/06/2018 JAIRON WINSTON MD, Ot E11.622 TYPE 2 DIABETES MELLITUS WITH OTHER SKIN 10/06/2018 JAIRON WINSTON MD, Ot L97.224 NON-PRESSURE CHRONIC ULCER OF LEFT CALF 10/06/2018 JAIRON WINSTON MD, Ot M86.462 CHRONIC OSTEOMYELIT W DRAINING SINUS, LE 10/06/2018 JAIRON WINSTON MD, Ot N18.5 CHRONIC KIDNEY DISEASE, STAGE 5 10/06/2018 JAIRON WINSTON MD, Ot R53.81 OTHER MALAISE 10/06/2018 JAIRON WINSTON MD, Ot Z90.2 ACQUIRED ABSENCE OF LUNG [PART OF] 10/06/2018 JAIRON WINSTON MD, Ot B95.62 METHICILLIN RESIS STAPH INFCT CAUSING DI 10/06/2018 JAIRON WINSTON MD, Ot E11.622 TYPE 2 DIABETES MELLITUS WITH OTHER SKIN 10/06/2018 JAIRON WINSTON MD, Ot L97.224 NON-PRESSURE CHRONIC ULCER OF LEFT CALF 10/06/2018 JAIRON WINSTON MD, Ot M86.462 CHRONIC OSTEOMYELIT W DRAINING SINUS, LE 10/06/2018 TISH MD, JAIRON G Ot N18.5 CHRONIC KIDNEY DISEASE, STAGE 5 10/06/2018 JAIRON WINSTON MD, Ot R53.81 OTHER MALAISE 10/06/2018 JAIRON WINSTON MD, Ot Z90.2 ACQUIRED ABSENCE OF LUNG [PART OF] 10/09/2018 JAIRON WINSTON MD, Ot M86.462 CHRONIC OSTEOMYELIT W DRAINING SINUS, LE 10/13/2018 JAIRON WINSTON MD, Ot M86.462 CHRONIC OSTEOMYELIT W DRAINING SINUS, LE 10/28/2018 JAIRON WINSTON MD, Ot B95.62 METHICILLIN RESIS STAPH INFCT CAUSING DI 10/28/2018 JAIRON WINSTON MD, Ot E11.622 TYPE 2 DIABETES MELLITUS WITH OTHER SKIN 10/28/2018 JAIRON WINSTON MD, Ot L97.224 NON-PRESSURE CHRONIC ULCER OF LEFT CALF 10/28/2018 JAIRON WINSTON MD, Ot M86.462 CHRONIC OSTEOMYELIT W DRAINING SINUS, LE 10/28/2018 JAIRON WINSTON MD, Ot N18.5 CHRONIC KIDNEY DISEASE, STAGE 5 10/28/2018 JAIRON WINSTON MD, Ot R53.81 OTHER MALAISE 10/28/2018 JAIRON WINSTON MD, Ot Z90.2 ACQUIRED ABSENCE OF LUNG [PART OF] 10/28/2018 RICHELLE ORTEGA, PIERRE Jacinto Ot M25.532 PAIN IN LEFT WRIST 10/28/2018 RICHELLE ORTEGA, PIERRE Jacinto Ot M79.642 PAIN IN LEFT HAND 10/28/2018 PIERRE PEOPLES MD Ot M85.88 OTH DISRD OF BONE DENSITY AND STRUCTURE, 10/28/2018 PIERRE PEOPLES MD Ot M89.9 DISORDER OF BONE, UNSPECIFIED 10/29/2018 YNES KURTZ MD, Ot 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) THROMBOCYTHEMIA 10/29/2018 YNES KURTZ MD, Ot D63.1 ANEMIA IN CHRONIC KIDNEY DISEASE 10/29/2018 YNES KURTZ MD, Ot E03.9 HYPOTHYROIDISM, UNSPECIFIED 10/29/2018 YNES KURTZ MD, Ot 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 10/29/2018 YNES KURTZ MD, Ot E66.01 MORBID (SEVERE) OBESITY DUE TO EXCESS CA 10/29/2018 YNES KURTZ MD, Ot I12.9 HYPERTENSIVE CHRONIC KIDNEY DISEASE W ST 10/29/2018 YNES KURTZ MD, Ot N18.4 CHRONIC KIDNEY DISEASE, STAGE 4 (SEVERE) 10/29/2018 YNES KURTZ MD Ot Z68.41 BODY MASS INDEX (BMI) 40.0-44.9, ADULT 10/29/2018 YNES KURTZ MD Ot Z79.899 OTHER SUPERINTENDENT METERS (CURRENT) DRUG THERAPY 10/30/2018 TISH ORTEGA, JAIRON Aguilera Ot M86.462 CHRONIC OSTEOMYELIT W DRAINING SINUS, LE 11/01/2018 PIERRE PEOPLES MD, Ot M25.532 PAIN IN LEFT WRIST 11/01/2018 PIERRE PEOPLES MD, Ot M79.642 PAIN IN LEFT HAND 11/01/2018 PIERRE PEOPLES MD, Ot M85.88 OTH DISRD OF BONE DENSITY AND STRUCTURE, 11/01/2018 PIERRE PEOPLES MD, Ot M89.9 DISORDER OF BONE, UNSPECIFIED Procedures There is no data. Results Test [...] 31.4 g/dL 32.0-36.0 MCV 92.6 fL 80.0-97.0 Morrill% 10.3 % 0.0-12.0 MPV 9.8 fL 7.4-10.0 Ginny% 45.8 % 37.0-80.0 Plt 459 K/uL 150-400 RBC 3.23 M/uL 3.60-5.00 RDW 15.8 % 11.6-14.8 WBC 5.92 K/uL 5.00-10.00 Ginny 2.71 K/uL 2.00-6.90 Morrill 0.6 K/uL 0.0-0.9 Baso 0.0 K/uL 0.0-0.2 Gram Stain - 11/15/16 09:30 GRAM STAIN Gram Positive Cocci in [id number] to surgery CULTURE SOURCE left knee Vancomycin [...] 31.7 g/dL 32.0-36.0 MCV 92.2 fL 80.0-97.0 Morrill% 7.4 % 0.0-12.0 MPV 9.1 fL 7.4-10.0 Ginny% 46.1 % 37.0-80.0 Plt 422 K/uL 150-400 RBC 3.32 M/uL 3.60-5.00 RDW 15.7 % 11.6-14.8 WBC 6.33 K/uL 5.00-10.00 Ginny 2.92 K/uL 2.00-6.90 Morrill 0.5 K/uL 0.0-0.9 Baso 0.0 K/uL 0.0-0.2 [facility] [place] 11/17/16 07:00 Anion Gap 14 6-14 [...] 11/17/16 22:58 Vanco Trough 17.3 ug/mL 10.0-20.0 [facility] [place] 11/18/16 07:00 Anion Gap 13 6-14 [...] 0.4 mg/dL 0.2-1.2 TP 8.2 g/dL 6.0-8.3 BMP - 08/14/17 05:28 Anion Gap 14 6-14 BUN 63 mg/dL 5-25 Calcium 8.8 mg/dL 8.3-10.4 Chloride 112 mmol/L 95-114 CO2 22 mEq/L 22-33 Creat 3.85 mg/dL 0.50-1.50 eGFR 13 mL/min/1.73m2 >59 Glucose 89 mg/dL 70-110 Osmo 311 280-295 Potassium 4.7 mmol/L 3.5-5.3 Sodium 143 mmol/L 134-148 Gram Stain - 07/23/18 14:18 GRAM STAIN No WBCs or organisms seen. CULTURE SOURCE L [id number]\ Other Culture - 07/23/18 14:18 PRELIM CULTURE RESULTS No Growth 24 hours FINAL CULTURE RESULTS No Growth 48 hours MEDIA PLATED Setup at 14:29 on 07/23/2018 Complete blood count (CBC) with automated white blood cell (WBC) differential - 08/28/18 14:23 Blood leukocytes automated count (number/volume) 6.3 10*3/uL 4.3-11.0 Blood erythrocytes automated count (number/volume) 2.71 10*6/uL 4.35-5.85 Venous blood hemoglobin measurement (mass/volume) 8.2 g/dL 11.5-16.0 Blood hematocrit (volume fraction) 27 % 35-52 Automated erythrocyte mean corpuscular volume 100 [foz_us] 80-99 Automated erythrocyte mean corpuscular hemoglobin (mass per erythrocyte) 30 pg 25-34 Automated erythrocyte mean corpuscular hemoglobin concentration measurement ( mass/volume) 30 g/dL 32-36 Automated erythrocyte distribution width ratio 18.8 % 10.0-14.5 Automated blood platelet count (count/volume) 545 10*3/uL 130-400 Automated blood platelet mean volume measurement 9.3 [foz_us] 7.4-10.4 Automated blood neutrophils/100 leukocytes 62 % 42-75 Automated blood lymphocytes/100 leukocytes 24 % 12-44 Blood monocytes/100 leukocytes 9 % 0-12 Automated blood eosinophils/100 leukocytes 4 % 0-10 Automated blood basophils/100 leukocytes 2 % 0-10 Blood neutrophils automated count (number/volume) 3.9 10*3 1.8-7.8 Blood lymphocytes automated count (number/volume) 1.5 10*3 1.0-4.0 Blood monocytes automated count (number/volume) 0.5 10*3 0.0-1.0 Automated eosinophil count 0.3 10*3/uL 0.0-0.3 Automated blood basophil count (count/volume) 0.1 10*3/uL 0.0-0.1 Comprehensive metabolic panel - 08/28/18 14:23 Serum or plasma sodium measurement (moles/volume) 141 mmol/L 135-145 Serum or plasma potassium measurement (moles/volume) 5.2 mmol/L 3.6-5.0 Serum or plasma chloride measurement (moles/volume) 107 mmol/L 98-107 Carbon dioxide 22 mmol/L 21-32 Serum or plasma anion gap determination (moles/volume) 12 mmol/L 5-14 Serum or plasma urea nitrogen measurement (mass/volume) 39 mg/dL 7-18 Serum or plasma creatinine measurement (mass/volume) 3.83 mg/dL 0.60-1.30 Serum or plasma urea nitrogen/creatinine mass ratio 10 NRG Serum or plasma creatinine measurement with calculation of estimated glomerular filtration rate 13 NRG Serum or plasma glucose measurement (mass/volume) 192 mg/dL 70-105 Serum or plasma calcium measurement (mass/volume) 9.1 mg/dL 8.5-10.1 Serum or plasma total bilirubin measurement (mass/volume) 0.2 mg/dL 0.1-1.0 Serum or plasma alkaline phosphatase measurement (enzymatic activity/volume) 47 U/L 40-136 Serum or plasma aspartate aminotransferase measurement (enzymatic activity/ volume) 11 U/L 5-34 Serum or plasma alanine aminotransferase measurement (enzymatic activity/volume ) 12 U/L 0-55 Serum or plasma protein measurement (mass/volume) 8.0 g/dL 6.4-8.2 Serum or plasma albumin measurement (mass/volume) 2.7 g/dL 3.2-4.5 CALCIUM CORRECTED 10.1 mg/dL 8.5-10.1 Other Culture - 10/02/18 09:50 PRELIM CULTURE RESULTS Moderate Gram Positive Mixed Cristel JOCELYN / ID to [id number] contains both Coag Positive and Coag Negative Staph FINAL CULTURE RESULTS Moderate amount of Methicillin Resistant Staphylococcus aureus. No Coag Negative Staph Isolated as previously reported. MEDIA PLATED Setup at 15:39 on 10/02/2018 Sensi - 10/02/18 09:50 FINAL CULTURE RESULTS Staphylococcus aureus (Isolate 1) Ampicillin/Sulbactam <=8/4 Ampicillin 8 Amoxicillin/K Clavulanate <=4/2 Ceftriaxone <=8 Clindamycin <=0.5 Cefoxitin Screen <=4 Ciprofloxacin <=1 Daptomycin <=0.5 Erythromycin <=0.5 Nitrofurantoin <=32 Gentamicin <=4 Gentamicin Synergy Screen N/R Inducible Clindamycin N/R Levofloxacin <=1 Linezolid 4 Moxifloxacin <=0.5 Oxacillin <=0.25 Penicillin >8 Rifampin <=1 Streptomycin Synergy N/R Synercid <=0.5 Trimethoprim/ Sulfamethoxazole <=0.5/9.5 Tetracycline <=4 Vancomycin 2 Sensi - 10/02/18 09:50 Ampicillin/Sulbactam <=8/4 Ampicillin 8 Amoxicillin/K Clavulanate >4/2 Ceftriaxone 32 Clindamycin <=0.5 Cefoxitin Screen >4 Ciprofloxacin >2 Daptomycin <=0.5 Erythromycin >4 Nitrofurantoin <=32 Gentamicin <=4 Gentamicin Synergy Screen N/R Inducible Clindamycin >4/0.5 Levofloxacin >4 Linezolid 4 Moxifloxacin 4 Oxacillin >2 Penicillin 8 Rifampin <=1 Streptomycin Synergy N/R Synercid <=0.5 Trimethoprim/ Sulfamethoxazole <=0.5/9.5 Tetracycline <=4 Vancomycin 2 FINAL CULTURE RESULTS Methicillin Resistant Staphylococcus aureus ( Isolate 2) Anaerobic Culture - 10/02/18 09:50 ANAEROBIC CULTURE FINAL REPORT RESULT 1 NO ANAEROBIC GROWTH IN 72 HOURS. Anaerobic Culture - 10/02/18 09:50 Anaerobic Culture Note Encounters ACCT No. Visit Date/Time Discharge Status Pt. Type Provider Facility Loc./Unit Complaint [id number] 10/28/2018 15:23:00 10/28/2018 23:59:59 CLS Outpatient RICHELLE ORTEGA, PIERRE Jacinto [facility] RAD PAIN LEFT WRIST, HAND [id number] 10/28/2018 14:02:00 10/28/2018 23:59:59 CLS Outpatient JERARDO ORTEGA, YNES [facility] ONC [id number] 10/17/2018 09:31:00 10/17/2018 23:59:59 CLS Outpatient JAIRON WINSTON MD [facility] WOUNDCARE [id number] 10/10/2018 09:57:00 10/10/2018 23:59:59 CLS Outpatient JAIRON WINSTON MD [facility] WOUNDCARE [id number] 10/03/2018 13:59:00 10/03/2018 23:59:59 CLS Outpatient JAIRON WINSTON MD [facility] RAD CHRONIC OSTEMYELITIS [id number] 10/03/2018 12:13:00 10/03/2018 23:59:59 CLS Outpatient JAIRON WINSTON MD [facility] WOUNDCARE [id number] 09/25/2018 09:38:00 09/29/2018 00:01:00 DIS Outpatient YNES KURTZ MD [facility] ONC [id number] 08/28/2018 13:43:00 08/28/2018 23:59:59 CLS Emergency BLAKE SMITH MD [facility] ER BLOOD CLOT IN L ARM [id number] 08/28/2018 12:45:00 08/28/2018 23:59:59 CLS Outpatient BEATA LONG MD [facility] RAD CHRONIC KIDNEY DISEASE STAGE III [id number] 06/20/2018 11:00:00 06/20/2018 23:59:59 CLS Preadmit RICHELLE ORTEGA, PIERRE Jacinto [facility] CARD HEART MURMUR [id number] 06/03/2018 12:37:00 06/15/2018 00:01:00 DIS Outpatient YNES KURTZ MD [facility] ONC [id number] 05/20/2018 15:20:00 05/26/2018 00:01:00 DIS Outpatient YNES KURTZ MD [facility] ONC [id number] 03/21/2018 13:00:00 03/21/2018 13:51:00 DIS Outpatient BEATA LONG MD [facility] REHAB GAIT INSTABILITY; DECONDITIONING [id number] 02/11/2018 13:52:00 02/18/2018 00:01:00 DIS Outpatient YNES KURTZ MD [facility] ONC [id number] 09/23/2017 13:00:00 10/31/2017 16:11:00 DIS Outpatient TUNG ESPINOZA MD [facility] REHAB S/P L TIB/FIB FX [id number] 10/08/2017 13:43:00 10/30/2017 00:01:00 DIS Outpatient YNES KURTZ MD [facility] ONC [id number] 12/02/2016 07:51:00 12/02/2016 23:59:59 CLS Outpatient PIERRE PEOPLES MD [facility] M86.9, IV THERAPY [id number] 12/01/2016 09:09:00 12/01/2016 23:59:59 CLS Outpatient PIERRE PEOPLES MD [facility] OSTEOMYELITIS, UNSPECIFIED [id number] 11/25/2016 07:37:00 11/25/2016 23:59:59 CLS Outpatient PIERRE PEOPLES MD [facility] VANCO THERAPY [id number] 11/12/2016 00:40:00 11/12/2016 03:00:00 DIS Emergency GABRIELLE WALLACE DO [facility] ER GLUCOSE PROBLEMS [id number] 02/23/2014 09:47:00 02/23/2014 23:59:59 CLS Outpatient ELIZABETHTEROMAIRA REYEZ DO [facility] RAD LEFT HIP/FEMUR PAIN [id number] 07/28/2013 10:32:00 07/28/2013 23:59:59 CLS Outpatient ELIZABETHTEROMAIRA REYEZ DO [facility] RAD NON UNION FX,FEMORAL SHAFT FX,INFECTED HARDWARE [id number] 04/23/2013 14:48:00 04/23/2013 23:59:59 CLS Outpatient OMAIRA HAYS DO [facility] SDC DISCONT PICC LINE [id number] 02/20/2013 06:56:00 03/03/2013 14:10:00 DIS Inpatient OMAIRA HAYS DO Teresa [facility] ICU [id number] 02/16/2013 11:14:00 02/24/2013 14:28:00 DIS Outpatient [id number] 02/17/2013 13:31:00 02/17/2013 23:59:59 CLS Outpatient [id number] 01/07/2013 15:05:00 01/16/2013 16:45:00 DIS Inpatient [id number] 11/01/2018 00:58:00 ACT Emergency KAUSHAL BURR MD [facility] ER LOW BLOOD SUGAR [id number] 10/31/2018 11:31:00 PEN Preadmit TISH ORTEGA, JAIRON Aguilera [facility] WOUNDCARE [id number] 01/05/2013 11:12:00 Document Registration [id number] 10/02/2018 13:22:00 10/02/2018 23:59:00 DIS Outpatient PIERRE PEOPLES [id number] 07/23/2018 14:16:00 07/23/2018 23:59:00 DIS Outpatient TUNG ESPINOZA [id number] 06/29/2018 07:37:00 06/29/2018 23:59:00 DIS Outpatient PIERRE PEOPLES [id number] 11/15/2017 09:21:00 11/15/2017 23:59:00 DIS Outpatient TUNG ESPINOZA [id number] 10/04/2017 09:35:00 10/04/2017 23:59:00 DIS Outpatient TUNG ESPINOZA [id number] 08/30/2017 11:07:00 08/30/2017 23:59:00 DIS Outpatient TUNG ESPINOZA [id number] 08/21/2017 10:52:00 08/21/2017 23:59:00 DIS Outpatient TUNG ESPINOZA [id number] 08/13/2017 12:32:00 08/14/2017 11:30:00 DIS Outpatient OLGA [facility] ICU [id number] 08/13/2017 11:55:00 08/13/2017 23:59:00 DIS Outpatient PIERRE PEOPLES [id number] 01/02/2017 09:14:00 01/02/2017 23:59:00 DIS Outpatient TUNG ESPINOZA [id number] 11/13/2016 00:00:00 11/20/2016 13:20:00 DIS Inpatient OLGA, TUNG [id number] 11/06/2016 00:00:00 11/06/2016 15:45:00 DIS Outpatient TUNG ESPINOZA [id number] 11/03/2016 11:05:00 11/03/2016 12:00:00 DIS Outpatient Chey Pascual [id number] 10/31/2016 09:57:00 10/31/2016 23:59:00 DIS Outpatient TUNG ESPINOZA [id number] 10/15/2016 13:57:00 10/15/2016 23:59:00 DIS Outpatient PIERRE PEOPLES [id number] 11/13/2016 10:06:00 Document Registration [id number] 11/13/2016 10:02:12 Document Registration [id number] 11/06/2016 08:40:40 Document Registration [id number] 10/07/2018 18:11:00 Document Registration
[2018-11-01] MEDS ORDERED: NS IV 1000 ML 1,000 ML IV SCH (01:15)
[2018-11-01 01:26] LABS: BASOPHILS % (AUTO) 0 % (0-10); EOSINOPHILS % (AUTO) 0 % (0-10); HEMATOCRIT 26 % (35-52); HEMOGLOBIN 8.4 G/DL (11.5-16.0); LYMPHOCYTES # (AUTO) 1.9 X 10^3 (1.0-4.0); LYMPHOCYTES % (AUTO) 25 % (12-44); MEAN CORPUSCULAR HEMOGLOBIN 31 PG (25-34); MEAN CORPUSCULAR HGB CONC 32 G/DL (32-36); MEAN CORPUSCULAR VOLUME 95 FL (80-99); MEAN PLATELET VOLUME 10.6 FL (7.4-10.4); MONOCYTES # (AUTO) 0.9 X 10^3 (0.0-1.0); MONOCYTES % (AUTO) 12 % (0-12); NEUTROPHILS % (AUTO) 63 % (42-75); PLATELET COUNT 391 10^3/uL (130-400); RED CELL DISTRIBUTION WIDTH 16.3 % (10.0-14.5); WHITE BLOOD COUNT 7.9 10^3/uL (4.3-11.0)
--- NOTE | 2018-11-01 01:28 | ED General ---
General Chief Complaint: Glucose Problems Stated Complaint: LOW BLOOD SUGAR Nursing Triage Note: BROUGHT IN BY [facility] FOR LOW BLOOD GLUCOSE Nursing Sepsis Screen: No Definite Risk Source of Information: Patient, Caregiver (kathleen Rangel) Exam Limitations: Other History of Present Illness Date Seen by Provider: Nov 01, 2018 Time Seen by Provider: 01:00 Initial Comments Patient presents to ER by EMS with chief complaint that she's having hypoglycemic episode. She was alert and aware and able to swallow competently so EMS gave her a quarter of the tube of glucose. They rechecked her blood sugar from an initial 50 and it was 72 gave her another half tube of glucose. They arrived the ER. No IV access that time. Patient has recently started Augmentin for a right tooth abscess. She seen a dentist. 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 She's having quite a bit of swelling where she bit her cheek and her tongue not subsequent to a fall or seizure activity just because of her mouth pain apparently. The nurse who saw her today accompanies her and says that the swelling in her tongue and mouth is quite a bit more prominent now than before. She says the PT/INR has actually been very consistent and is not had to make any changes to her doses recently. Patient says he has no nausea fever but has had an occasional cough. She also indicates she is having some epigastric abdominal pain moderate. She started taking the opiates today for her tooth pain and is had one dose. She nor the nurse or sure when the last time she had a bowel movement. She also has some exposed hardware in her left knee that has been infected for the past year with osteomyelitis being treated with doxycycline outpatient and wound care by Dr. Erwin. Staff noted that today the clear serosanguineous range from the dressing has changed to sanguinous. She's not had any fevers however. They're working with [facility] orthopedics, infectious disease and nephrology. She has a fistula being developed in her right forearm. She is not on dialysis. Her renal disease secondary to her diabetes. Caregiver noted that about a year ago she had an abscess in her tooth and had put her on antibiotics and at that time she also had come the ER for hypoglycemia. She's been on the Augmentin for 1 day. Allergies and Home Medications Allergies Coded Allergies: cephalexin (Unverified Allergy, Mild, 8/7/09) Home Medications Acetaminophen 500 Mg Tablet, 1,000 MG PO Q6H PRN, (Reported) PRN PAIN/ ELEVATED TEMP TAKES 2 OF 500MG TABS EVERY 6 HOURS NEEDED Acetaminophen 325 Mg Tablet, 650 MG PO Q4hrs. PRN, (Reported) Aspirin 81 Mg Tablet.dr, 81 MG PO DAILY, (Reported) Cyanocobalamin 1,000 Mcg/Ml Vial, 1,000 MCG IM MONTHLY, (Reported) Docusate Sodium 100 Mg Capsule, 100 MG PO DAILY PRN, (Reported) PRN CONSTIPATION WHILE TAKING PAIN MEDS Enoxaparin Sodium 40 Mg/0.4 Ml Soln, 40 MG SC DAILY, (Reported) Lovenox 40mg sc daily; STOP on 03/16/13. Enoxaparin Sodium 80 Mg/0.8 Ml Syringe, 80 MG SQ DAILY Prescribed by: QUYEN CRONIN on 08/28/181509 Fluticasone Propionate 16 Gm Naspr, 1 SPRAY NSEACH HS, (Reported) Insulin Glargine,Hum.rec.anlog 300 Unit/3 Ml Insuln.pen, 24 UNITS SQ HS, ( Reported) Levothyroxine Sodium 112 Mcg Tablet, 112 MCG PO DAILY, (Reported) Lisinopril 5 Mg Tablet, 5 MG PO DAILY, (Reported) Loperamide Hcl 2 Mg Tablet, 0 PO UD PRN, (Reported) 2 CAPS INITIALLY, THEN 1 CAP AFTER EACH LOOSE STOOL. NOT TO EXCEED 8/24 HRS PRN PRN DIARRHEA Medroxyprogesterone Acet 150 Mg/1 Ml Disp.syrin, 150 MG IM EVERY 3 MONTHS, ( Reported) Metformin Hcl 1,000 Mg Tablet, 1,000 MG PO BID, (Reported) Oxycodone Hcl/Acetaminophen 1 Each Tablet, 1-2 TAB PO Q4HRS. PRN, (Reported) PERCOCET 5/325: 1-2 TABS P.O. Q4HRS.PRN PAIN. Polyethylene Glycol 17 Gm Pack, 17 GM PO DAILY @ 1999, (Reported) Sertraline Hcl 100 Mg Tab, 100 MG PO HS, (Reported) Simvastatin 20 Mg Tablet, 20 MG PO HS, (Reported) Warfarin Sodium 3 Mg Tablet, 3 MG PO DAILY Prescribed by: QUYEN CRONIN on 08/28/18 1510 Patient Home Medication List Home Medication List Reviewed: Yes Review of Systems Review of Systems Constitutional: No chills, No diaphoresis, No fever, No malaise EENTM: No hearing loss, No blurred vision Respiratory: No cough, No short of breath Cardiovascular: No chest pain, No edema Gastrointestinal: No abdominal pain, No constipation, No diarrhea, No nausea, No vomiting Genitourinary: No discharge, No dysuria Musculoskeletal: No back pain, No joint pain Skin: No pruritus, No rash Psychiatric/Neurological: Denies Headache, Denies Numbness Past Eoxmwai-Nvjyeo-Jkkmks Hx Patient Social History Alcohol Use: Denies Use Recreational Drug Use: No Smoking Status: Never a Smoker 2nd Hand Smoke Exposure: Yes Recent Foreign Travel: No Contact w/Someone Who Travel: No Recent Infectious Disease Expo: No Recent Hopitalizations: No Immunizations Up To Date Tetanus Booster (TDap): Less than 5yrs Date of Pneumonia Vaccine: Jun 15, 2011 Date of Influenza Vaccine: May 17, 2012 Seasonal Allergies Seasonal Allergies: No Past Medical History Surgeries: Yes Orthopedic Respiratory: No Cardiac: Yes Hypertension Neurological: Yes (DOWN'S SYNDROME; MR) Developmental Disorder : No Reproductive Disorders: No Genitourinary: Yes Renal Failure Gastrointestinal: No Musculoskeletal: Yes Arthritis Endocrine: Yes Diabetes, Insulin dep, Hypothyroidsim HEENT: No Cancer: No Psychosocial: Yes (DOWN'S ; DEVELOPMENTAL DISORDER) Integumentary: No Blood Disorders: Yes (CHRONIC ANEMIA--BASELINE 9-10, PER DATA INTEGRATION DEVELOPER ON 11/12/16) Physical Exam Vital Signs Vital Signs - First Documented 11/01/18 01:01 Temp 94.9 Pulse 84 Resp 18 B/P (MAP) 141/81 (101) Pulse Ox 94 O2 Delivery Room Air Capillary Refill : Less Than 3 Seconds Height, Weight, BMI Height: 5'2.00" Weight: 189lbs. 0.0oz. 85.752779di; 42.76 BMI Method:Stated General Appearance: No Apparent Distress, Obese Eyes: Bilateral Eye Normal Inspection, Bilateral Eye PERRL, Bilateral Eye EOMI HEENT: PERRL/EOMI, TMs Normal, Other (oropharynx she has a large hematoma on her tongue as well as bruising and swelling of the right cheek and mandible) Neck: Full Range of Motion, Normal Inspection, Non Tender, Supple Respiratory: Chest Non Tender, Lungs Clear, Normal Breath Sounds, No Accessory Muscle Use, No Respiratory Distress Cardiovascular: Regular Rate, Rhythm, No Edema, Normal Peripheral Pulses Gastrointestinal: Normal Bowel Sounds, Non Tender, Soft Extremity: Normal Capillary Refill, Normal Inspection, Non Tender, No Calf Tenderness, No Pedal Edema Neurologic/Psychiatric: Alert, Oriented x3 (oriented to self and place which is her baseline.), Normal Mood/Affect Skin: Ecchymosis (left forearm and right jawline), Other (posterior lateral left knee has a open wound with serosanguineous foul-smelling discharge. Wound is approximately 1 cm diameter opening with some mild erythema but no induration. Dressings are soaked with sanguinous) Progress/Results/Core Measures Suspected Sepsis Recent Fever Within 48 Hours: No Infection Criteria Present: None New/Unexplained Altered Menta: No Sepsis Screen: No Definite Risk SIRS Temperature:94.9 Pulse: 84 Respiratory Rate: 18 Laboratory Tests 11/01/18 01:10: White Blood Count 7.9 Blood Pressure 141 /81 Mean: 101 Laboratory Tests 11/01/18 01:10: Creatinine 5.00#H, Platelet Count 391, Total Bilirubin 0.2 11/01/18 02:23: INR Comment Results/Orders Lab Results Laboratory Tests Test 11/01/18 01:10 11/01/18 01:19 11/01/18 01:55 11/01/18 02:07 Range/Units White Blood Count 7.9 4.3-11.0 10^3/uL Red Blood Count 2.74 L 4.35-5.85 10^6/uL Hemoglobin 8.4 L 11.5-16.0 G/DL Hematocrit 26 L 35-52 % Mean Corpuscular Volume 95 80-99 FL Mean Corpuscular Hemoglobin 31 25-34 PG Mean Corpuscular Hemoglobin Concent 32 32-36 G/DL Red Cell Distribution Width 16.3 H 10.0-14.5 % Platelet Count 391 130-400 10^3/uL Mean Platelet Volume 10.6 H 7.4-10.4 FL Neutrophils (%) (Auto) 63 42-75 % Lymphocytes (%) (Auto) 25 12-44 % Monocytes (%) (Auto) 12 0-12 % Eosinophils (%) (Auto) 0 0-10 % Basophils (%) (Auto) 0 0-10 % Neutrophils # (Auto) 5.0 1.8-7.8 X 10^3 Lymphocytes # (Auto) 1.9 1.0-4.0 X 10^3 Monocytes # (Auto) 0.9 0.0-1.0 X 10^3 Eosinophils # (Auto) 0.0 0.0-0.3 10^3/uL Basophils # (Auto) 0.0 0.0-0.1 10^3/uL Sodium Level 138 135-145 MMOL/L Potassium Level 4.0 3.6-5.0 MMOL/L Chloride Level 105 98-107 MMOL/L Carbon Dioxide Level 21 21-32 MMOL/L Anion Gap 12 5-14 MMOL/L Blood Urea Nitrogen 124 *H 7-18 MG/DL Creatinine 5.00 #H 0.60-1.30 MG/DL Estimat Glomerular Filtration Rate 9 BUN/Creatinine Ratio 25 Glucose Level 35 *L 70-105 MG/DL Calcium Level 8.2 L 8.5-10.1 MG/DL Corrected Calcium 9.7 8.5-10.1 MG/DL Magnesium Level 2.3 1.8-2.4 MG/DL Total Bilirubin 0.2 0.1-1.0 MG/DL Aspartate Amino Transf (AST/SGOT) 26 5-34 U/L Alanine Aminotransferase (ALT/SGPT) 19 0-55 U/L Alkaline Phosphatase 95 40-136 U/L C-Reactive Protein High Sensitivity 8.90 H 0.00-0.50 MG/DL Total Protein 6.7 6.4-8.2 GM/DL Albumin 2.1 L 3.2-4.5 GM/DL Lipase 59 8-78 U/L Serum Test, Qualitative NEGATIVE NEGATIVE Glucometer 45 *L 91 70-110 MG/DL Urine Color YELLOW Urine Clarity SL CLOUDY Urine pH 6 5-9 Urine Specific [place] 1.015 L 1.016-1.022 Urine Protein 4+ NEGATIVE Urine Glucose (UA) NEGATIVE NEGATIVE Urine Ketones NEGATIVE NEGATIVE Urine Nitrite NEGATIVE NEGATIVE Urine Bilirubin NEGATIVE NEGATIVE Urine Urobilinogen NORMAL NORMAL MG/DL Urine Leukocyte Esterase NEGATIVE NEGATIVE Urine RBC (Auto) 3+ H NEGATIVE Urine RBC 2-5 H /HPF Urine WBC RARE /HPF Urine Squamous Epithelial Cells RARE /HPF Urine Renal Epithelial Cells RARE /HPF Urine Crystals NONE /LPF Urine Bacteria TRACE /HPF Urine Casts PRESENT /LPF Urine Hyaline Casts RARE /LPF Urine Mucus MODERATE H /LPF Urine Culture Indicated NO Test 11/01/18 02:23 11/01/18 03:02 11/01/18 04:09 Range/Units Prothrombin Time > 100.0 *H 12.2-14.7 SEC INR Comment 0.8-1.4 Activated Partial Thromboplast Time > 200 *H 24-35 SEC Glucometer 88 113 H 70-110 MG/DL Micro Results Microbiology 11/01/18 Influenza Types A,B Antigen (JOCELYN) - Final, Complete My Orders Orders - KAUSHAL BURR Cbc With Automated Diff (11/01/18 01:15) Comprehensive Metabolic Panel (11/01/18 01:15) Hs C Reactive Protein (11/01/18 01:15) Hcg,Qualitative Serum (11/01/18 01:15) Lipase (11/01/18 01:15) Magnesium (11/01/18 01:15) Protime With Inr (11/01/18 01:15) Partial Thromboplastin Time (11/01/18 01:15) Ua Culture If Indicated (11/01/18 01:15) Influenza A And B Antigens (11/01/18 01:15) Accucheck Stat ONCE (11/01/18 01:15) Chest 1 View, Ap/Pa Only (11/01/18 01:15) Saline Lock/Iv-Start (11/01/18 01:15) Ns Iv 1000 Ml (Sodium Chloride 0.9%) (11/01/18 01:15) D5 1/2 Ns 1000 Ml Iv Solution (Dextrose (11/01/18 01:45) Clindamycin 600 Mg/50 Ml Ivpb (Cleocin P (11/01/18 01:45) Accucheck Stat ONCE (11/01/18 02:04) Knee, Left, 2 Views (Ap & Lat) (11/01/18 02:07) Phytonadione Oral Solution (Mephyton Ora (11/01/18 03:00) Accucheck Stat ONCE (11/01/18 02:55) Acetaminophen Tablet (Tylenol Tablet) (11/01/18 04:00) Medications Given in ED Current Medications Medications Dose Ordered Sig/Merary Route Start Time Stop Time Status Last Admin Dose Admin Acetaminophen 1,000 mg ONCE ONCE PO 11/01/18 04:00 11/01/18 04:01 DC 11/01/18 04:07 1,000 MG Clindamycin Phosphate/Dextrose 50 ml @ 100 mls/hr ONCE ONCE IV 11/01/18 01:45 11/01/18 02:14 DC 11/01/18 01:43 100 MLS/HR Phytonadione 5 mg ONCE ONCE PO 11/01/18 03:00 11/01/18 03:01 DC 11/01/18 03:09 5 MG Vital Signs/I&O 11/01/18 11/01/18 11/01/18 11/01/18 01:01 02:27 03:30 04:16 Temp 94.9 96.6 98.8 Pulse 84 77 80 82 Resp 18 18 17 18 B/P (MAP) 141/81 (101) 100/82 (88) 117/70 (86) 106/78 (87) Pulse Ox 94 100 98 98 O2 Delivery Room Air Room Air Room Air Room Air Capillary Refill : Less Than 3 Seconds Blood Pressure Mean: 101 Point of Care Testing Finger Stick Blood Glucose: 45 Blood Glucose Action Taken: physician notified Progress Note #1: Time: 02:06 Progress Note Patient's blood sugars 45 on recheck and she is still able to take orals so we' re pushing Sprite and milk which she is taking well. We will recheck it in a few minutes. We went ahead and started D5 half normal saline at 100 cc per hour. We'll get blood cultures and give clindamycin which would cover for both a tooth abscess as well as possible osteomyelitis. Zosyn would possibly be a better choice however with her kidney function we will choose something that does not dialyze. I suspect either her tooth abscess or a worsening of her osteomyelitis would be the source of her labile blood sugars. The wound on her knee according to the nurse she's been with her for the past 3 years is not looking particularly inflamed or different tonight. Progress Note #2: Time: 03:05 Progress Note PT, INR off the chart, had them rerun it now still off the charts so we gave her 5 mg oral vitamin K. We'll repeat her blood sugar with the last one being in the 90s. Patient's comfortable alert and talking with her caregiver but still having thick speech secondary to her swollen tongue. Airway is secured intact with good gag reflex. I suspect that her labile sugars are secondary either to the osteomyelitis is chronic or more likely her new dental abscess. Repeat blood sugar 88. Diagnostic Imaging Diagonstic Imaging: Xray Plain Films/CT/US/NM/MRI: chest (1v) Comments No acute infiltrates or cardiopulmonary processes noted on one view chest. Reviewed: Reviewed by Me Diagonstic Imaging: Xray Plain Films/CT/US/NM/MRI: knee (right two-view) Comments No acute change in hardware or appearance of the right knee from September 2018. Reviewed: Reviewed by Me Departure Impression Primary Impression: Supratherapeutic INR Additional Impressions: Labile blood glucose Dental abscess Chronic osteomyelitis Chronic kidney disease, stage IV (severe) Disposition: 02 XFER SHT-TRM HOSP Condition: Stable Transfer Time Spoke to Accepting Phy: 03:40 Transfer Progress Notes Rocio Murillo [place], [place] accept the patient. Transfer Time: 04:15 Transfer Facility: [place], [place] Method of Transfer: EMS Departure-Patient Inst. Referrals: PIERRE PEOPLES MD (PCP/Family) Primary Care Physician Copy Copies To 1: PIERRE PEOPLES MD, TITUS J Nov 01, 2018 01:28
[2018-11-01 01:44] LABS: ALBUMIN 2.1 GM/DL (3.2-4.5); BILIRUBIN,TOTAL 0.2 MG/DL (0.1-1.0); CALCIUM 8.2 MG/DL (8.5-10.1); MAGNESIUM 2.3 MG/DL (1.8-2.4); TOTAL PROTEIN 6.7 GM/DL (6.4-8.2)
[2018-11-01] MEDS ORDERED: CLINDAMYCIN 600 MG/50 ML IVPB 50 ML IV ONE (01:45)
[2018-11-01] MEDS ORDERED: D5 1/2 NS 1000 ML IV SOLUTION 1,000 ML IV SCH (01:45)
[2018-11-01 02:17] LABS: BILIRUBIN,URINE NEGATIVE (NEGATIVE); CLARITY,URINE SL CLOUDY; COLOR,URINE YELLOW; GLUCOSE, URINE (UA) NEGATIVE (NEGATIVE); KETONES,URINE NEGATIVE (NEGATIVE); LEUKOCYTE ESTERASE ,URINE NEGATIVE (NEGATIVE); NITRITE,URINE NEGATIVE (NEGATIVE); PH,URINE 6 (5-9); PROTEIN,URINE 4+ (NEGATIVE); UROBILINOGEN,URINE NORMAL (NORMAL)
[2018-11-01 02:18] LABS: BACTERIA,URINE TRACE /HPF; HYALINE CASTS, URINE RARE /LPF; RENAL EPITHELIAL CELLS,URINE RARE /HPF; SQUAMOUS EPITHELIAL CELL,UR RARE /HPF; WBC,URINE RARE /HPF
[2018-11-01 02:27] VITALS: BP 100/82
[2018-11-01 02:54] LABS: PARTIAL THROMBOPLASTIN TIME > 200 SEC (24-35); PROTHROMBIN TIME PATIENT > 100.0 SEC (12.2-14.7)
[2018-11-01] MEDS ORDERED: VITAMIN K 1 MG/ML ORAL SOLN 1 ML SYRINGE PO ONE (03:00)
[2018-11-01 03:30] VITALS: BP 117/70
[2018-11-01] MEDS ORDERED: ACETAMINOPHEN 500 MG TAB (TYLENOL) PO ONE (04:00)
[2018-11-01 04:16] VITALS: BP 106/78
--- NOTE | 2018-11-01 06:11 | Diagnostic Imaging Report ---
INDICATION: Hypoglycemia. COMPARISON: 12/18/2012 FINDINGS: Single frontal radiographic view of the chest was obtained and demonstrates interval development of mild enlargement of the cardiac silhouette. Pulmonary vasculature is within normal limits. Lungs are clear. There is no focal consolidation, large effusion, nor pneumothorax. Bony structures show no gross acute abnormalities. IMPRESSION: 1. Interval development of mild enlargement of the cardiac silhouette. Findings may be on the basis of new mild cardiomegaly, although underlying pericardial effusion cannot be excluded. 2. No evidence of failure or focal infiltrate. Dictated by: Dictated on workstation # [id number]
--- NOTE | 2018-11-01 06:16 | Diagnostic Imaging Report ---
INDICATION: Hypoglycemia. Chronic osteomyelitis and draining sinus. COMPARISON: 10/03/2018 FINDINGS: Frontal and lateral radiographic views of the left knee were obtained and again show gross deformity of the distal femur. 2 large distal femoral osseous fragments are also identified. There is a stable gap between the 2 fractures of approximately 1 cm. Orthopedic side plate is also identified along the distal lateral margins of the femur. There is approximately 1.2 cm gap between the lateral femoral condyle and the undersurface of the orthopedic hardware. Significant lucency is also seen around the distal anchor screws and is best visualized on the lateral view. No new unexpected radiopaque foreign body or new acute osseous abnormality is seen. Included portions of proximal tibia and fibula are intact. IMPRESSION: 1. Stable chronic deformity of the distal femur. Again, orthopedic sideplate is in place, but is likely not anchored within the distal femoral fragment. Dictated by: Dictated on workstation # [id number]
== END 2018-11-01 04:16 | disposition short-term general hospital (02) ==
LOC: EDUNIT# 00:55 → ER 00:58
DX: K04.7 Periapical abscess without sinus (principal); B37.89 Other sites of candidiasis; E11.22 Type 2 diabetes mellitus with diabetic chronic kidney disease; I12.9 Hypertensive chronic kidney disease with stage 1 through stage 4 chronic kidney disease, or unspecified chronic kidney disease; N18.4 Chronic kidney disease, stage 4 (severe); Q90.9 Down syndrome, unspecified; E03.9 Hypothyroidism, unspecified; D64.9 Anemia, unspecified; Z95.0 Presence of cardiac pacemaker; Z88.1 Allergy status to other antibiotic agents; Z79.82 Long term (current) use of aspirin; Z98.890 Other specified postprocedural states; Z79.4 Long term (current) use of insulin; Z79.51 Long term (current) use of inhaled steroids; Z79.01 Long term (current) use of anticoagulants; Z86.718 Personal history of other venous thrombosis and embolism
CPT/HCPCS: 36415; 71045; 73560; 80053; 81000; 82962; 83690; 83735; 84703; 85025; 85610; 85730; 86141; 87804

== ENCOUNTER → 2018-11-17 | Outpatient (CLI) | payer MEDICARE | LOC: WOUNDCARE 14:00 | PROVIDERS: ATTEND Surgery | DX: E11.69 Type 2 diabetes mellitus with other specified complication (principal); M86.462 Chronic osteomyelitis with draining sinus, left tibia and fibula; E11.622 Type 2 diabetes mellitus with other skin ulcer; L97.224 Non-pressure chronic ulcer of left calf with necrosis of bone; N18.5 Chronic kidney disease, stage 5; R53.81 Other malaise; B95.62 Methicillin resistant Staphylococcus aureus infection as the cause of diseases classified elsewhere; Q90.2 Trisomy 21, translocation | CPT/HCPCS: 99213 ==

== ENCOUNTER → 2018-12-01 | Outpatient (CLI) | payer MEDICARE | LOC: WOUNDCARE 13:58 | PROVIDERS: ATTEND Surgery | DX: E11.69 Type 2 diabetes mellitus with other specified complication (principal); M86.462 Chronic osteomyelitis with draining sinus, left tibia and fibula; E11.622 Type 2 diabetes mellitus with other skin ulcer; L97.224 Non-pressure chronic ulcer of left calf with necrosis of bone; N18.5 Chronic kidney disease, stage 5; R53.81 Other malaise; B95.62 Methicillin resistant Staphylococcus aureus infection as the cause of diseases classified elsewhere; Q90.2 Trisomy 21, translocation | CPT/HCPCS: 99212 ==

== ENCOUNTER → 2018-12-22 | Outpatient (CLI) | payer MEDICARE | LOC: WOUNDCARE 10:39 | PROVIDERS: ATTEND Surgery | DX: E11.69 Type 2 diabetes mellitus with other specified complication (principal); M86.462 Chronic osteomyelitis with draining sinus, left tibia and fibula; E11.622 Type 2 diabetes mellitus with other skin ulcer; L97.224 Non-pressure chronic ulcer of left calf with necrosis of bone; N18.5 Chronic kidney disease, stage 5; R53.81 Other malaise; B95.62 Methicillin resistant Staphylococcus aureus infection as the cause of diseases classified elsewhere; Q90.2 Trisomy 21, translocation | CPT/HCPCS: 99212 ==

== ENCOUNTER 2018-12-25 15:43 | Outpatient (RCR) | payer MEDICARE ==
[2018-10-28 14:28] LABS: BASOPHILS % (AUTO) 0 % (0-10); EOSINOPHILS % (AUTO) 0 % (0-10); HEMATOCRIT 31 % (35-52); HEMOGLOBIN 9.6 G/DL (11.5-16.0); LYMPHOCYTES # (AUTO) 1.3 X 10^3 (1.0-4.0); LYMPHOCYTES % (AUTO) 15 % (12-44); MEAN CORPUSCULAR HEMOGLOBIN 30 PG (25-34); MEAN CORPUSCULAR HGB CONC 31 G/DL (32-36); MEAN CORPUSCULAR VOLUME 95 FL (80-99); MEAN PLATELET VOLUME 10.6 FL (7.4-10.4); MONOCYTES # (AUTO) 0.7 X 10^3 (0.0-1.0); MONOCYTES % (AUTO) 8 % (0-12); NEUTROPHILS # (AUTO) 6.6 X 10^3 (1.8-7.8); NEUTROPHILS % (AUTO) 76 % (42-75); PLATELET COUNT 371 10^3/uL (130-400); RED CELL DISTRIBUTION WIDTH 16.5 % (10.0-14.5); WHITE BLOOD COUNT 8.7 10^3/uL (4.3-11.0)
[2018-10-28 14:45] LABS: ALBUMIN 2.2 GM/DL (3.2-4.5); BILIRUBIN,TOTAL 0.2 MG/DL (0.1-1.0); CALCIUM 8.6 MG/DL (8.5-10.1); CREATININE SERUM 5.62 MG/DL (0.60-1.30); POTASSIUM 4.6 MMOL/L (3.6-5.0); TOTAL PROTEIN 7.1 GM/DL (6.4-8.2)
[2018-11-27 10:42] LABS: BASOPHILS % (AUTO) 1 % (0-10); EOSINOPHILS # (AUTO) 0.1 10^3/uL (0.0-0.3); EOSINOPHILS % (AUTO) 2 % (0-10); HEMATOCRIT 32 % (35-52); HEMOGLOBIN 9.9 G/DL (11.5-16.0); LYMPHOCYTES # (AUTO) 1.2 X 10^3 (1.0-4.0); LYMPHOCYTES % (AUTO) 36 % (12-44); MEAN CORPUSCULAR HEMOGLOBIN 30 PG (25-34); MEAN CORPUSCULAR HGB CONC 31 G/DL (32-36); MEAN CORPUSCULAR VOLUME 97 FL (80-99); MEAN PLATELET VOLUME 9.8 FL (7.4-10.4); MONOCYTES # (AUTO) 0.5 X 10^3 (0.0-1.0); MONOCYTES % (AUTO) 14 % (0-12); NEUTROPHILS # (AUTO) 1.6 X 10^3 (1.8-7.8); NEUTROPHILS % (AUTO) 47 % (42-75); PLATELET COUNT 346 10^3/uL (130-400); RED CELL DISTRIBUTION WIDTH 15.4 % (10.0-14.5); WHITE BLOOD COUNT 3.4 10^3/uL (4.3-11.0)
[2018-11-27 10:56] LABS: ALBUMIN 2.5 GM/DL (3.2-4.5); BILIRUBIN,TOTAL 0.2 MG/DL (0.1-1.0); CALCIUM 8.4 MG/DL (8.5-10.1); CREATININE SERUM 4.85 MG/DL (0.60-1.30); POTASSIUM 4.8 MMOL/L (3.6-5.0); TOTAL PROTEIN 6.6 GM/DL (6.4-8.2)
[2018-12-25 11:00] LABS: BASOPHILS # (AUTO) 0.1 10^3/uL (0.0-0.1); BASOPHILS % (AUTO) 1 % (0-10); EOSINOPHILS # (AUTO) 0.2 10^3/uL (0.0-0.3); EOSINOPHILS % (AUTO) 3 % (0-10); HEMATOCRIT 30 % (35-52); HEMOGLOBIN 9.2 G/DL (11.5-16.0); LYMPHOCYTES # (AUTO) 2.6 X 10^3 (1.0-4.0); LYMPHOCYTES % (AUTO) 35 % (12-44); MEAN CORPUSCULAR HEMOGLOBIN 30 PG (25-34); MEAN CORPUSCULAR HGB CONC 30 G/DL (32-36); MEAN CORPUSCULAR VOLUME 99 FL (80-99); MEAN PLATELET VOLUME 9.6 FL (7.4-10.4); MONOCYTES # (AUTO) 0.6 X 10^3 (0.0-1.0); MONOCYTES % (AUTO) 8 % (0-12); NEUTROPHILS # (AUTO) 4.1 X 10^3 (1.8-7.8); NEUTROPHILS % (AUTO) 54 % (42-75); PLATELET COUNT 542 10^3/uL (130-400); RED CELL DISTRIBUTION WIDTH 16.1 % (10.0-14.5); WHITE BLOOD COUNT 7.7 10^3/uL (4.3-11.0)
[2018-12-25 11:31] LABS: ALBUMIN 2.9 GM/DL (3.2-4.5); BILIRUBIN,TOTAL 0.3 MG/DL (0.1-1.0); CALCIUM 8.9 MG/DL (8.5-10.1); CREATININE SERUM 5.84 MG/DL (0.60-1.30); POTASSIUM 4.8 MMOL/L (3.6-5.0); TOTAL PROTEIN 7.3 GM/DL (6.4-8.2)
[~2018-12-25 15:43] MED LIST changes: +DARBEPOETIN 100 MCG/ML (ARANESP) 1 ML VIAL SC SCH; +DARBEPOETIN 40 MCG/ML (ARANESP) 1 ML VIAL SC SCH
== END 2019-01-26 | disposition home or self-care (01) ==
LOC: ONC 15:43
PROVIDERS: ATTEND Internal Medicine Hematology & Oncology
DX: N18.4 Chronic kidney disease, stage 4 (severe) (principal); D63.1 Anemia in chronic kidney disease; I12.9 Hypertensive chronic kidney disease with stage 1 through stage 4 chronic kidney disease, or unspecified chronic kidney disease; E11.22 Type 2 diabetes mellitus with diabetic chronic kidney disease; E03.9 Hypothyroidism, unspecified; D47.3 Essential (hemorrhagic) thrombocythemia; E66.01 Morbid (severe) obesity due to excess calories; Z68.41 Body mass index [BMI] 40.0-44.9, adult; Z79.899 Other long term (current) drug therapy; M89.9 Disorder of bone, unspecified; M85.88 Other specified disorders of bone density and structure, other site; M25.532 Pain in left wrist; M79.642 Pain in left hand
CPT/HCPCS: 36415; 73110; 73130; 80053; 82728; 83540; 85025; 96372; 99213

== ENCOUNTER → 2019-01-12 | Outpatient (CLI) | payer MEDICARE ==
[~2019-01-12] MED LIST changes: -DARBEPOETIN 100 MCG/ML (ARANESP) 1 ML VIAL SC SCH; -DARBEPOETIN 40 MCG/ML (ARANESP) 1 ML VIAL SC SCH
== END ==
LOC: WOUNDCARE 11:13
PROVIDERS: ATTEND Surgery
DX: E11.622 Type 2 diabetes mellitus with other skin ulcer (principal); L97.224 Non-pressure chronic ulcer of left calf with necrosis of bone; E11.69 Type 2 diabetes mellitus with other specified complication; M86.462 Chronic osteomyelitis with draining sinus, left tibia and fibula; E11.22 Type 2 diabetes mellitus with diabetic chronic kidney disease; N18.5 Chronic kidney disease, stage 5; R53.81 Other malaise; B95.62 Methicillin resistant Staphylococcus aureus infection as the cause of diseases classified elsewhere; Q90.2 Trisomy 21, translocation
CPT/HCPCS: 99212